=== PATIENT | female | born 1940 | race Two or more races ===

== ENCOUNTER 2021-06-16 14:56 | Emergency (ER) | payer OTHER, SELFPAY ==
--- NOTE | ~2021-06-16 | XR_ITS ---
CORRECTED REPORT WRONG NAME 06/17/21 EXAMINATION: XR hip LT 2V w AP pelvis INDICATION: Pelvic pain after fall TECHNIQUE: AP view the pelvis and two views of the left hip are obtained. COMPARISON: None available FINDINGS: Bone alignment is normal. There is no fracture. There is moderate osteoarthritis of the hips. Severe lumbar spondylosis is noted. IMPRESSION: 1. No acute osseous abnormality. Reviewed, dictated and finalized at location F. MTDD
[2021-06-16 15:08] VITALS: BP 108/61; PULSE 85; RESP 16; TEMP 36.8; O2SAT 98
--- NOTE | 2021-06-16 15:56 | ED.LOWEXIN ---
HPI - Extremity Injury (Lower) General Chief Complaint: Extremity Injury, Lower Stated Complaint: thigh injury from fall Time Seen by Provider: 06/16/21 15:50 Source: patient, family, RN notes reviewed, old records reviewed and industrial pharmacist (daughter) Mode of arrival: ambulatory Limitations: language barrier (patient speaks Korean) and other (daughter here to translate) History of Present Illness HPI Narrative: 81 year old female accompanied by daughter who translates for patient who speaks Korean presents to express care with complaint of fall onto her left hip region about 1 week ago. Patient relays information that when was on vacation and she went to get out of bed and fell onto tile floor on the posterior aspect of her left hip. Patient reports pain to posterior left hip area and outer thigh region especially if she bends over. Patient denies any pain with palpation of area, no bruising noted of area. Fall was unwitnessed and patient reports that she did not hit her head or have any other areas of discomfort at this time. Patient has had bilateral knee replacement.s complaint: hip injury Onset (ago): week(s) (1) Type of Injury: blunt Place: other (on vacation) Severity: moderate Severity scale (1-10): 4 Exacerbating factors: other (bending over) Related Data Allergies Allergy/AdvReac Type Severity Reaction Status Date / Time No Known Allergies Allergy Verified 06/16/21 15:33 Review of Systems Review of Systems: CONSTITUTIONAL: Denies fever, chills, or sweats. EYES: Denies visual changes, redness, or discharge. ENT: Denies rhinorrhea, congestion, sore throat, or otalgia. CARDIOVASCULAR: Denies chest pain, palpitations, or edema. RESPIRATORY: Denies cough or dyspnea. GASTROINTESTINAL: Denies abdominal pain, nausea, vomiting, or diarrhea. GENITOURINARY: Denies dysuria or hematuria. SKIN: Denies rash or itching. MUSCULOSKELETAL: Denies back pain,positive for posterior left hip and outer thigh pain joint pain, or myalgia. NEUROLOGIC: Denies headache, numbness, or weakness. PSYCHIATRIC: Denies anxiety or depression. All systems reviewed & are unremarkable except as noted in HPI and below PMFSH Past Medical History Medical History (Updated 06/17/21 @ 14:26 by Nya Ballard NP) Elevated cholesterol Hypertension Surgical History Surgical History (Updated 06/17/21 @ 14:26 by Nya Ballard NP) History of bilateral knee replacement Social History Social History (Updated 06/17/21 @ 14:27 by Nya Ballard NP) Smoking status: Never smoker Alcohol intake: current Alcohol use details: social Substance use: never Living arrangements: with family Gender identity (if verbalized by the patient): Female Comments At time of signature, agree with nursing past medical, surgical, social and family history. There is no relevant family history pertinent to the presenting complaint Exam Narrative: GENERAL: Well-appearing, well-nourished, and in no acute distress. HEAD: Normocephalic, atraumatic. EYES: PERRLA and EOMI. ENT: Nares clear, no rhinorrhea or epistaxis. Mucous membranes moist.TM's normal with good light reflex, throat pink with no lesions or tonsil swelling NECK: Supple.no lymphadenopathy CHEST: Clear to auscultation. No respiratory distress.SO2 98% on room air HEART: Regular rate and rhythm. No murmur heard. Normal peripheral pulses. ABDOMEN: Soft, nontender, nondistended, normal active bowel sounds. EXTREMITIES: Normal range of motion. No edema.No pain on palpation of left posterior hip or outer left thigh, pain increases when bending over patient reports, no pain stated in lumbar area, no radiation of pain down leg, Patient is able to put full weight bearing on left leg, circulation and sensation intact to left leg. SKIN: Warm, dry, no rash. NEURO: No focal deficits. Alert and oriented x3. Course Course Level of Care: Express Care Visit Vital Signs Vital signs: Vital Signs Temperature
--- NOTE | 2021-06-16 16:00 | ED.LOWEXIN ---
HPI - Extremity Injury (Lower) General Chief Complaint: Extremity Injury, Lower Stated Complaint: thigh injury from fall Time Seen by Provider: 06/16/21 15:50 Source: patient, family, RN notes reviewed and old records reviewed Mode of arrival: ambulatory Limitations: no limitations Related Data Home Medications Medication Instructions Recorded Confirmed Unable to Obtain Home Medications 06/16/21 06/16/21 Allergies Allergy/AdvReac Type Severity Reaction Status Date / Time No Known Allergies Allergy Verified 06/16/21 15:33 Review of Systems Review of Systems: CONSTITUTIONAL: Denies fever, chills, or sweats. EYES: Denies visual changes, redness, or discharge. ENT: Denies rhinorrhea, congestion, sore throat, or otalgia. CARDIOVASCULAR: Denies chest pain, palpitations, or edema. RESPIRATORY: Denies cough or dyspnea. GASTROINTESTINAL: Denies abdominal pain, nausea, vomiting, or diarrhea. GENITOURINARY: Denies dysuria or hematuria. SKIN: Denies rash or itching. MUSCULOSKELETAL: Denies back pain, joint pain, or myalgia. NEUROLOGIC: Denies headache, numbness, or weakness. PSYCHIATRIC: Denies anxiety or depression. All systems reviewed & are unremarkable except as noted in HPI and below PMFSH Comments At time of signature, agree with nursing past medical, surgical, social and family history. There is no relevant family history pertinent to the presenting complaint Exam Narrative: GENERAL: Well-appearing, well-nourished, and in no acute distress. HEAD: Normocephalic, atraumatic. EYES: PERRLA and EOMI. ENT: Nares clear, no rhinorrhea or epistaxis. Mucous membranes moist. NECK: Supple. CHEST: Clear to auscultation. No respiratory distress. HEART: Regular rate and rhythm. No murmur heard. Normal peripheral pulses. ABDOMEN: Soft, nontender, nondistended, normal active bowel sounds. EXTREMITIES: Normal range of motion. No edema. SKIN: Warm, dry, no rash. NEURO: No focal deficits. Alert and oriented x3. Course Course Level of Care: Express Care Visit Vital Signs Vital signs: Vital Signs Temperature 36.8 C 06/16/21 15:08 Pulse Rate 85 06/16/21 15:08 Respiratory Rate 16 06/16/21 15:08 Blood Pressure 108/61 06/16/21 15:08 Pulse Oximetry 98 06/16/21 15:08 Temperature 36.8 C 06/16/21 15:08 Pulse Rate 85 06/16/21 15:08 Respiratory Rate 16 06/16/21 15:08 Blood Pressure 108/61 06/16/21 15:08 Pulse Oximetry 98 06/16/21 15:08 MDM - Extremity Injury (Lower) Differential Diagnosis Differential diagnosis: Likely fracture of hip and other (Posterior hip pain, lateral thigh fall) Medical Records Attestation: I reviewed the patient's medical records. Imaging Data Attestation: I personally reviewed and interpreted this imaging study as follows: Radiologist's impression: [address] [phone] XRay ReportSigned Patient: Lakisha Nice: 1940MR#: [id number]/Sex: 81 / FAcct:[id number]: EXPBETH ADM Date: 06/16/21Attending Dr: Ordering Physician: Nya Ballard APN Date of Service: 06/16/21 Procedure(s): XR hip LT 2V w AP pelvis Accession Number(s): [id number] cc: Nya Ballard APN; UNKNOWN,DOCTOR~ EXAMINATION: XR hip LT 2V w AP pelvis INDICATION: Pelvic pain after fall TECHNIQUE: AP view the pelvis and two views of the left hip are obtained. COMPARISON: None available FINDINGS: Bone alignment is normal. There is no fracture. There is moderate osteoarthritis of the hips. Severe lumbar spondylosis is noted. IMPRESSION: 1. No acute osseous abnormality. Reviewed, dictated and finalized at location F. Dictated By: Waylon Terrazas MD 06/16/21 1548 Signed By: <Electronically signed by Waylon Terrazas MD in OV> Critical Care Time Critical Care Time Critical Care Time: No
== END 2021-06-16 16:19 | disposition home or self-care (01) ==
PROVIDERS: Emergency Provider Registered Nurse
DX: M79.652 Pain in left thigh (principal); E78.00 Pure hypercholesterolemia, unspecified; I10 Essential (primary) hypertension
CPT/HCPCS: 73502; 99213; G0463

== ENCOUNTER 2024-11-04 11:10 | Outpatient (NON) | payer OTHER, SELFPAY ==
[2024-11-04 11:54] LABS: Add Urine Microscopic? YES; Appearance Urine Cloudy (Clear); Glucose Urine UA Negative (Negative); Leukocyte Esterase Ur 1+ LEU/UL (Negative); Nitrate Urine Negative (Negative); Non Pathogenic Casts 0-2; Specific Grav Ur 1.015 (1.001-1.035)
--- OUTSIDE RECORDS SUMMARY | 2024-11-04 13:03 | XMS_ITS | Encounter Summary ---
Author Organization [facility] Address [address] [place] [address] Phone Care Team Providers Care Traditional Maori Health Practitioner Name Role Phone Sergei Kapoor DO Primary Care Provider Jaguar Julio NP Unavailable [phone] Milan Cid MD Primary Care Provider [phone] Allyssa Escobar MA Unavailable Isaías Peoples MD Primary Care Provi kori Thad Fuentes MD Unavailable [phone] Scarlett Gibbons RN Unavailable [phone] Encounter Details Date Type Department Care Team (Late st Contact Info) Description 05/23/2017 Orders Only [facility] ProviderElba MD [facility] [place] [address] Social History Tobacco Use Types Packs/Day Years Used Date Smoking Tobacco: Never Smokeless Tobacco: Never Alcohol Use Standard Drinks/Week Comments No 0 (1 standard drink = 0.6 oz pur e alcohol) Comments Unknown Sex and Gender Information Value Date Recorded Sex Assigned at Not on file Legal Sex Female 7:47 PM MEDICAL ECONOMICS CONSULTANT Gender Identity Not on file Sexual Orientation Not on file documented as of this encounter Plan of Treatment Not on file documented as of this encounter Procedures Procedure Name Priority Date/Time Associated Diagnosis Comments DISCHARGE LABORATORY CUMULATIVE REPORT 05/23/2017 12:00 AM CDT documented in this encounter Results * DISCHARGE LABORATORY CUMULATIVE REPORT (05/23/2017 12:00 AM CDT) Narrative 05/23/2017 12:00 AM CDT Ordered by an unspecified provider. us Historical Provider LAB BLOOD ORDERABLES Dione l Result documented in this encounter Visit Diagnoses Not on filedocumented in this encounter Additional Health Concerns Infection Onset Date Last Indicated Resolved Time COVID: Suspected 03/31/2023 03/31/2023 03/31/2023 2:08 PM MEDICAL ECONOMICS CONSULTANT MDR gram neg/ESBL Comment:Contact Precautions (gown and gloves) Must be off effective antibiotics for at least 48 hours, 1 negative culture from original site (if accessible) AND 1 negative culture from any open wounds AND 1 culture from any body site with an indwelling device prior to flag removal. - Konstantin MORRISSEY, RN 06/19/24 09/18/2023 09/18/2023 06/20/2024 2:23 PM C DT documented as of this encounter Care Teams Traditional Maori Health Practitioner Relationship Specialty Start Date End Date Sergei Kapoor DO [address] [facility] [address] [place] [address] PCP - General Internal Medicine 10/02/16 08/28/23 Milan Cid MD [address] [place] [address] PCP - General Family Medicine 08/29/23 04/13/24 Isaías Peoples MD [address] [facility] [address] [place] [address] PCP - General Family Practice 04/14/24 Jaguar uJlio, SENIOR NET C DEVELOPER [address] [facility] [address] [place] [address] Nurse Practitioner Geriatric Medicine 08/23/22 10/02/23 Allyssa Escobar MA [address] [facility] [address] [place] [address] ACO Care Market Developer 09/19/23 09/20/23 Thad Fuentes MD [address] [place] [address] [address] [place] [address] Surgeon Orthopedic Surgery 09/30/24 Scarlett Gibbons RN [address] [place] [address] [address] [place] [address] Rail Walker 10/28/24 documented as of this encounter
--- OUTSIDE RECORDS SUMMARY | 2024-11-04 13:04 | XMS_ITS | Encounter Summary ---
Author Organization [facility] Address [address] [place] [address] Phone Care Team Providers Care Clinical Professor Name Role Phone Isaías Peoples MD Primary Care Provi kori Encounter Details Date Type Department Care Team (Latest Contact Info) Description 09/11/2024 Transcribe Orders [facility] Preop/Pacu II [address] [place] [address] Justin Boykin MD [address] [place] [address] Pre-op testing (Primary Dx) Social History Tobacco Use Types Packs/Day Years Used Date Smoking Tobacco: Never Smokeless Tobacco: Never Alcohol Use Standard Drinks/Week Comments Yes 0 (1 standard drink = 0.6 oz pur e alcohol) rarely Social Connection and Isolation Panel Answer Date Recorded In a typical week, how many times do you talk on the phone with family, friends, or neighbors? Patient declined 08/17/2024 How often do you get togethe r with friends or relatives? Patient declined 08/17/2024 How often do you attend adventist or mandaeism serv ices? Patient declined 08/17/2024 Do you belong to any clubs o r organizations such as adventist groups, unions, fraternal or athletic groups, or school groups? Patient declined 08/17/2024 How often do you attend meet ings of the clubs or organizations you belong to? Patient declined 08/17/2024 Are you , , di vorced, , never , or living with a partner? Patient declined 08/17/2024 AUDIT-C Answer Date Recorded Q1: How often do you have a drink containing alc ohol? Patient declined 08/17/2024 Q2: How many drinks containi ng alcohol do you have on a typical day when you are drinking? Patient declined 08/17/2024 Q3: How often do you have si x or more drinks on one occasion? Patient declined 08/17/2024 Overall Financial Resource Strain (CARDIA) Answe r Date Recorded How hard is it for you to pa y for the very basics like food, housing, medical care, and heating? Patient declined 08/17/2024 [facility] - Occupational Stress Questionnaire Answer Date Recorded Do you feel stress - tense, restless, nervous, or anxious, or unable to sleep at night because your mind is troubled all the time - these days? Patient declined 08/17/2024 Exercise Vital Sign Answer Date Recorde d On average, how many days pe r week do you engage in moderate to strenuous exercise (like a brisk walk)? Patient declined On average, how many minutes do you engage in exercise at this level? Patient declined 08/17/2024 Hunger Vital Sign Answer Date Recorded Within the past 12 months, y ou worried that your food would run out before you got the money to buy more. Patient declined Within the past 12 months, t he food you bought just didn't last and you didn't have money to get more. Patient declined PRAPARE - Transportation Answer Date Re corded In the past 12 months, has l ack of transportation kept you from medical appointments or from getting medications? Patient declined 08/17/2024 In the past 12 months, has l ack of transportation kept you from meetings, work, or from getting things needed for daily living? Patient declined 08/17/2024 Housing Stability Vital Sign Answer Edi e Recorded In the last 12 months, was t here a time when you were not able to pay the mortgage or rent on time? Patient declined 08/18/19 25 In the past 12 months, how m any times have you moved where you were living? 1 08/17/2024 At any time in the past 12 m [facility], were you homeless or living in a jail (including now)? Patient declined 08/17/2024 [facility] Utilities Answer Date Recorded In the past 12 months has e electric, gas, oil, or water company threatened to shut off services in your home? Patient declined 08/17/2024 Comments No Sex and Gender Information Value Date Recorded Sex Assigned at Not on file Legal Sex Female 12:15 AM CDT Gender Identity Not on file Sexual Orientation Not on file documented as of this encounter Plan of Treatment Scheduled Orders Name Type Priority Associated Diagnoses Orde r Schedule TYPE & SCREEN (CROSSMATCH CONVERTIBLE) Blood Bank Routine Pre-op testing Expected: 09/23/2024, Expires: 12/12/2024 documented as of this encounter Visit Diagnoses Diagnosis Pre-op testing- Primary Preoperative examination, unspecified documented in this encounter Additional Health Concerns Infection Onset Date Last Indicated Resolved Time Other Comment:Possible Shingles 08/25/2024 08/25/2024 COVID - 19 09/12/2024 09/12/2024 09/22/2024 10:5 8 PM CDT documented as of this encounter Care Teams Clinical Professor Relationship Specialty Start Date End Date Isaías Peoples MD [address] [place] [address] PCP - General Family Medicine 08/17/24 documented as of this encounter
--- OUTSIDE RECORDS SUMMARY | 2024-11-04 13:04 | XMS_ITS | Encounter Summary ---
Author Organization [facility] Address [address] [place] [address] Care Team Providers Care Financial Business Analyst Name Role Phone Isaías Peoples MD Primary Care Provi kori Thad Fuentes MD Unavailable [phone] Scarlett Gibbons RN Unavailable [phone] Reason for Visit * Reason Onset Date Comments several concerns/quesitons 10/28/2024 Encounter Details Date Type Department Care Team (Late st Contact Info) Description 10/28/2024 Telephone [facility] Primary Care at [address] [place] [address] Isaías Peoples MD [address] [place] [address] [address] [place] [address] several concerns/quesitons Social History Tobacco Use Types Packs/Day Years Used Date Smoking Tobacco: Never Smokeless Tobacco: Never Alcohol Use Standard Drinks/Week Comments Not Currently 0 (1 standard drink = 0.6 oz pur e alcohol) OASIS D0700: Social Isolation Answer Da te Recorded Frequency of experiencing loneliness or isolatio n Rarely 07/16/2024 OASIS A1250: Transportation Answer Date Recorded Lack of Transportation (Medical) No 07/16/2024 Lack of Transportation (Non-Medical) No 07/16/2024 Patient Unable or Declines to Respond No 07/16/2024 OASIS B1300: Health Literacy Answer Edi e Recorded Frequency of needing help to read materials from doctor or pharmacy Often 07/16/2024 Social Connection and Isolation Panel Answer Date Recorded In a typical week, how many times do you talk on the phone with family, friends, or neighbors? More than three times a week 09/30/2024 How often do you get togethe r with friends or relatives? More than three times a week 09/30/2024 How often do you attend chur ch or mandaeism services? Never 09/30/2024 Do you belong to any clubs o r organizations such as yazidi groups, unions, fraternal or athletic groups, or school groups? No 09/30/2024 How often do you attend meet ings of the clubs or organizations you belong to? Never 09/30/2024 Are you , , di vorced, , never , or living with a partner? 09/30/2024 AUDIT-C Answer Date Recorded Q1: How often do you have a drink containing alcohol? Never 09/29/2024 Q2: How many drinks containi ng alcohol do you have on a typical day when you are drinking? Patient does not drink Q3: How often do you have si x or more drinks on one occasion? Never 09/29/2024 Overall Financial Resource Strain (CARDIA) Answe r Date Recorded How hard is it for you to pa y for the very basics like food, housing, medical care, and heating? Not very hard 09/30/2024 PHQ-2 Answer Date Recorded PHQ-2 Total Score (If total score is 3 or more points, staff should administer the PHQ-9) 0 04/17/2024 Exercise Vital Sign Answer Date Recorde d On average, how many days pe r week do you engage in moderate to strenuous exercise (like a brisk walk)? 0 days Minutes of Exercise per Session Not on file 01/04/2023 PRAPARE - Transportation Answer Date Re corded In the past 12 months, has l ack of transportation kept you from medical appointments or from getting medications? No 06/2024 In the past 12 months, has l ack of transportation kept you from meetings, work, or from getting things needed for daily living? No 09/30/2024 PHQ-9 Answer Date Recorded PHQ-9 Total Score 0 04/17/2024 Housing Stability Vital Sign Answer Edi e Recorded In the last 12 months, was t here a time when you were not able to pay the mortgage or rent on time? No 09/30/2024 In the past 12 months, how m any times have you moved where you were living? 0 09/30/2024 At any time in the past 12 m [facility], were you homeless or living in a longterm (including now)? No 09/30/2024 Social Connection and Isolation Panel Answer Date Recorded In a typical week, how many times do you talk on the phone with family, friends, or neighbors? More than three times a week 10/28/2024 How often do you get togethe r with friends or relatives? More than three times a week 10/28/2024 How often do you attend chur ch or mandaeism services? Never 10/28/2024 Do you belong to any clubs o r organizations such as yazidi groups, unions, fraternal or athletic groups, or school groups? No 10/28/2024 How often do you attend meet ings of the clubs or organizations you belong to? Never 10/28/2024 Are you , , di vorced, , never , or living with a partner? 10/28/2024 Overall Financial Resource Strain (CARDIA) Answe r Date Recorded How hard is it for you to pa y for the very basics like food, housing, medical care, and heating? Not very hard 10/28/2024 Hunger Vital Sign Answer Date Recorded Within the past 12 months, y ou worried that your food would run out before you got the money to buy more. Never true 10/29/19 25 Within the past 12 months, t he food you bought just didn't last and you didn't have money to get more. Never true 10/28/2024 PRAPARE - Transportation Answer Date Re corded In the past 12 months, has l ack of transportation kept you from medical appointments or from getting medications? No 03/2024 In the past 12 months, has l ack of transportation kept you from meetings, work, or from getting things needed for daily living? No 10/28/2024 Housing Stability Vital Sign Answer Edi e Recorded In the last 12 months, was t here a time when you were not able to pay the mortgage or rent on time? No 10/28/2024 In the past 12 months, how m any times have you moved where you were living? 0 10/28/2024 At any time in the past 12 m [facility], were you homeless or living in a longterm (including now)? No 10/28/2024 [facility] Utilities Answer Date Recorded In the past 12 months has th e electric, gas, oil, or water company threatened to shut off services in your home? No 10/28/2024 Personal Safety Answer Date Recorded Have you ever been in or are you currently in a harmful physical or emotional relationship or is someone making you feel afraid or unsafe? 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 condition/symptom, date of COVID exposure if applicable): symptoms of a UTI Details Regarding Additional Services (e.g. type of home health, type of equipment, type of test, etc.): Urinalysis/Culture Where will services be performed? (if outside of the practice, facility name, address, phone/fax offacility): [facility] Additional Comments: Dedra with [facility] called in to relay the patient has had symptoms of a UTI going on for 3 days and would like to see if the PCP will send an order and she can collect specimen. DRYING MACHINE OPERATOR reached out to the back line and was instructed to send a HP message. Does message need to be routed? Yes-Action Needed * Telephone Encounter - Lovely Murphy MA - 10/31/2024 4:02 PM CDT Called No Answer, LVM to call the office * Telephone Encounter - Scarlett Gibbons RN - 10/30/2024 2:33 PM CDT Please address below submitted on 10/28. * Telephone Encounter - Scarlett Gibbons RN - 10/28/2024 1:27 PM CDT Pt DC from [facility] 10/26 s/p An[employer]ER. She was DC'd w/o orders for HHC, can you please place an order for HHC via [facility] w/ RN, PT/OT for SOC11/03. Additionally wanting clarification of Lisinopril dosing. Initially was hypotensive and they had cuther dose to 2.5mg, prior to surgery dose was 5mg. Dtr is currently giving 5mg, BP yesterday prior to dose was 151/81, and after was 140/60. She just wants to know which dose you want her to take. She is scheduled for LINDA in office on 11/06/24, they declined being seen sooner. Pt is currently staying w/ dtr through the weekend, and then the other dtr will stay w/ her when she goes to her own home. Thank you, Scarlett MARIEN, RN, [facility] Assistant Boiler Operator [phone] documented in this encounter Plan of Treatment Scheduled Orders Name Type Priority Associated Diagnoses Orde r Schedule Urinalysis reflex to microscopic and culture Urine Microbiology Routine Dysuria Expected: 11/03/2024, Expires: 11/03/2025 documented as of this encounter Goals Goal Patient Goal Type Associated Problems Recent Progress Patient-Stated? Author Autogenera yvrose Goal Care Plan Autogenerated Problem Rosalinda Jeter MA documented as of this encounter Visit Diagnoses Diagnosis Dysuria- Primary documented in this encounter Additional Health Concerns Active Problems Noted Date Diagnosed Date Autogenerated Problem 09/30/2024 documented as of this encounter Care Teams Financial Business Analyst Relationship Specialty Start Date End Date Isaías Peoples MD [address] [facility] [address] [place] [address] PCP - General Family Practice 04/14/24 Thad Fuentes MD [address] [facility] [address] [place] [address] Surgeon Orthopedic Surgery 09/30/24 Scarlett Gibbons, RN [address] [place] [address] [address] [place] [address] Assistant Boiler Operator 10/28/24 documented as of this encounter
--- OUTSIDE RECORDS SUMMARY | 2024-11-04 13:04 | XMS_ITS | Clinical Summary ---
Author Organization [facility] Address [address] [place] [address] Phone Care Team Providers Care Blood Bank Calendar Control Clerk Name Role Phone Isaías Peoples MD Primary Care Provi kori Allergies Active Allergy Reactions Criticality Noted Date Comments Cefazolin Rash 08/21/2024 Fentanyl And Related Rash 08/21/2024 Morphine Rash,Itching 08/17/2024 Penicillins Hives Medium 08/17/2024 Sulfa Antibiotics Rash 01/15/2023 Medications diclofenac (VOLTAREN) 75 MG Tablet Delayed Response Take 75 mg by mouth daily. 5 Active DULoxetine (CYMBALTA) [address] Particles Take 30 mg by mouth every morning. 5 04/17/19 Active rosuvastatin (CRESTOR) 40 MG Tablet Take 40 mg by mouth daily. 5 Active pantoprazole (PROTONIX) 40 MG Tablet Delayed Response Take 40 mg by mouth daily. Active ezetimibe (ZETIA) 10 MG Tablet Take 10 mg by mouth daily. 5 07/15/19 26 Active diphenhydrAMINE (BENADRYL) 25 MG Capsule Take 1 Capsule by mouth 4 times daily. 100 Capsule 5 Active Additional Information Patient not taking.Reported on 09/11/2024 gabapentin (NEURONTIN) 100 MG Capsule Take 1 Capsule by mouth 3 times daily. 90 Capsule 5 Active Additional Information Patient taking differently:100 mg Oral 3 TIMES DAILY,Indications: Neuropathic Pain, Reported on 09/11/2024 hydrocortisone 1 % Cream Apply 2 times daily. Application Site: skin rash (Description and Location) Active Additional Information Patient taking differently:TopicalPRN, Application Site: skin rash (Description and Location), Reported on 09/11/2024 lisinopril (PRINIVIL, ZESTRIL) 5 MG Tablet Take 1 Tablet by mouth every evening. 90 Tablet 5 Active polyethylene glycol (GLYCOLAX, MIRALAX) 17 g Pack Take 1 Packet by mouth daily. Dissolve in 4-8 oz of liquid. 90 Packet 5 Active traMADol (ULTRAM) 50 MG TabletIndicatio ns:Right hip pain,Avascular necrosis of bone of hip, right (HCC) Take 1 Tablet by mouth every 6 hours as needed for Moderate or more severe pain. 50 Tablet 5 Active Active Problems Problem Noted Date Diagnosed Date Hypertension 08/25/2024 Drug rash 08/22/2024 Primary osteoarthritis of right hip 08/21/2024 Avascular necrosis of bone of hip, right 025 Weakness 08/17/2024 Encounters Date Type Department Care Team Description 09/12/2024 Transcribe Orders [facility] Central Scheduling [address] [place] [address] Justin Boykin MD Osteoarthritis of right hip, unspecified osteoarthritis type (Primary Dx) 09/11/2024 Transcribe Orders [facility] Preop/Pacu II [address] [place] [address] Justin oBykin MD Pre-op testing (Primary Dx) 09/11/2024 Travel 08/21/2024 8:11 AM CDT Anesthesia Event [facility] Periop [address] [place] [address] Barney Hansen APRN, PITO 08/21/2024 7:10 AM CDT - 08/21/2024 10:10 AM CDT [facility] Periop [address] [place] [address] Justin Boykin MD Not Performed RIGHT TOTAL HIP REPLACEMENT 08/17/2024 6:44 AM CDT - 08/25/2024 6:08 PM CDT Hospital Encounter [facility] Med Surg [address] [place] [phone] Vandana Bernal MD Patel, Satyen V, MD Dianati, Behfar, MD Avascular necrosis of bone of hip, right (HCC) Discharge Disposition: Discharged/Transferred to [facility] 08/17/2024 Travel from Last 3 Months Family History Medical History Relation Name Comments Chronic Obstructive Pulmonary Disease Father Hypertension Mother Stroke Mother Relation Name Status Comments Father Mother Social History Tobacco Use Types Packs/Day Years Used Date Smoking Tobacco: Never Smokeless Tobacco: Never Tobacco Cessation:Counseling Given: Not Answered Alcohol Use Standard Drinks/Week Comments Yes 0 [...] declined 08/17/2024 How often do you attend protestant or sikh serv ices? Patient declined 08/17/2024 Do you belong to any clubs o r organizations such as protestant groups, unions, fraternal or athletic groups, or [...] medical care, and heating? Patient declined 08/17/2024 [facility] Olla of Occupat ional [facility] - Occupational Stress Questionnaire Answer Date Recorded [...] any time in the past 12 m [facility], were you homeless or living in a fci (including now)? Patient declined 08/17/2024 [facility] Utilities Answer Date Recorded In the past 12 months has th e electric, gas, oil, or water company threatened to shut off services in your home? Patient declined 08/17/2024 Comments No Sex and Gender Information Value Date Recorded Sex Assigned at Not on file Legal Sex Female 12:15 AM CDT Gender Identity Not on file Sexual Orientation Not on file Last Filed Vital Signs Vital Sign Reading Time Taken Comments Blood Pressure 114/39 08/25/2024 1:49 PM CDT rn notified Pulse 84 08/25/2024 1:49 PM CDT Temperature 37.2 C (98.9 F) 08/25/2024 1:49 PM CDT Respiratory Rate 18 08/25/2024 1:49 PM CDT Oxygen Saturation 96% 08/25/2024 1:4 9 PM CDT Inhaled Oxygen Concentration - - Weight 72.9 kg (160 lb 12.8 oz) 09/11/2024 1:28 PM CDT Height 160 cm (5' 3) 09/11/2024 1:28 PM CDT Body Mass Index 28.48 09/11/2024 1:28 PM CDT Plan of Treatment Health Maintenance Due Date Last Done Comments Hepatitis C Virus (HCV) Screening 1940 TdaP Immunization 1940 Respiratory Syncytial Virus (RSV) Immunization (Adult) (1 - 1-dose 75+ series) 2013 DEXA Bone Density 01/06/2023 01/06/2021 Influenza Immunization (#1) 2024 11/0 10/2022, 12/09/2021, 12/08/2021, Additional history exists SARS-COV-2 Immunization ( season) 2024 05/04/2020 Pneumococcal Immunization (50+ years) Completed 04/19/2015, 02/22/2014 Zoster Immunization Completed 03/31/2020, 03/06/2019, 01/04/2019 Hepatitis B Immunization Aged Out No longer eligible based on patient's age to complete this topic Human Papillomavirus (HPV) Immunization Aged Out No longer eligible based on patient's age to complete this topic Meningococcal Immunization (ACWY) Aged Out No longer eligible based on patient's age to complete this topic Rotavirus Immunization Aged Out No lo nger eligible based on patient's age to complete this topic Procedures Procedure Name Priority Date/Time Associated Diagnosis Comments CBC WITH AUTO DIFFERENTIAL Routine 08/25/2024 4:59 AM CDT BASIC METABOLIC PANEL W/ CALCIUM TOTAL Routine 08/25/2024 4:59 AM CDT COMPLETE BLOOD COUNT (CBC) WITH DIFF Routine 08/25/2024 4:59 AM CDT CBC WITH AUTO DIFFERENTIAL Routine 08/24/2024 4:41 AM CDT BASIC METABOLIC PANEL W/ CALCIUM TOTAL Routine 08/24/2024 4:41 AM CDT COMPLETE BLOOD COUNT (CBC) WITH DIFF Routine 08/24/2024 4:41 AM CDT CBC WITH AUTO DIFFERENTIAL Routine 08/23/2024 4:14 AM CDT BASIC METABOLIC PANEL W/ CALCIUM TOTAL Routine 08/23/2024 4:14 AM CDT COMPLETE BLOOD COUNT (CBC) WITH DIFF Routine 08/23/2024 4:14 AM CDT CBC WITH AUTO DIFFERENTIAL Routine 08/22/2024 6:42 AM CDT COMPLETE BLOOD COUNT (CBC) WITH DIFF Routine 08/22/2024 6:42 AM CDT BASIC METABOLIC PANEL W/ CALCIUM TOTAL Routine 08/22/2024 6:42 AM CDT INTUBATION IN OR Routine 08/21/2024 8:41 AM CDT CBC WITH AUTO DIFFERENTIAL Routine 08/21/2024 6:11 AM CDT COMPLETE BLOOD COUNT (CBC) WITH DIFF Routine 08/21/2024 6:11 AM CDT BASIC METABOLIC PANEL W/ CALCIUM TOTAL Routine 08/21/2024 6:11 AM CDT CBC WITH AUTO DIFFERENTIAL Routine 08/20/2024 6:19 AM CDT TYPE & SCREEN (CROSSMATCH CONVERTIBLE) Routine 08/20/2024 6:19 AM CDT COMPLETE BLOOD COUNT (CBC) WITH DIFF Routine 08/20/2024 6:19 AM CDT BASIC METABOLIC PANEL W/ CALCIUM TOTAL Routine 08/20/2024 6:19 AM CDT ABO/RH (D) RECHECK Routine 08/20/2024 4: 24 AM CDT XR HIP 2-3 VIEWS W/PELVIS UNILATERAL RIGHT Routine 08/19/2024 7:47 PM CDT XR CHEST SINGLE VIEW PORTABLE Routine 08/19/2024 7:44 PM CDT CBC WITH AUTO DIFFERENTIAL Routine 08/19/2024 4:24 AM CDT BASIC METABOLIC PANEL W/ CALCIUM TOTAL Routine 08/19/2024 4:24 AM CDT COMPLETE BLOOD COUNT (CBC) WITH DIFF Routine 08/19/2024 4:24 AM CDT ADULT TRANS THORACIC ECHO 2D COMPLT W CONT Routine 08/18/2024 11:20 AM CDT US PELVIS LIMITED-NON OB Routine 08/18/2024 8:10 AM CDT CBC WITH AUTO DIFFERENTIAL Routine 08/18/2024 3:59 AM CDT LACTIC ACID (LACTATE) Routine 08/18/2024 3:59 AM CDT BASIC METABOLIC PANEL W/ CALCIUM TOTAL Routine 08/18/2024 3:59 AM CDT COMPLETE BLOOD COUNT (CBC) WITH DIFF Routine 08/18/2024 3:59 AM CDT LACTIC ACID (LACTATE) STAT 08/17/2024 3:02 PM CDT CULTURE, BLOOD STAT 08/17/2024 3:02 PM CDT CULTURE, BLOOD STAT 08/17/2024 3:[address] RIGHT HIP WO CONTRAST Stat with Interpretation 08/17/2024 12:51 PM CDT URINALYSIS REFLEX IF INDICATED BY ABNORMAL RESULTS STAT 08/17/2024 10:43 AM CDT CREATINE KINASE (CK) TOTAL STAT 08/17/2024 8:31 AM CDT C-REACTIVE PROTEIN (CRP) QUANT STAT 08/17/2024 8:31 AM CDT TROPONIN I, HIGH SENSITIVITY (HSTRP) STAT 08/17/2024 8:31 AM CDT XR FEMUR MIN 2V RIGHT STAT 08/17/2024 8:01 AM CDT XR KNEE 1 OR 2 VIEWS RIGHT STAT 08/17/2024 8:01 AM CDT CBC WITH AUTO DIFFERENTIAL STAT 08/17/2024 7:17 AM CDT HEMOGLOBIN A1C W/ ESTIMATED GLUCOSE STAT 08/17/2024 7:17 AM CDT ERYTHROCYTE SEDIMENTATION RATE (ESR) STAT 08/17/2024 7:17 AM CDT TROPONIN I, HIGH SENSITIVITY (HSTRP) STAT 08/17/2024 7:17 AM CDT CMP (COMPREHENSIVE METABOLIC PANEL) STAT 08/17/2024 7:17 AM CDT COMPLETE BLOOD COUNT (CBC) WITH DIFF STAT 08/17/2024 7:17 AM CDT EKG 12 LEAD STAT 08/17/2024 6:53 AM CDT CRITICAL CARE Routine 08/17/2024 6:48 AM CDT EKG SCAN 08/17/2024 12:00 AM CDT from Last 3 Months Results * (ABNORMAL) CBC with Auto Differential (08/25/2024 4:59 AM CDT) Only the most recent of9 resultswithin the time period is included. WBC 13.57(H) 4.00 - 12.00 10(3)/mcL 08/25/2024 5:16 AM CDT [facility] RBC 3.61(L) 3.80 - 5.30 10(6)/mcL 08/25/2024 5:16 AM CDT [facility] HEMOGLOBIN (HGB) 10.9(L) 12.0 - 15.8 g/dL 08/25/2024 5:16 AM CDT [facility] HEMATOCRIT (HCT) 33.7(L) 36.0 - 47.0 % 08/25/2024 5:16 AM CDT [facility] MCV 93.4 82.0 - 96.0 fL 08/25/2024 5:16 AM CDT [facility] MCH 30.2 26.0 - 34.0 pg 08/25/2024 5:16 AM CDT [facility] MCHC 32.3 31.0 - 36.0 g/dL 08/25/2024 5:16 AM CDT [facility] PLATELET COUNT 284 140 - 440 10(3)/mcL 08/25/2024 5:16 AM CDT [facility] RDW 13.4 11.8 - 15.5 % 08/25/2024 5:16 AM CDT [facility] MPV 9.8 9.7 - 12.4 fL 08/25/2024 5:16 AM CDT [facility] NEUTROPHILS 84.3(H) 47.0 - 73.0 % 08/25/2024 5:16 AM CDT [facility] LYMPHOCYTES 10.9(L) 18.0 - 42.0 % 08/25/2024 5:16 AM CDT [facility] MONOCYTES 2.8(L) 4.0 - 12.0 % 08/25/2024 5:16 AM CDT [facility] EOSINOPHILS 1.0 0.0 - 5.0 % 08/25/2024 5:16 AM CDT [facility] BASOPHILS 0.3 0.0 - 1.0 % 08/25/2024 5:16 AM CDT [facility] IMMATURE GRANULOCYTE 0.7(H) 0.0 - 0.4 % 08/25/2024 5:16 AM CDT [facility] Comment:Immature Granulocyte s includes Metamyelocytes, Myelocytes, and Promyelocytes. ABSOLUTE NEUTROPHILS 11.43(H) 1.60 - 7.70 10(3)/mcL 08/25/2024 5:16 AM CDT [facility] ABSOLUTE LYMPHOCYTES 1.48 1.30 - 3.20 10(3)/mcL 08/25/2024 5:16 AM CDT [facility] ABSOLUTE MONOCYTES 0.38 0.20 - 1.00 10(3)/[facility] 08/25/2024 5:16 AM CDT [facility] ABSOLUTE EOSINOPHIL 0.14 0.00 - 0.40 10(3)/[facility] 08/25/2024 5:16 AM CDT [facility] ABSOLUTE BASOPHILS 0.04 0.00 - 0.10 10(3)/[facility] 08/25/2024 5:16 AM CDT [facility] ABSOLUTE IMMATURE GRANULOCYTE 0.10(H) 0.00 - 0.03 10 (3) mcL. 08/25/2024 5:16 AM CDT [facility] NRBC PER 100 WBC 0 08/26/19 5:16 AM CDT [facility] Blood Venipuncture / Unknown 08/25/2024 4:59 AM CDT 08/25/2024 5:08 AM CDT us Cuca Conde CONCRETE BATCHER, CARRIER DRIVER HEMATOLOGY ORDERABLES Final Result [facility] [address] [place] [address] * (ABNORMAL) Basic Metabolic Panel w/ Calcium Total (08/25/2024 4:59 AM CDT) Only the most recent of8 resultswithin the time period is included. SODIUM 136 136 - 145 mmol/L 08/25/2024 5:38 AM CDT [facility] POTASSIUM 5.2(H) 3.5 - 5.1 mmol/L 08/25/2024 5:38 AM CDT [facility] CHLORIDE 105 98 - 107 mmol/L 08/25/2024 5:38 AM CDT [facility] CO2, VENOUS 22 22 - 30 mmol/L 08/25/2024 5:38 AM CDT [facility] ANION GAP 14.2 <18.0 mmol/L 08/25/2024 5:38 AM CDT [facility] GLUCOSE 142(H) 70 - 99 mg/dL 08/25/2024 5:38 AM CDT [facility] BUN 29(H) 10 - 20 mg/dL 08/25/2024 5:38 AM CDT [facility] CREATININE, BLOOD 0.73 0.60 - 1.00 mg/dL 08/25/2024 5:38 AM CDT [facility] BUN/CREATININE RATIO 40(H) 12 - 20 ratio 08/25/2024 5:38 AM CDT [facility] CALCIUM 9.0 8.7 - 10.5 mg/dL 08/25/2024 5:38 AM CDT [facility] GFR, ESTIMATED >60 >=60 08/25/2024 5:38 AM CDT [facility] Comment: Creatinine Clearance is the preferred criteria for selecting drug dose adjustments in renally impaired patients. The GFR is provided as additional pertinent clinical information. GFR is reported in mL/min/1.73 sq m. Calculation based on the Chronic Kidney Disease Epidemiology Collaboration (CKD- EPI) equation refit without adjustment for race. GFR, EST. >60 >=60 08/25/ 025 5:38 AM CDT [facility] GFR, EST. NONAFRICAN >60 >=60 08/25/2024 5:38 AM CDT [facility] Blood Venipuncture / Unknown 08/25/2024 4:59 AM CDT 08/25/2024 5:08 AM CDT Cuca Conde APRN, CNP CHEMISTRY ORDERABLES Final Result [facility] [address] [place] [address] * Intubation in OR (08/21/2024 8:41 AM CDT) Narrative Barney Hansen APRN, CRNA - 08/21/2024 8:41 AM CDT Barney Hansen APRN, CRNA 08/21/2024 8:42 AM Intubation in OR Staffing Performed: resident/PITO Resident/FINANCIAL INTERN: Barney Hansen APRN, CRNA Performed by: Barney Hansen APRN, CRNA Authorized by: Barney Hansen APRN, CRNA Overall Difficulty: Easy Procedure Details Ease of mask ventilation: not attempted Intubation Site: oral Tube Type: Standard Cuffed: yes Intubation Method: Direct laryngoscopy Cricoid Pressure: Yes Rapid Sequence: No Blade Used: MAC Blade size: #4 Stylet Used: Yes Laryngeal View: Grade I Tube Size: 7 mmConfirmation: breath sounds and +EtCO2 Depth: 19 cm Atraumatic: Atraumatic intubation Barney Hansen APRN, CRNA ANESTHESIA ORDERAB LES Final Result * TYPE & SCREEN (CROSSMATCH CONVERTIBLE) (08/20/2024 6:19 AM CDT) ABO TYPING A 08/20/2024 7:57 AM CDT [facility] RH Positive 08/20/2024 7:57 AM CDT [facility] ABSC Negative 08/20/2024 7:57 AM CDT [facility] Blood Venipuncture / Unknown 08/20/2024 6:19 AM CDT 08/20/2024 6:35 AM CDT us Justin Boykin MD BLOOD BANK ORDERABLES Edited Res ult - Final Performing Organization Address [facility]/ZIP Co de Phone Number [facility] [address] [place] [address] * ABO/RH (D) RECHECK (08/20/2024 4:24 AM CDT) ABO TYPING A 08/20/2024 10:52 AM CDT [facility] RH Positive 08/20/2024 10:52 AM CDT [facility] Blood Venipuncture / Unknown 08/20/2024 4:24 AM CDT 08/20/2024 9:38 AM CDT us Yolis Garcia MD PhD BLOOD BANK ORDERABLES Final Result Performing Organization Address [facility] Co de Phone Number [facility] [address] [place] [address] * XR HIP 2-3 VIEWS W/PELVIS UNILATERAL RIGHT (08/19/2024 7:47 PM CDT) Anatomical Region Laterality Modality LOWER EXTREMITY, hip, Pelvis Right Dig ital Radiography 08/19/2024 8:06 PM CDT Impressions 08/19/2024 8:08 PM CDT IMPRESSION: Degenerative change involving both hips, right greater than left. No evidence of fracture. Narrative 08/19/2024 8:08 PM CDT EXAM DESCRIPTION: XR HIP 2-3 VIEWS W/PELVIS UNILATERAL RIGHT REASON FOR STUDY: pt is having severe RT hip pain and is bone on bone. hx of DJD. pt schedule for surgery. TECHNIQUE: Three radiographic views of the pelvis and right hip . COMPARISON: None. FINDINGS: Three views of the pelvis and right hip demonstrate no fracture. There is degenerative axial and superior narrowing of the right hip joint and degenerative axial narrowing of the left hip joint. There is some flattening of the right femoral head with osteophytic spurring about the right acetabulum and right femoral head. Degenerative change involving the visualized lower lumbar spine. THIS IS AN ELECTRONICALLY VERIFIED FINAL REPORT 08/19/2024 8:06 PM - Electronically signed by Barney Torres M.D. KT: JILLIAN Report ID: [id number] Reading Location: [id number] Procedure Note Barney Torres MD - 08/19/2024 EXAM DESCRIPTION: XR HIP 2-3 VIEWS W/PELVIS UNILATERAL RIGHT REASON FOR STUDY: pt is having severe RT hip pain and is bone on bone. hx of DJD. pt schedule for surgery. TECHNIQUE: Three radiographic views of the pelvis and right hip . COMPARISON: None. FINDINGS: Three views of the pelvis and right hip demonstrate no fracture. There is degenerative axial and superior narrowing of the right hip joint and degenerative axial narrowing of the left hip joint. There is some flattening of the right femoral head with osteophytic spurring about the right acetabulum and right femoral head. Degenerative change involving the visualized lower lumbar spine. THIS IS AN ELECTRONICALLY VERIFIED FINAL REPORT 08/19/2024 8:06 PM - Electronically signed by Barney Torres M.D. KT: JILLIAN Report ID: [id number] Reading Location: [id number] IMPRESSION: Degenerative change involving both hips, right greater than left. No evidence of fracture. Justin Boykin MD IMG DIAGNOSTIC ORDERABLES Final Result * XR CHEST SINGLE VIEW PORTABLE (08/19/2024 7:44 PM CDT) Anatomical Region Laterality Modality Chest N/A Computed Radiogr aphy 08/19/2024 8:07 PM CDT Impressions 08/19/2024 8:10 PM CDT IMPRESSION: 1. Poor inspiratory result with bibasilar atelectasis. 2. Diffuse bilateral coarse interstitial infiltrates suggesting fibrosis. Narrative 08/19/2024 8:10 PM CDT EXAM DESCRIPTION: XR CHEST SINGLE VIEW PORTABLE REASON FOR STUDY: Preop exam for RT hip surgery. hx of HTN TECHNIQUE: 1 radiographic view(s) of the chest. COMPARISON: 02/12/2013 FINDINGS: LUNGS: Poor inspiratory result and elevation the right hemidiaphragm with atelectatic changes at the lung bases. Diffuse bilateral coarse interstitial infiltrates suggesting fibrosis. No pleural effusion. No pneumothorax. HEART/MEDIASTINUM: Cardiac silhouette normal in size. Mediastinal and hilar contours appear normal. LINES/TUBES: None. BONES: No acute osseous abnormality. THIS IS AN ELECTRONICALLY VERIFIED FINAL REPORT 08/19/2024 8:07 PM - Electronically signed by Barney Torres M.D. KT: JILLIAN Report ID: [id number] Reading Location: [id number] Procedure Note Barney Torres MD - 08/19/2024 EXAM DESCRIPTION: XR CHEST SINGLE VIEW PORTABLE REASON FOR STUDY: Preop exam for RT hip surgery. hx of HTN TECHNIQUE: 1 radiographic view(s) of the chest. COMPARISON: 02/12/2013 FINDINGS: LUNGS: Poor inspiratory result and elevation the right hemidiaphragm with atelectatic changes at the lung bases. Diffuse bilateral coarse interstitial infiltrates suggesting fibrosis. No pleural effusion. No pneumothorax. HEART/MEDIASTINUM: Cardiac silhouette normal in size. Mediastinal and hilar contours appear normal. LINES/TUBES: None. BONES: No acute osseous abnormality. THIS IS AN ELECTRONICALLY VERIFIED FINAL REPORT 08/19/2024 8:07 PM - Electronically signed by Barney Torres M.D. KT: JILLIAN Report ID: [id number] Reading Location: [id number] IMPRESSION: 1. Poor inspiratory result with bibasilar atelectasis. 2. Diffuse bilateral coarse interstitial infiltrates suggesting fibrosis. Justin Boykin MD IMG DIAGNOSTIC ORDERABLES Final Result * ADULT TRANS THORACIC ECHO 2D COMPLT W CONT (08/18/2024 11:20 AM CDT) AV Peak Grad mmHg 15.21 mmHg RESULTING AGENCY Mean Aortic Valve Gradient (MAVG) 8 mmHg RESULTING AGENCY Est PA Sys Press mmHg 24.16 mmHg RESULTING AGENCY LV end pipo diam cm 4.1 cm RESULTING AGENCY LV end sys diam cm 2.8 cm RESULTING AGENCY Aortic Root Diam cm 2.7 cm RESULTING AGENCY LA vol index ml/m2 35 ml/m2 RESULTING AGENCY LVOT Peak Kevin m/sec 0.897 m/sec RESULTING AGENCY AV Peak Kevin m/sec 1.95 m/sec RESULTING AGENCY MV Mean Grad mmHg 3 mmHg RESULTING AGENCY MVA by PHT cm2 4.49 cm2 RESUL TING AGENCY E/A Ratio 0.61 RESULTING AGENCY TR Kevin m/sec 2.3 m/sec RESULTI NG AGENCY E/E' 14.6 RESULTING AGENCY AV Area (VTI) cm2 1.78 cm2 RESULTING AGENCY RV Sys Pressure mmHg 24.16 mmHg RESULTING AGENCY SEPTUM DIASTOLIC CM 1.5 cm RESULTING AGENCY PW DIASTOLIC CM 1.5 cm RESU LTING AGENCY LA VOLUME 64.9 ml RESULTING AGENCY LV EF(estimated)% 63 RESULTING AGENCY Anatomical Region Laterality Modality CARDIO N/A Ultrasound Narrative 08/18/2024 1:41 PM CDT Transthoracic Echocardiography Report (TTE) Patient name DAVID GUILLORY 1940 Patient ID (UP) [id number] Indications: Hypertensive heart disease and Hypertension. Study Date08/18/2024 Technical quality: Adequate Limitation Reason: Lung artifact Type of Study: TTE procedure: Adult Trans Thoracic Echo 2D Complete, Adult Trans Thoracic Echo 2D Complt W Cont. Priority:RoutineBP: 177/73 mmHg Conclusions Summary The left ventricle is normal in size with severe concentric hypertrophy. The systolic function is normal (estimated EF 60-65%). No regional wall motion abnormalities. Grade I diastolic dysfunction. Normal right ventricular cavity size and normal systolic function. Left atrium is borderline enlarged. Calculated left atrial volume index 35 mL/m2. No hemodynamically significant valvular abnormalities. There is no evidence of pulmonary hypertension with estimated PASP 24 mmHg. Findings Mitral Valve The mitral valve is normal. There is no evidence of mitral stenosis. There is no significant mitral regurgitation. Aortic Valve The aortic valve is trileaflet with normal leaflet excursion. There is no evidence of aortic valve stenosis. There is no significant aortic valve insufficiency. Tricuspid Valve The tricuspid valve is normal. There is no evidence of tricuspid stenosis. There is mild tricuspid regurgitation. There is no evidence of pulmonary hypertension with estimated PASP 24 mmHg. Pulmonic Valve The pulmonic valve is not well visualized. There is no evidence of pulmonic stenosis. There is no significant pulmonic valve regurgitation. Left Atrium Left atrium is borderline enlarged. Calculated left atrial volume index 35 mL/m2. Left Ventricle The left ventricle is normal in size with severe concentric hypertrophy. The systolic function is normal (estimated EF 60-65%). No regional wall motion abnormalities. Grade I diastolic dysfunction. Right Atrium The right atrium size is normal. Right Ventricle Normal right ventricular cavity size and normal systolic function. Pericardial Effusion The pericardium is normal. There is no pericardial effusion visualized. Miscellaneous Aortic root is normal in size. The proximal ascending aorta is mildly dilated at 3.2 cm but normal when indexed for BSA at 1.74 cm/m2. Atrial septum appears intact. IVC is normal in size and respiratory response. Aortic arch appears normal. Valves Mitral Valve Area (PHT): 4.49 cm^2 Area (continuity): 2.43 cm^2 Peak E-Wave: 0.77 m/s Mean Velocity: 0.75 m/s Peak A-Wave: 1.26 m/s Mean Gradient: 3 mmHg Peak Gradient: 2.38 mmHg Deceleration Time: 167 msec P1/2t: 49 msec Tissue Doppler E' Velocity: 0.04 m/s E/E':14.6 E/A Ratio: 0.61 E/Lat E': 14.6 E/Med E':19.1 Aortic Valve Area (continuity): 1.78 cm^2 Mean Velocity: 1.31 m/s Area (VTI):1.81 cm^2 Mean Gradient: 8 mmHg Peak Velocity: 1.95 m/s AV VTI: 32.7 cm Peak Gradient: 15.21 mmHg Tricuspid Valve Peak E-Wave: 0.57 m/s Peak Gradient: 1.31 mmHg Estimated RAP: 3 mmHg TR Velocity: 2.30 m/s TR Gradient: 21.16 mmHg Pulmonic Valve Peak Velocity: 1.01 m/s Mean Velocity: 0.77 m/s Peak Gradient: 4.08 mmHg Mean Gradient: 3 mmHg Estimated PASP: 24.16 mmHg LVOT Peak Velocity: 0.89 m/s Mean Velocity: 0.56 m/s Peak Gradient: 3 mmHg Mean Gradient: 2 mmHg LVOT Diameter: 2 cm LVOT VTI: 18.8 cm Stroke Volume: 59 ml Stroke Volume Index: 32.07 ml/m^2 Structures Left Ventricle Diastolic Dimension: 4.1 cm Systolic Dimension: 2.8 cm Septum Diastolic: 1.5 cm Septum Systolic: 1.7 cm PW Diastolic: 1.5 cm PW Systolic: 1.7 cm Diastolic Length: 25.7 cm Systolic Length: 14.9 cm RWT: 0.73 FS: 31.71 % LV EDV: 75.3 ml LV Length: 7 cm LV EDV Index: 41 m^2 LVOT Diameter: 2 cm Right Ventricle RVOT (PLAX) diameter:2.8 cm Tissue Doppler RV S': 15.2 TAPSE: 1.88 cm Left Atrium LA Systolic Pressure: 20.25 mmHg LA Area: 21.7 cm^2 LA Volume: 64.9 ml LA Index: 35ml/m^2 Right Atrium RA Area: 12 cm^2 Great Vessels Aorta Ascending Aorta: 3.2 cm Aorta Root:2.7 cm Ascending Aorta Index:1.74 cm/m^2 Demographics Age 84 Gender Female Race Height 62.99 in. Weight 176.9 lbs. BMI (BSA) 31.34 kg/m^2 (1.84 m^2) Mushroom Farmer Joby Mcbride Room 245 Interpreting Abraham Mathis Referring Physician Jeannette Alamo Procedure Note Nimco Plunkett DO - 08/18/2024 Transthoracic Echocardiography Report (TTE) Patient name DAVID ReyesO[birth year]B. 1940 Patient ID ([facility]) [id number] Indications: Hypertensive heart disease and Hypertension. Study Date08/18/2024 Technical quality: Adequate Limitation Reason: Lung artifact Type of Study: TTE procedure: Adult Trans Thoracic Echo 2D Complete, Adult Trans Thoracic Echo 2D Complt W Cont. Priority:RoutineBP: 177/73 mmHg Conclusions Summary The left ventricle is normal in size with severe concentric hypertrophy. The systolic function is normal (estimated EF 60-65%). No regional wall motion abnormalities. Grade I diastolic dysfunction. Normal right ventricular cavity size and normal systolic function. Left atrium is borderline enlarged. Calculated left atrial volume index 35 mL/m2. No hemodynamically significant valvular abnormalities. There is no evidence of pulmonary hypertension with estimated PASP 24 mmHg. Findings Mitral Valve The mitral valve is normal. There is no evidence of mitral stenosis. There is no significant mitral regurgitation. Aortic Valve The aortic valve is trileaflet with normal leaflet excursion. There is no evidence of aortic valve stenosis. There is no significant aortic valve insufficiency. Tricuspid Valve The tricuspid valve is normal. There is no evidence of tricuspid stenosis. There is mild tricuspid regurgitation. There is no evidence of pulmonary hypertension with estimated PASP 24 mmHg. Pulmonic Valve The pulmonic valve is not well visualized. There is no evidence of pulmonic stenosis. There is no significant pulmonic valve regurgitation. Left Atrium Left atrium is borderline enlarged. Calculated left atrial volume index 35 mL/m2. Left Ventricle The left ventricle is normal in size with severe concentric hypertrophy. The systolic function is normal (estimated EF 60-65%). No regional wall motion abnormalities. Grade I diastolic dysfunction. Right Atrium The right atrium size is normal. Right Ventricle Normal right ventricular cavity size and normal systolic function. Pericardial Effusion The pericardium is normal. There is no pericardial effusion visualized. Miscellaneous Aortic root is normal in size. The proximal ascending aorta is mildly dilated at 3.2 cm but normal when indexed for BSA at 1.74 cm/m2. Atrial septum appears intact. IVC is normal in size and respiratory response. Aortic arch appears normal. Valves Mitral Valve Area (PHT): 4.49 cm^2 Area (continuity): 2.43 cm^2 Peak E-Wave: 0.77 m/s Mean Velocity: 0.75 m/s Peak A-Wave: 1.26 m/s Mean Gradient: 3 mmHg Peak Gradient: 2.38 mmHg Deceleration Time: 167 msec P1/2t: 49 msec Tissue Doppler E' Velocity: 0.04 m/s E/E':14.6 E/A Ratio: 0.61 E/Lat E': 14.6 E/Med E':19.1 Aortic Valve Area (continuity): 1.78 cm^2 Mean Velocity: 1.31 m/s Area (VTI):1.81 cm^2 Mean Gradient: 8 mmHg Peak Velocity: 1.95 m/s AV VTI: 32.7 cm Peak Gradient: 15.21 mmHg Tricuspid Valve Peak E-Wave: 0.57 m/s Peak Gradient: 1.31 mmHg Estimated RAP: 3 mmHg TR Velocity: 2.30 m/s TR Gradient: 21.16 mmHg Pulmonic Valve Peak Velocity: 1.01 m/s Mean Velocity: 0.77 m/s Peak Gradient: 4.08 mmHg Mean Gradient: 3 mmHg Estimated PASP: 24.16 mmHg LVOT Peak Velocity: 0.89 m/s Mean Velocity: 0.56 m/s Peak Gradient: 3 mmHg Mean Gradient: 2 mmHg LVOT Diameter: 2 cm LVOT VTI: 18.8 cm Stroke Volume: 59 ml Stroke Volume Index: 32.07 ml/m^2 Structures Left Ventricle Diastolic Dimension: 4.1 cm Systolic Dimension: 2.8 cm Septum Diastolic: 1.5 cm Septum Systolic: 1.7 cm PW Diastolic: 1.5 cm PW Systolic: 1.7 cm Diastolic Length: 25.7 cm Systolic Length: 14.9 cm RWT: 0.73 FS: 31.71 % LV EDV: 75.3 ml LV Length: 7 cm LV EDV Index: 41 m^2 LVOT Diameter: 2 cm Right Ventricle RVOT (PLAX) diameter:2.8 cm Tissue Doppler RV S': 15.2 TAPSE: 1.88 cm Left Atrium LA Systolic Pressure: 20.25 mmHg LA Area: 21.7 cm^2 LA Volume: 64.9 ml LA Index: 35ml/m^2 Right Atrium RA Area: 12 cm^2 Great Vessels Aorta Ascending Aorta: 3.2 cm Aorta Root:2.7 cm Ascending Aorta Index:1.74 cm/m^2 Demographics Age 84 Gender Female Race Height 62.99 in. Weight 176.9 lbs. 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 Narrative 08/18/2024 10:03 AM CDT EXAM DESCRIPTION: US PELVIS LIMITED-NON OB REASON FOR STUDY: Assessment of fluid in right hip for possible arthrocentesis versus surgical intervention TECHNIQUE: A Dynamic assessment was performed of the right hip by the development educator, with selected grayscale and color Doppler images acquired and recorded in PACS. COMPARISON: CT right hip 08/17/2024. FINDINGS: SKIN AND SUBCUTANEOUS TISSUES: No masses. No fluid collections. No edema. No foreign bodies. DEEP SOFT TISSUES/MUSCLES: No masses. No fluid collections. No edema. OTHER: fibre technologist did note limited acoustic window due to patient body habitus. THIS IS AN ELECTRONICALLY VERIFIED FINAL REPORT 08/18/2024 10:01 AM - Electronically signed by Lucyann Brittneyanastasiya SAENZ: LETTY Report ID: [id number] Reading Location: [id number] Procedure Note Dayna Lugo MD - 08/18/2024 EXAM DESCRIPTION: US PELVIS LIMITED-NON OB REASON FOR STUDY: Assessment of fluid in right hip for possible arthrocentesis versus surgical intervention TECHNIQUE: A Dynamic assessment was performed of the right hip by the development educator, with selected grayscale and color Doppler images acquired and recorded in PACS. COMPARISON: CT right hip 08/17/2024. FINDINGS: SKIN AND SUBCUTANEOUS TISSUES: No masses. No fluid collections. No edema. No foreign bodies. DEEP SOFT TISSUES/MUSCLES: No masses. No fluid collections. No edema. OTHER: fibre technologist did note limited acoustic window due to patient body habitus. THIS IS AN ELECTRONICALLY VERIFIED FINAL REPORT 08/18/2024 10:01 AM - Electronically signed by Yash Lugo M.D. LC: LETTY Report ID: [id number] Reading Location: [id number] IMPRESSION: No soft tissue mass, fluid collection, or foreign body evident on limited ultrasound. us Charlette Gomez MD [facility] [place] US ORDERABLES Final Resul t * Lactic Acid (Lactate) (08/18/2024 3:59 AM CDT) Only the most recent of2 resultswithin the time period is included. LACTIC ACID 0.7 0.7 - 2.0 mmol/L 08/18/2024 5:20 AM CDT [facility] Comment: Specimen is hemolyzed. In vitro hemolysis could affect results. Clinical correlation advised. Blood Venipuncture / Unknown 08/18/2024 3:59 AM CDT 08/18/2024 5:01 AM CDT us Charlette Gomez MD CHEMISTRY ORDERABLES Final Re sult Performing Organization Address City/[facility]/ZIP Co de Phone Number [facility] [address] [place] [address] * Culture, Blood (08/17/2024 3:02 PM CDT) Only the most recent of2 resultswithin the time period is included. CULTURE RESULTS NO GROWTH WITHIN 5 DAYS, FINAL RESULT 08/22/2024 4:00 PM CDT [facility] Culture (Peripheral Vein) Venipuncture / Unknown 08/17/2024 3:02 PM CDT 08/17/2024 3:09 PM CDT us Charlette Gomez MD MICROBIOLOGY - GENERAL ORDERA BLES Final Result Performing Organization Address [facility] Co de Phone Number [facility] [address] [place] [address], [place] * CT RIGHT HIP WO CONTRAST (08/17/2024 12:51 PM CDT) Anatomical Region Laterality Modality LOWER EXTREMITY Right Computed Tomogra phy 08/17/2024 1:56 PM CDT Impressions 08/17/2024 1:58 PM CDT IMPRESSION: 1. No acute fracture or dislocation. 2. Severe degenerative changes of the right hip joint with numerous intra-articular bodies and joint effusion. Findings may represent intra-articular bodies; however PVNS is a consideration. 3. Additional findings; as detailed. Narrative 08/17/2024 1:58 PM CDT EXAM DESCRIPTION: CT RIGHT HIP WO CONTRAST REASON FOR STUDY: Fall yesterday, c/o left hip pain. TECHNIQUE: CT scan of the right hip was performed without intravenous contrast. Reconstructed coronal and sagittal MPR images reviewed. Automated exposure control was used as a dose optimization technique for this examination. COMPARISON: Radiographs of the right femur dated 08/17/2024. FINDINGS: BONES/JOINTS: No acute fracture or dislocation. Severe osteoarthritic changes of the right hip joint with complete joint space loss superior and laterally with osseous remodeling of the acetabulum femoral head and osteophyte formation. Small ossific bodies are seen about the joint space. A right hip joint effusion is noted. Moderate to advanced multilevel spondylitic changes of the lower lumbar spine. Moderate osteoarthritic changes of the bilateral sacroiliac joints. The pubic symphysis joint spaces intact. SOFT TISSUES: No focal soft tissue abnormality visualized. OTHER: Aortoiliac atherosclerosis is noted. no other finding. THIS IS AN ELECTRONICALLY VERIFIED FINAL REPORT 08/17/2024 1:56 PM - Electronically signed by Bear OCASIO: NINFA Report ID: [id number] Reading Location: [id number] Procedure Note Bear Torrez, DO - 08/17/2024 EXAM DESCRIPTION: CT RIGHT HIP WO CONTRAST REASON FOR STUDY: Fall yesterday, c/o left hip pain. TECHNIQUE: CT scan of the right hip was performed without intravenous contrast. Reconstructed coronal and sagittal MPR images reviewed. Automated exposure control was used as a dose optimization technique for this examination. COMPARISON: Radiographs of the right femur dated 08/17/2024. FINDINGS: BONES/JOINTS: No acute fracture or dislocation. Severe osteoarthritic changes of the right hip joint with complete joint space loss superior and laterally with osseous remodeling of the acetabulum femoral head and osteophyte formation. Small ossific bodies are seen about the joint space. A right hip joint effusion is noted. Moderate to advanced multilevel spondylitic changes of the lower lumbar spine. Moderate osteoarthritic changes of the bilateral sacroiliac joints. The pubic symphysis joint spaces intact. SOFT TISSUES: No focal soft tissue abnormality visualized. OTHER: Aortoiliac atherosclerosis is noted. no other finding. THIS IS AN ELECTRONICALLY VERIFIED FINAL REPORT 08/17/2024 1:56 PM - Electronically signed by Bear OCASIO: NINFA Report ID: [id number] Reading Location: [id number] IMPRESSION: 1. No acute fracture or dislocation. 2. Severe degenerative changes of the right hip joint with numerous intra-articular bodies and joint effusion. Findings may represent intra-articular bodies; however PVNS is a consideration. 3. Additional findings; as detailed. Vandana Bernal MD IM CT ORDERABLES Final Resul t * (ABNORMAL) URINALYSIS REFLEX IF INDICATED BY ABNORMAL RESULTS (08/17/2024 10:43 AM CDT) SPECIFIC GRAVITY 1.010 1.003 - 1.030 08/17/2024 11:39 AM CDT [facility] URINE PH 6.5 5.0 - 9.0 08/17/2024 11:39 AM CDT [facility] WBC ESTERASE Negative Negative 08/17/2024 11:39 AM CDT [facility] NITRITE Negative Negative 08/17/2024 11:39 AM CDT [facility] PROTEIN, RANDOM URINE 500 mg/dL(A) Negative 08/17/2024 11:39 AM CDT [facility] URINE GLUCOSE, QUAL Negative Negative 08/17/2024 11:39 AM CDT [facility] URINE KETONES Negative Negative 08/17/2024 11:39 AM CDT [facility] UROBILINOGEN Normal Normal mg/dL 08/17/2024 11:39 AM CDT [facility] URINE BLOOD 50 /uL(A) Negative memo/ul 08/17/2024 11:39 AM CDT [facility] URINALYSIS COLOR Yellow 08/17/2024 11:39 AM CDT [facility] URINALYSIS CLARITY Clear 08/17/2024 11:39 AM CDT [facility] WBC (Urine) 6-10(A) Negative, 0-5 /hpf 08/17/2024 11:39 AM CDT [facility] URINE RBC'S 11-20(A) Negative, 0-2 /hpf 08/17/2024 11:39 AM CDT [facility] EPITHELIAL CELLS Occasional /lpf 08/17/2024 11:39 AM CDT [facility] BACTERIA, URINE Few(A) Negative /hpf 08/17/2024 11:39 AM CDT [facility] Urine URINE SPECIMEN OBTAINED BY CLEAN CATCH PROCEDURE / Unknown Non-Phlebotomy Collection / Unknown 08/17/2024 10:43 AM CDT 08/17/2024 10:57 AM CDT Vandana Bernal MD URINE ORDERABLES Final Result Performing Organization Address City/[facility] Co de Phone Number [facility] [address] [place] [address] * TROPONIN I, HIGH SENSITIVITY (HSTRP) (08/17/2024 8:31 AM CDT) Only the most recent of2 resultswithin the time period is included. TROPONIN I, HIGH SENSITIVITY- LUA 12 <=14 ng/L 08/17/2024 9:08 AM CDT [facility] Comment: High-sensitivity troponin I results are reported in ng/L making the result appear to be 1,000 times higher than the contemporary troponin I value which is reported in ng/ml. Results from Lua. Blood Venipuncture / Unknown 08/17/2024 8:31 AM CDT 08/17/2024 8:37 AM CDT Vandana Bernal MD CHEMISTRY ORDERABLES Final Re sult Performing Organization Address City/[facility]/ZIP Co de Phone Number [facility] [address] [place] [address] * Creatine Kinase (CK) Total (08/17/2024 8:31 AM CDT) CK (CPK) 65 29 - 168 U/L 08/17/2024 3:38 PM CDT [facility] Blood Venipuncture / Unknown 08/17/2024 8:31 AM CDT 08/17/2024 8:37 AM CDT Charlette Gomez MD CHEMISTRY ORDERABLES Final Re sult [facility] [address] [place] [address] * (ABNORMAL) C-Reactive Protein Qnt (Crp) (08/17/2024 8:31 AM CDT) C-REACTIVE PROTEIN 1.80(H) <0.50 mg/dL 08/17/2024 9:37 AM CDT [facility] Blood Venipuncture / Unknown 08/17/2024 8:31 AM CDT 08/17/2024 8:37 AM CDT us Vandana Bernal MD CHEMISTRY ORDERABLES Final Re sult Performing Organization Address City/[facility] Co de Phone Number [facility] [address] [place] [address] * XR FEMUR MIN 2V RIGHT (08/17/2024 8:01 AM CDT) Anatomical Region Laterality Modality LOWER EXTREMITY, Femur Right Digital R adiography 08/17/2024 8:34 AM CDT Impressions 08/17/2024 8:37 AM CDT IMPRESSION: 1. No acute fracture identified. 2. Right total knee arthroplasty projecting in expected alignment. Small right knee joint effusion. 3. Moderate to severe right hip osteoarthritis. Narrative 08/17/2024 8:37 AM CDT EXAM DESCRIPTION: XR FEMUR MIN 2V RIGHT; XR KNEE 1 OR 2 VIEWS RIGHT REASON FOR STUDY: Fall 1 day ago, knee pain and thigh pain. Hx right knee arthroplasty TECHNIQUE: AP and lateral views of the right knee and AP and lateral views of the right femur. COMPARISON: None available FINDINGS: There is moderate to severe right hip osteoarthritis. Degenerative changes are seen at the pubic symphysis. Athero sclerotic calcifications are present. No gross malalignment at the hip. There is a right total knee arthroplasty projecting in expected alignment. No acute fracture or aggressive bone lesion is seen.. Small right knee joint effusion is present. Superior patellar secondary mechanism enthesophyte is noted. THIS IS AN ELECTRONICALLY VERIFIED FINAL REPORT 08/17/2024 8:34 AM - Electronically signed by Geremias Schneider M.D. MZ: MZ Report ID: [id number] Reading Location: [id number] Procedure Note Geremias Schneider MD - 08/17/2024 EXAM DESCRIPTION: XR FEMUR MIN 2V RIGHT; XR KNEE 1 OR 2 VIEWS RIGHT REASON FOR STUDY: Fall 1 day ago, knee pain and thigh pain. Hx right knee arthroplasty TECHNIQUE: AP and lateral views of the right knee and AP and lateral views of the right femur. COMPARISON: None available FINDINGS: There is moderate to severe right hip osteoarthritis. Degenerative changes are seen at the pubic symphysis. Athero sclerotic calcifications are present. No gross malalignment at the hip. There is a right total knee arthroplasty projecting in expected alignment. No acute fracture or aggressive bone lesion is seen.. Small right knee joint effusion is present. Superior patellar secondary mechanism enthesophyte is noted. THIS IS AN ELECTRONICALLY VERIFIED FINAL REPORT 08/17/2024 8:34 AM - Electronically signed by Geremias Schneider M.D. MZ: MZ Report ID: [id number] Reading Location: [id number] IMPRESSION: 1. No acute fracture identified. 2. Right total knee arthroplasty projecting in expected alignment. Small right knee joint effusion. 3. Moderate to severe right hip osteoarthritis. Vandana Bernal MD IMG DIAGNOSTIC ORDERABLES Fin al Result * XR KNEE 1 OR 2 VIEWS RIGHT (08/17/2024 8:01 AM CDT) Anatomical Region Laterality Modality LOWER EXTREMITY, knee Right Digital Ra diography 08/17/2024 8:34 AM CDT Impressions 08/17/2024 8:37 AM CDT IMPRESSION: 1. No acute fracture identified. 2. Right total knee arthroplasty projecting in expected alignment. Small right knee joint effusion. 3. Moderate to severe right hip osteoarthritis. Narrative 08/17/2024 8:37 AM CDT EXAM DESCRIPTION: XR FEMUR MIN 2V RIGHT; XR KNEE 1 OR 2 VIEWS RIGHT REASON FOR STUDY: Fall 1 day ago, knee pain and thigh pain. Hx right knee arthroplasty TECHNIQUE: AP and lateral views of the right knee and AP and lateral views of the right femur. COMPARISON: None available FINDINGS: There is moderate to severe right hip osteoarthritis. Degenerative changes are seen at the pubic symphysis. Athero sclerotic calcifications are present. No gross malalignment at the hip. There is a right total knee arthroplasty projecting in expected alignment. No acute fracture or aggressive bone lesion is seen.. Small right knee joint effusion is present. Superior patellar secondary mechanism enthesophyte is noted. THIS IS AN ELECTRONICALLY VERIFIED FINAL REPORT 08/17/2024 8:34 AM - Electronically signed by Geremias Schneider M.D. MZ: YO Report ID: [id number] Reading Location: [place] [id number] Procedure Note Geremias Schneider MD - 08/17/2024 EXAM DESCRIPTION: XR FEMUR MIN 2V RIGHT; XR KNEE 1 OR 2 VIEWS RIGHT REASON FOR STUDY: Fall 1 day ago, knee pain and thigh pain. Hx right knee arthroplasty TECHNIQUE: AP and lateral views of the right knee and AP and lateral views of the right femur. COMPARISON: None available FINDINGS: There is moderate to severe right hip osteoarthritis. Degenerative changes are seen at the pubic symphysis. Athero sclerotic calcifications are present. No gross malalignment at the hip. There is a right total knee arthroplasty projecting in expected alignment. No acute fracture or aggressive bone lesion is seen.. Small right knee joint effusion is present. Superior patellar secondary mechanism enthesophyte is noted. THIS IS AN ELECTRONICALLY VERIFIED FINAL REPORT 08/17/2024 8:34 AM - Electronically signed by Geremias Schneider M.D. MZ: YO Report ID: [id number] Reading Location: [id number] IMPRESSION: 1. No acute fracture identified. 2. Right total knee arthroplasty projecting in expected alignment. Small right knee joint effusion. 3. Moderate to severe right hip osteoarthritis. Vandana Bernal MD IMG DIAGNOSTIC ORDERABLES Fin al Result * Hemoglobin A1C w/ Estimated Glucose (08/17/2024 7:17 AM CDT) HGB-A1C 6.0 4.0 - 6.0 % 08/17/2024 3:37 PM CDT [facility] Est Average Glucose 125.5 mg/dL 08/17/2024 3:37 PM CDT [facility] Blood Venipuncture / Unknown 08/17/2024 7:17 AM CDT 08/17/2024 7:30 AM CDT Narrative [facility] - 08/17/2024 3:37 PM CDT HEMOGLOBIN A1C: DIABETIC PATIENTS: WELL-CONTROLLED: 6.2 - 7.0 INTERMEDIATE WELL-CONTROLLED: 7.0 - 9.0 POORLY-CONTROLLED: >9.0 Specimens containing greater than 5% of Hemoglobin F may result in lower than expected % HbA1C results. Charlette Gomez MD CHEMISTRY ORDERABLES Final Re sult [facility] [place] [address] * (ABNORMAL) Sed Rate (Esr) [id number] (08/17/2024 7:17 AM CDT) ESR (SED RATE, ERYTHROCYTE SEDIMENTATION RATE) 44(H) <30 mm/h 08/17/2024 8:53 AM CDT [facility] Comment: Patients presenting with increased level of fibrinogen, gamma globulins, or abnormally shaped RBCs could affect the results for the erythrocyte sedimentation rate (ESR). Results should be clinically correlated. Blood Venipuncture / Unknown 08/17/2024 7:17 AM CDT 08/17/2024 7:30 AM CDT us Vandana Bernal MD HEMATOLOGY ORDERABLES Final R esult [facility] [address] [place] [address] * (ABNORMAL) Comprehensive Metabolic Panel (Cmp) [id number] (08/17/2024 7:17 AM CDT) SODIUM 140 136 - 145 mmol/L 08/17/2024 7:53 AM CDT [facility] POTASSIUM 4.4 3.5 - 5.1 mmol/L 08/17/2024 7:53 AM CDT [facility] CHLORIDE 107 98 - 107 mmol/L 08/17/2024 7:53 AM CDT [facility] CO2, VENOUS 24 22 - 30 mmol/L 08/17/2024 7:53 AM CDT [facility] ANION GAP 13.4 <18.0 mmol/L 08/17/2024 7:53 AM CDT [facility] GLUCOSE 120(H) 70 - 99 mg/dL 08/17/2024 7:53 AM CDT [facility] BUN 31(H) 10 - 20 mg/dL 08/17/2024 7:53 AM CDT [facility] CREATININE, BLOOD 0.72 0.60 - 1.00 mg/dL 08/17/2024 7:53 AM CDT [facility] BUN/CREATININE RATIO 43(H) 12 - 20 ratio 08/17/2024 7:53 AM CDT [facility] TOTAL PROTEIN 7.2 6.0 - 8.0 g/dL 08/17/2024 7:53 AM CDT [facility] ALBUMIN 4.0 3.5 - 5.0 g/dL 08/17/2024 7:53 AM CDT [facility] A/G RATIO 1.3 1.0 - 2.2 08/17/2024 7:53 AM CDT [facility] CALCIUM 8.5(L) 8.7 - 10.5 mg/dL 08/17/2024 7:53 AM CDT [facility] T BILI 0.4 0.2 - 1.2 mg/dL 08/17/2024 7:53 AM CDT [facility] SGOT (AST) 20 <43 U/L 08/17/2024 7:53 AM CDT [facility] SGPT (ALT) 13 <56 U/L 08/17/2024 7:53 AM CDT [facility] ALKALINE PHOSPHATASE 60 40 - 150 U/L 08/17/2024 7:53 AM CDT [facility] GFR, ESTIMATED >60 >=60 08/17/2024 7:53 AM CDT [facility] Comment: Creatinine Clearance is the preferred criteria for selecting drug dose adjustments in renally impaired patients. The GFR is provided as additional pertinent clinical information. GFR is reported in mL/min/1.73 sq m. Calculation based on the Chronic Kidney Disease Epidemiology Collaboration (CKD- EPI) equation refit without adjustment for race. GFR, EST. >60 >=60 025 7:53 AM CDT [facility] GFR, EST. NONAFRICAN >60 >=60 08/17/2024 7:53 AM CDT [facility] Blood Venipuncture / Unknown 08/17/2024 7:17 AM CDT 08/17/2024 7:30 AM CDT us Vandana Bernal MD CHEMISTRY ORDERABLES Final Re sult [facility] [place] [address] * EKG 12 LEAD (08/17/2024 6:53 AM CDT) Ventricular Rate 88 BPM EXTERNAL EKG Atrial Rate 88 BPM EXTERNAL EKG P-R Interval 146 ms EXTERNAL EKG QRS Duration 84 ms EXTERNAL EKG Q-T Duration 356 ms EXTERNAL EKG QTC CALCULATION 430 ms EXTERNAL EKG P [place] 40 degrees EXTERNAL EKG R [place] -21 degrees EXTERNAL EKG T [place] 34 degrees EXTERNAL EKG 08/17/2024 6:53 AM CDT Impressions EXTERNAL EKG - 08/18/2024 10:31 PM CDT Sinus rhythm with fusion complexes Otherwise normal ECG No previous ECGs available Confirmed by Nimco Plunkett ([id number]) on 08/18/2024 10:30:58 PM Narrative Procedure Note Nimco Plunkett DO - 08/18/2024 IMPRESSION: Sinus rhythm with fusion complexes Otherwise normal ECG No previous ECGs available Confirmed by Nimco Plunkett ([id number]) on 08/18/2024 10:30:58 PM us Vandana Bernal MD IMG ECG ORDERABLES Final Resu lt EXTERNAL EKG * Critical Care (08/17/2024 6:48 AM CDT) Narrative Vandana Bernal MD - 08/17/2024 6:48 AM CDT Vandana Bernal MD 08/17/2024 5:28 PM Critical Care Performed by: Vandana Bernal MD Authorized by: Vandana Bernal MD Critical care provider statement: Critical care time (minutes): 35 Critical care time was exclusive of: Separately billable procedures and treating other patients Critical care was necessary to treat or prevent imminent or life-threatening deterioration of the following conditions: severe hypertension. Critical care was time spent personally by me on the following activities: Development of treatment plan with patient or surrogate, discussions with consultants, evaluation of patient's response to treatment, examination of patient, ordering and performing treatments and interventions, ordering and review of laboratory studies, ordering and review of radiographic studies, pulse oximetry and re-evaluation of patient's condition Care discussed with: admitting provider Comments: Multiple doses of oral and IV antihypertensive for severe hypertension us Vandana Bernal MD PROCEDURE/MINOR SURGICAL ORDE RABLES Final Result * EKG SCAN (08/17/2024 12:00 AM CDT) 08/17/2024 us Provider Scan IMG ECG ORDERABLES Final Result RESULTING AGENCY from Last 3 Months Additional Health Concerns Infection Onset Date Last Indicated Other Comment:Possible Shingles 08/25/2024 08/25/2024 Insurance MEDICARE C [employer] Advance Directives * Full Code (Latest Code Status on File) Date Activated Date Inactivated Comments 08/17/2024 3:33 PM CPR-Full Treat ment: FULL ARREST: Attempt Resuscitation/CPR wit intubation and mechanical ventilation. PRE-ARREST: Use entire range of life support measures to stabilize the patient. Care Teams Blood Bank Calendar Control Clerk Relationship Specialty Start Date End Date Isaías Peoples MD [address] , [address] [place] [address] PCP - General Family Medicine 08/17/24
--- OUTSIDE RECORDS SUMMARY | 2024-11-04 13:04 | XMS_ITS | Encounter Summary ---
Author Organization [facility] Healthcare Address [address] [place] [address] Care Team Providers Care Machine Programmer Name Role Phone Isaías Peoples MD Primary Care Provi kori Thad Fuentes MD Unavailable [phone] Scarlett Gibbons RN Unavailable [phone] Reason for Visit * Reason Onset Date Comments Med Refill 10/30/2024 Encounter Details Date Type Department Care Team (Late st Contact Info) Description 10/30/2024 Telephone [facility] Medical Group Primary Care at [address] [place] [address] Isaías Peoples MD [address] [place] [address] [address] [place] [address] Med Refill Social History Tobacco Use Types Packs/Day Years [...] often do you attend chur ch or mormon services? Never 09/30/2024 Do you belong to any clubs o r organizations such as yarsani groups, unions, fraternal or athletic groups, or [...] any time in the past 12 m [facility], were you homeless or living in a senior care (including now)? No 09/30/2024 Social Connection and Isolation Panel Answer Date Recorded In a typical week, how many times do you talk on the phone with family, friends, or neighbors? More than three times a week 10/28/2024 How often do you get togethe r with friends or relatives? More than three times a week 10/28/2024 How often do you attend chur ch or mormon services? Never 10/28/2024 Do you belong to any clubs o r organizations such as yarsani groups, unions, fraternal or athletic groups, or [...] any time in the past 12 m [facility], were you homeless or living in a senior care (including now)? No 10/28/2024 [facility] Utilities Answer Date Recorded In the past 12 months has th e [employer], gas, oil, or water [employer] threatened to shut off services in your home? No 10/28/2024 Personal Safety Answer Date Recorded Have you ever been in or are you currently in a harmful physical or emotional relationship or is someone making you feel afraid or unsafe? 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 Ashley (HIPAA) stated that the above medication is causing constipation requesting a another form of iron tablet with stool softener If needed, Pharmacy(s) medication(s) should be sent to: on file Additional Comments: Please call back as soon as possible Does message need to be routed? Yes-Action Needed documented in this encounter Plan of Treatment Not on file documented as of this encounter Goals Goal Patient Goal Type Associated Problems Recent Progress Patient-Stated? 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
--- OUTSIDE RECORDS SUMMARY | 2024-11-04 13:04 | XMS_ITS | Clinical Summary ---
Author Organization [facility] Address [address] [place] [address] Care Team Providers Care Tube Heater Name Role Phone Isaías Peoples MD Primary Care Provi kori Thad Fuentes MD Unavailable [phone] Shai, Scarlett White RN Unavailable [phone] Allergies Active Allergy Reactions Criticality Noted Date Comments Cefazolin Rash Medium 08/21/2024 Cephalexin Hives,Rash Medium 04/06/2008 Fentanyl Rash Medium 08/21/2024 Morphine Itching,Rash Medium 08/17/2024 Penicillins Hives Medium Sulfa (Sulfonamide Antibiotics) Hives Medium Tramadol Other (See comments) 09/29/2024 confusion Medications polyethylene glycol (MIRALAX) 17 gram/dose powderIndications: constipation take (17G) by oral route every day mixed with 8 oz. water, juice, soda, coffee or tea 0 0 12/10/19 14 Active acetaminophen (TYLENOL) 500 mg tabletIndications: Pain Take 2 tablets (1,000 mg total) by mouth every 6 (six) hours as needed for pain Active lisinopriL (PRINIVIL,ZESTRIL) 5 mg tabletIndications: hypertension Take 1 tablet (5 mg total) by mouth daily 90 tablet 4 09/21/[address] (CYMBALTA) 30 mg capsuleIndications :Anxiety with Depression Take 1 capsule (30 mg total) by mouth daily 30 capsule 11 04/17/19 25 026 Active ezetimibe (ZETIA) 10 mg tabletIndications: hyperlipidemia TAKE 1 TABLET (10 MG TOTAL) BY MOUTH DAILY FOR HIGH CHOLESTEROL 90 tablet 1 07/15/19 25 026 Active chlorhexidine (HIBICLENS) 4 % external liquidIndications: Skin Disinfection Apply topically daily as needed for wound care Wash body the night before surgery and the morning of surgery Active hydrocortisone 1 % cream Apply topically as needed for rash Active omeprazole (PriLOSEC) 40 mg capsule Take 1 capsule (40 mg total) by mouth daily Active nut.tx.gluc.intol, lac-free,soy liquid Take 1 each by mouth 2 (two) times a day Glucerna Active ascorbic acid (VITAMIN C) 500 mg tablet,chewableInd ications:Vitamin deficiency prevention Take 1 tablet/chew tab (500 mg total) by mouth daily 30 tablet/chew tab 10/01/19 25 Active aspirin 81 mg enteric coated tabletIndications: Deep Vein Thrombosis Prevention Take 1 tablet (81 mg total) by mouth 2 (two) times a day 84 tablet 10/01/19 25 026 Active celecoxib (CeleBREX) 200 mg capsuleIndications :Pain Take 1 capsule (200 mg total) by mouth 2 (two) times a day 84 capsule 10/01/19 25 Active Additional Information Patient not taking.Reported on 10/28/2024 ferrous sulfate 325 mg (65 mg of elemental iron) tabletIndications: Iron Deficiency Anemia,Anemia prevention Take 1 tablet (325 mg total) by mouth daily with breakfast 30 tablet 10/01/19 25 026 Active ondansetron ODT (ZOFRAN-ODT) 4 mg disintegrating tabletIndications: nausea and vomiting Take 1 tablet (4 mg total) by mouth every 6 (six) hours as needed for nausea or vomiting 20 tablet 2 10/01/19 25 Active senna-docusate (PERICOLACE) 8.6-50 mgIndications:cons tipation Take 2 tablets by mouth 2 (two) times a day 60 tablet 2 10/01/19 25 Active rosuvastatin (CRESTOR) 40 mg tablet Take 1 tablet (40 mg total) by mouth daily 30 tablet 10/02/19 25 026 Active cholecalciferol 25 mcg (1,000 unit) tablet Take 1 unit every day by oral route. Active Active Problems Problem Noted Date Diagnosed Date S/P total right hip arthroplasty 09/29/2024 Preop general physical exam 09/19/2024 Avascular necrosis of hip, right 09/18/2024 Drug rash 08/22/2024 Avascular necrosis of bone of hip, right 025 Primary osteoarthritis of right hip 08/21/2024 Weakness 08/17/2024 Loss of balance 06/16/2024 Assessment & Plan (06/16/2024 4:24 PM CDT): Orders: Ambulatory referral to Home Health; Future Trigger middle finger of right hand 06/16/2024 Assessment & Plan (06/16/2024 4:24 PM CDT): Orders: Ambulatory referral to Plastic Surgery; Future Right shoulder pain 04/17/2024 Hypotension due to medication 04/17/2024 Encounter for Medicare annual wellness exam 12/27 Assessment & Plan (01/09/2024 1:56 PM LEAD BURNER): Visit preventive in nature. We reviewed medications, chronic conditions, risk factors, lifestyle recommendations. Reviewed immunization recommendations. Follow-up in 6 months for chronic conditions and 1 year for annual wellness. Recurrent UTI 10/03/2023 Assessment & Plan (10/03/2023 1:05 PM CDT): Symptomatically improved. Will recheck urinalysis next week to ensure resolution. Make sure to push p.o. water intake. Iron deficiency 10/03/2023 Assessment & Plan (10/03/2023 1:06 PM CDT): Compliant with supplement. Will check iron panel and plan accordingly. Chronic constipation 04/05/2023 Assessment & Plan (07/19/2023 5:45 PM CDT): Patient is doing well with MiraLax 17 g daily. I think she can just continue on this and can increase the MiraLax if needed. Assessment & Plan (04/05/2023 10:10 PM LEAD BURNER): Encouraged patient to decrease MiraLax to one capful/17 g daily along with use of magnesium supplement and hydration with water along with physical activity Mild episode of recurrent major depressive disor kori 09/02/2022 Assessment & Plan (01/09/2024 1:58 PM LEAD BURNER): Stable on duloxetine. No changes. Will continue to monitor. Assessment & Plan (04/05/2023 10:09 PM LEAD BURNER): Emotionally appears better on duloxetine continue for now tolerating well Assessment & Plan (02/28/2023 3:13 PM LEAD BURNER): Daughters both agree with increasing duloxetine to 60 mg a day we discussed briefly counseling although would probably be very difficult due to her language challenges they agree they are also aware that there side effects with any medication especially anxiety depression medications they will try dosing her in the morning to help prevent a.m. confusion Assessment & Plan (01/23/2023 8:07 PM LEAD BURNER): Start duloxetine low-dose potential side effects discussed consider counseling follow up closely in 5 weeks or sooner if necessary recommend patient consider moving to assisted living center to decrease isolation and loneliness at home Assessment & Plan (10/01/2022 3:19 PM CDT): Improving. Continue mirtazapine Assessment & Plan (09/02/2022 10:49 PM CDT): Not controlled. Decrease buspirone to once a day for 3 days then discontinue. Start mirtazapine 7.5 mg at bedtime. Follow-up in 4 weeks or sooner if needed. Notify me if symptoms worsen or if any thoughts of wanting to hurt self or others go to ER. Gait disturbance 08/21/2022 Assessment & Plan (06/16/2024 4:24 PM CDT): Orders: Ambulatory referral to Home Health; Future Assessment & Plan (01/23/2023 8:08 PM LEAD BURNER): Home health physical therapy ordered for evaluation treatment due to high fall risk Assessment & Plan (09/02/2022 10:50 PM CDT): Home healthcare ordered for evaluation and treatment. Schedule head CT. Chronic cough 05/01/2021 Assessment & Plan (01/23/2023 8:08 PM LEAD BURNER): Chest x-ray today per my view shows decreased lung volumes and underpenetration? Will await official report from Radiology and recommend cough medicine as needed offered referral to software applications specialist for ongoing cough declined at this time per patient and daughter will plan to re-evaluate in 5 weeks Assessment & Plan (05/01/2021 9:06 AM LEAD BURNER): Patient has chronic cough for years. Recent chest x-ray was abnormal with the possible pneumonia or concerns for bronchiectasis. Will schedule CT of the chest and likely will refer the patient for pulmonary evaluation after the CT if needed. Screening for osteoporosis 12/07/2020 Assessment & Plan (01/04/2023 4:45 PM LEAD BURNER): Recheck bone mineral density test 2025 Encounter for screening mamm ogram for malignant neoplasm of breast 12/07/2020 Assessment & Plan (01/04/2023 4:38 PM LEAD BURNER): Plan mammogram after February 23, 2023 Vitamin D deficiency 12/07/2020 Assessment & Plan (06/16/2024 4:30 PM CDT): Check vitamin-D level with next blood draw. Orders: Vitamin D 25 hydroxy; Future Assessment & Plan (01/09/2024 1:56 PM LEAD BURNER): Compliant with daily vitamin-D supplement. Will check vitamin-D level and plan accordingly. Assessment & Plan (01/04/2023 4:45 PM LEAD BURNER): Continue vitamin-D replacement follow lab Assessment & Plan (01/08/2022 10:24 AM LEAD BURNER): Stable. Continue vitamin-D supplement Assessment & Plan (12/12/2020 5:11 PM CDT): Stable. Continue vitamin-D supplement. Annual physical exam 09/22/2019 Assessment & Plan (01/04/2023 4:30 PM LEAD BURNER): Flu vaccine given today patient declines COVID and RSV vaccines return to the office in 6 months Assessment & Plan (01/08/2022 10:19 AM LEAD BURNER): Recommend bivalent covid vaccine. Other immunizations current. Continue yearly mammogram and well-woman exam. BMD due 2022. Continue routine eye and dental exams. Diet, weight loss. Check fasting labs. Assessment & Plan (12/12/2020 5:08 PM CDT): Immunizations current. Schedule bone density test. Mammogram due after December 21. Continue routine dental exams. Schedule routine eye exam. Continue yearly well- woman exam. Check fasting labs. Encourage weight loss. Assessment & Plan (09/22/2019 7:49 PM CDT): Return to the office in 1 year recommend flu shot this fall and well-woman examination yearly with Dr. Guy Carotid stenosis, asymptomatic, bilateral 2018 Assessment & Plan (01/04/2023 4:32 PM LEAD BURNER): Carotid ultrasound results reviewed with patient and daughter showing significant narrowing continue present aspirin and statin medication increase cholesterol coverage and maintain blood pressure less than 130/80 patient and daughter encouraged to contact Dr. Laughlin for follow-up now Assessment & Plan (09/02/2022 10:46 PM CDT): Colby. Reviewed Dr. Smith's note 05/31/2022. She will follow-up with Dr. Laughlin and have an repeat ultrasound in 6 months. Continue aspirin daily. Assessment & Plan (01/08/2022 10:23 AM LEAD BURNER): Continue low-dose aspirin. Schedule ultrasound Assessment & Plan (12/12/2020 5:09 PM CDT): Continue low-dose aspirin daily. Schedule carotid ultrasound to follow Assessment & Plan (09/22/2019 7:49 PM CDT): Continue present medication recheck ultrasound next year 2020 Assessment & Plan (12/05/2018 3:27 PM CDT): Stable, mild-moderate carotid disease without symptoms. I made no change in her excellent medical regimen today. Her carotid Dopplers today will be reviewed, and further recommendations forthcoming then. Tentatively, I asked her follow up with me annually, or sooner if needed, pending the results of the carotid Dopplers today. I again advised her to diet and exercise regularly. Assessment & Plan (12/03/2018 4:11 PM CDT): Continue present medication follow with Cardiology up appointment for ultrasound follow-up in 2 days Primary insomnia 05/23/2017 Assessment & Plan (01/04/2023 4:43 PM LEAD BURNER): Encourage good night's sleep habit. Stop mirtazapine as likely not helpful with sleep or mood dtr and pt agree Assessment & Plan (10/01/2022 3:19 PM CDT): Improving. Continue mirtazapine. Good night's sleep hygiene. Assessment & Plan (09/02/2022 10:50 PM CDT): Not controlled. Stop trazodone. Will try mirtazapine 7.5 mg at bedtime. Good night's sleep hygiene. Follow-up in 4 weeks or sooner if needed. Assessment & Plan (01/08/2022 10:24 AM LEAD BURNER): Not controlled. Will try trazodone 50 mg at bedtime as needed for insomnia. Good night's sleep hygiene. Assessment & Plan (12/12/2020 5:10 PM CDT): Not well controlled. Increase melatonin to 10 mg at HS. Encourage good night's sleep hygiene. Assessment & Plan (09/22/2019 7:52 PM CDT): Encouraged good night's sleep habits decreased nocturia change sleeping hours to earlier to bed earlier to rise in the a.m. Assessment & Plan (12/03/2018 4:13 PM CDT): Recommend good night's sleep habits avoid [id number] sleeping aids handout provided on habits and reviewed with patient Assessment & Plan (12/18/2017 11:32 PM CDT): Encourage melatonin 5-10 mg at bedtime stop alcohol use treat anxiety with buspirone Assessment & Plan (05/23/2017 1:24 PM CDT): Recommend good night's sleep habits handout reviewed with patient and daughter also recommend adjusting sleep hours to 10 or 11 o'clock at night for bedtime and wake up at 6 or 7 in the morning avoid late a.m. sleeping melatonin 5-10 mg at bedtime encouraged for sleep aid patient appears to be sleeping better also when no fluids late in the evening to avoid frequent nocturia Primary osteoarthritis involving multiple joints 10/02/2016 Assessment & Plan (01/04/2023 4:44 PM LEAD BURNER): Tylenol topical heat stretching exercises weight control encouraged Assessment & Plan (09/22/2019 7:52 PM CDT): Tylenol topical heat stretching exercises weight control encouraged Assessment & Plan (12/03/2018 4:13 PM CDT): Continue Tylenol topical heat stretching exercises weight control Assessment & Plan (10/02/2016 11:57 AM CDT): Encourage Tylenol topical heat stretching exercises weight control Atopic rhinitis 10/01/2015 Overview (06/03/2016): Allergic rhinitis Assessment & Plan (10/01/2022 3:17 PM CDT): Stable. Patient not tolerating Zyrtec. Recommend Claritin or Xyzal. Recommend Flonase nasal spray 2 sprays in each nostril once a day. Assessment & Plan (09/02/2022 10:45 PM CDT): Stable. Continue current medications. Assessment & Plan (01/08/2022 10:22 AM LEAD BURNER): Stable. Cont current medications. Assessment & Plan (12/12/2020 5:12 PM CDT): Stable. Continue Flonase and Alondra. Assessment & Plan (09/22/2019 7:52 PM CDT): Avoid irritants/allergens continue present medication Anemia 05/18/2015 Overview (06/03/2016): Anemia Assessment & Plan (05/30/2021 9:04 PM CDT): Suspect recent H&H drop may be related to acute illness in February and patient's advanced age. Report obvious blood loss or loss of appetite/weight loss check CBC today Assessment & Plan (05/01/2021 9:08 AM LEAD BURNER): This anemia was a new and mild. MCV was elevated. No sign of GI bleeding. I will check iron level, B12, and folate and follow. Generalized anxiety disorder 04/19/2015 Overview (06/03/2016): TALAT Assessment & Plan (04/17/2024 3:43 PM LEAD BURNER): >>ASSESSMENT AND PLAN FOR ANXIETY WRITTEN ON 09/06/2022 8:59 AM BY JAGUAR VALE NP Uncontrolled. Patient not tolerating buspirone. Taper off buspirone start mirtazapine 7.5 mg at bedtime to help control anxiety/depression Assessment & Plan (04/05/2023 10:08 PM LEAD BURNER): Clinically appears better on duloxetine encourage relaxation techniques Assessment & Plan (02/28/2023 3:12 PM LEAD BURNER): Both daughters agree with increasing duloxetine 60 mg a day I think this will help along with relaxation techniques and exercise they will let me know if patient intolerant medication Assessment & Plan (04/17/2024 3:43 PM LEAD BURNER): >>ASSESSMENT AND PLAN FOR GENERALIZED ANXIETY DISORDER WRITTEN ON 01/23/2023 8:07 PM BY PETER TONG, DO Start duloxetine low-dose potential side effects discussed patient and daughter asked to report any intolerance otherwise will follow up closely in 5 weeks encouraged relaxation techniques and consider counseling referred to check with insurance on behavioral health or mental health services >>ASSESSMENT AND PLAN FOR ANXIETY WRITTEN ON 01/23/2023 8:06 PM BY PETER TONG, DO Start duloxetine potential side effects discussed follow up closely in 5 weeks patient/daughter asked to report intolerance encouraged relaxation techniques Assessment & Plan (04/17/2024 3:43 PM LEAD BURNER): >>ASSESSMENT AND PLAN FOR GENERALIZED ANXIETY DISORDER WRITTEN ON 01/04/2023 4:38 PM BY PETER TONG, DO Encourage relaxation techniques and exercise >>ASSESSMENT AND PLAN FOR ANXIETY WRITTEN ON 01/04/2023 4:30 PM BY PETER TONG, DO Encouraged relaxation techniques and exercise Assessment & Plan (10/01/2022 3:18 PM CDT): Improving. Continue mirtazapine. Assessment & Plan (01/08/2022 10:23 AM LEAD BURNER): Stable. Continue buspirone. Assessment & Plan (12/12/2020 5:10 PM CDT): Not well controlled. Patient declines prescription medication. Will try ashwagandha. If no improvement in symptoms patient will notify office so we can prescribe medication. Assessment & Plan (06/17/2018 9:17 AM CDT): Stable off of medication. Cont to monitor Assessment & Plan (12/18/2017 11:31 PM CDT): Start low-dose buspirone potential side effects discussed continue SSRI stop alcohol use Assessment & Plan (10/02/2016 11:58 AM CDT): Emotionally better off alcohol will increase SSRI to 20 mg a day continue to monitor Diverticulosis of intestine 04/19/2015 Overview (06/03/2016): Diverticulosis Assessment & Plan (01/04/2023 4:37 PM LEAD BURNER): Avoid constipation recommend high-fiber diet Assessment & Plan (05/30/2021 9:05 PM CDT): Avoid constipation with MiraLax daily hydration physical activity report abdominal pain fever Assessment & Plan (09/22/2019 7:50 PM CDT): Avoid constipation recommend high-fiber diet no further colonoscopy is needed Assessment & Plan (12/03/2018 4:12 PM CDT): Avoid constipation recommend high-fiber diet checkcologuard Occlusion of carotid artery 12/09/2013 Overview (05/31/2016): Carotid artery occlusion Assessment & Plan (05/22/2017 1:45 PM CDT): Stable, mild-moderate carotid disease without symptoms. I made no change in her excellent medical regimen today. I asked her to follow up with me annually, or sooner if needed. I again strongly advised her to diet and to exercise regularly. Assessment & Plan (10/02/2016 11:55 AM CDT): Continue present medication and check carotid ultrasound Hypertension, essential 12/09/2013 Overview (06/03/2016): Benign essential hypertension Assessment & Plan (06/16/2024 4:30 PM CDT): Hypertension is controlled on lisinopril 5 mg per day. Orders: Comprehensive metabolic panel; Future Lipid panel; Future Assessment & Plan (04/17/2024 3:42 PM LEAD BURNER): >>ASSESSMENT AND PLAN FOR HYPERTENSION, ESSENTIAL WRITTEN ON 01/09/2024 1:56 PM BY AIDEN ENRIQUEZ NP Normotensive. Continue lisinopril. Continue excellent lifestyle. Will continue to monitor. Assessment & Plan (02/28/2023 3:11 PM LEAD BURNER): Continue present medication home blood pressure cuff appears to be accurate continue blood pressure goal less than 130/80 check BMP today Assessment & Plan (01/23/2023 8:05 PM LEAD BURNER): Blood pressure presently at goal I recommend reporting blood pressure at home consistently greater than 140/90 or systolic blood pressure less than 100 check lab today BMP continue present medication free emotional state which may be contributing Assessment & Plan (01/04/2023 4:31 PM LEAD BURNER): Continue present medication daughter aware blood pressure elevated today she will check blood pressures at home and notify me if consistently greater than 130/80 last 2 visits blood pressure less than 130/80 compliance with medication stressed Assessment & Plan (10/01/2022 3:17 PM CDT): Stable. Continue lisinopril. Assessment & Plan (09/02/2022 10:45 PM CDT): Stable. Continue current medication. Assessment & Plan (01/08/2022 10:22 AM LEAD BURNER): Stable. Continue lisinopril. Assessment & Plan (05/30/2021 9:04 PM CDT): Continue present medication recent chemistry panel reviewed check urinalysis today Assessment & Plan (12/12/2020 5:08 PM CDT): At goal of 130/80 or less. Continue current medication. Encourage weight loss. Assessment & Plan (09/22/2019 7:52 PM CDT): Continue present medication check lab follow numbers Assessment & Plan (12/05/2018 3:27 PM CDT): Systolic pressure is borderline today, but is well controlled in general. Continue same therapy. Continue diet and exercise. Assessment & Plan (12/03/2018 4:11 PM CDT): Continue present medication follow numbers check lab Assessment & Plan (06/17/2018 9:10 AM CDT): Cont current medication. Enc wt loss, exercise. Assessment & Plan (05/23/2017 1:23 PM CDT): Continue present medication follow numbers and lab Assessment & Plan (05/22/2017 1:45 PM CDT): Blood pressure is very well controlled. Continue same therapy. Continue diet and exercise. Gastroesophageal reflux disease 07/12/2013 Overview (05/31/2016): ESOPHAGEAL REFLUX Assessment & Plan (07/19/2023 5:46 PM CDT): Doing well Protonix. Continue Protonix daily. No worrisome signs or symptoms. Assessment & Plan (01/04/2023 4:38 PM LEAD BURNER): Continue anti-reflux measures and H2 carrie therapy as needed Assessment & Plan (09/02/2022 10:46 PM CDT): Stable. Continue famotidine p.r.n.. Follow anti-reflux measures. Weight loss. Assessment & Plan (01/08/2022 10:23 AM LEAD BURNER): Stable. Continue famotidine and anti-reflux measures. Assessment & Plan (12/12/2020 5:09 PM CDT): Stable. Continue famotidine and anti-reflux measures. Encourage weight loss. Assessment & Plan (09/22/2019 7:50 PM CDT): Continue anti-reflux measures and antacid H2 therapy Assessment & Plan (12/03/2018 4:12 PM CDT): Continue anti-reflux measures and H2 therapy patient wants off ranitidine will switch to Pepcid Assessment & Plan (06/17/2018 9:16 AM CDT): Cont zantac bid. Follow anti reflux ms Assessment & Plan (05/23/2017 1:22 PM CDT): Continue anti-reflux measures and antacid therapy/PPI when needed check lab Assessment & Plan (10/02/2016 11:54 AM CDT): Continue anti-reflux measures and PPI therapy Enthesopathy of knee 07/12/2013 Overview (06/01/2016): ENTHESOPATHY OF KNEE NOS Multiple-type hyperlipidemia 07/12/2013 Overview (04/17/2024 3:50 PM LEAD BURNER): MIXED HYPERLIPIDEMIA >>OVERVIEW FOR HYPERLIPIDEMIA WRITTEN ON 06/01/2016 5:03 AM BY CARLOS, PROBLEM LIST CONVERSION Hyperlipidemia Assessment & Plan (04/17/2024 3:50 PM LEAD BURNER): >>ASSESSMENT AND PLAN FOR HYPERLIPIDEMIA WRITTEN ON 10/02/2016 11:54 AM BY PETER TONG, DO Continue diet medication check lab today Assessment & Plan (04/17/2024 3:50 PM LEAD BURNER): >>ASSESSMENT AND PLAN FOR HYPERLIPIDEMIA WRITTEN ON 12/18/2017 11:30 PM BY PETER TONG, DO Check lab in 4 weeks prior to next appointment off alcohol To see if improvement occurs continue medication diet Assessment & Plan (04/17/2024 3:50 PM LEAD BURNER): >>ASSESSMENT AND PLAN FOR HYPERLIPIDEMIA WRITTEN ON 06/17/2018 9:17 AM BY JAGUAR VALE NP Cont med and low chol diet Assessment & Plan (04/17/2024 3:50 PM LEAD BURNER): >>ASSESSMENT AND PLAN FOR HYPERLIPIDEMIA WRITTEN ON 12/03/2018 4:12 PM BY PETER TONG, DO Recommend healthy diet continue medication check lab fasting Assessment & Plan (04/17/2024 3:50 PM LEAD BURNER): >>ASSESSMENT AND PLAN FOR HYPERLIPIDEMIA WRITTEN ON 09/22/2019 7:51 PM BY PETER TONG, DO Continue diet and fish oil and rosuvastatin check lab today fasting Assessment & Plan (04/17/2024 3:50 PM LEAD BURNER): >>ASSESSMENT AND PLAN FOR HYPERLIPIDEMIA WRITTEN ON 12/12/2020 5:10 PM BY JAGUAR VALE, UMESH Stable. Continue rosuvastatin and low-cholesterol diet. Encourage weight loss. Assessment & Plan (04/17/2024 3:50 PM LEAD BURNER): >>ASSESSMENT AND PLAN FOR HYPERLIPIDEMIA WRITTEN ON 01/08/2022 10:24 AM BY JAGUAR VALE NP Stable. Continue atorvastatin and low-cholesterol diet. Assessment & Plan (04/17/2024 3:50 PM LEAD BURNER): >>ASSESSMENT AND PLAN FOR HYPERLIPIDEMIA WRITTEN ON 09/02/2022 10:47 PM BY JAGUAR VALE NP Stable. Continue statin. Low-cholesterol diet. Weight loss. Assessment & Plan (04/17/2024 3:50 PM LEAD BURNER): >>ASSESSMENT AND PLAN FOR HYPERLIPIDEMIA WRITTEN ON 01/04/2023 4:39 PM BY PETER TONG, DO Add Zetia to rosuvastatin patient given diet handout for both triglyceride and heart healthy low-cholesterol diet reviewed with patient and daughter today check lab in 8 weeks LDL goal less than 70 especially with low HDL Assessment & Plan (04/17/2024 3:50 PM LEAD BURNER): >>ASSESSMENT AND PLAN FOR HYPERLIPIDEMIA WRITTEN ON 01/09/2024 1:56 PM BY AIDEN ENRIQUEZ NP Lipid panel ordered. Continue ezetimibe and rosuvastatin. Continue heart healthy diet. Will continue to monitor. Assessment & Plan (12/05/2018 3:28 PM CDT): Lipids are well controlled. Continue high-intensity statin therapy. Assessment & Plan (05/23/2017 1:22 PM CDT): Continue diet medication check lab fasting today Assessment & Plan (05/22/2017 1:46 PM CDT): Lipids are well controlled. Continue high-intensity statin therapy. Coronary artery calcification seen on CAT scan Assessment & Plan (01/04/2023 4:33 PM LEAD BURNER): Improve blood pressure and cholesterol control report chest pain continue aspirin and statin medication Assessment & Plan (05/30/2021 9:08 PM CDT): Continue aspirin statin medication blood pressure control report chest pain shortness of breath Resolved Problems Problem Noted Date Diagnosed Date Resolved Date Hospital discharge follow-up 10/03/2023 04/17/2024 Assessment & Plan (10/03/2023 1:06 PM CDT): IAiden NP have personally reviewed pertinent inpatient and/or ED records, including discharge medications and Clindesk if applicable. This patient's discharge medication list has been reviewed and reconciled with her outpatient medication list and has also been reviewed with patient and/or caregiver. I have noted any changes. Acute diverticulitis 07/19/2023 025 Assessment & Plan (07/19/2023 5:46 PM CDT): Recent episode in April of 2023 resolved with antibiotic. Asymptomatic at this point. No further evaluation. We discussed high-fiber diet but stay away from nuts and popcorn and seeds. Dysuria 07/19/2023 04/17/2024 Assessment & Plan (07/19/2023 5:49 PM CDT): She has history of recurrent urinary tract infection. Will check urine analysis today Episodic lightheadedness 03/31/2023 Assessment & Plan (04/05/2023 10:09 PM LEAD BURNER): Hydration encouraged along with changing positions slowly report worsening symptom Urine leukocytes 03/31/2023 04/17/2024 Itching 02/28/2023 04/17/2024 Assessment & Plan (02/28/2023 3:12 PM LEAD BURNER): Triamcinolone cream p.r.n. avoid on face Weight loss 02/28/2023 04/17/2024 Assessment & Plan (02/28/2023 3:13 PM LEAD BURNER): Will treat anxiety depression which may help daughters will help monitor intake and report further weight loss or loss of appetite Dizziness 10/01/2022 04/17/2024 Assessment & Plan (10/02/2022 9:37 PM CDT): Likely due to otitis media. Doxycycline 100 mg b.i.d. times 10 days. Notify me if symptoms worsen or if no improvement in [address] findings with patient and daughter in office today. Discomfort of right ear 10/01/2022 04/2 02/2024 Assessment & Plan (10/01/2022 3:18 PM CDT): Otitis media. Doxycycline 100 mg b.i.d. times 10 days. Notify me if symptoms worsen or if no improvement in 1 week. Other fatigue 08/21/2022 04/17/2024 Chronic headache 08/21/2022 04/17/2024 Assessment & Plan (02/28/2023 3:12 PM LEAD BURNER): Although no real change recently do the chronicity I recommend referral to neurology for evaluation and possible medication recommendations Assessment & Plan (09/02/2022 10:47 PM CDT): Schedule head CT. Tylenol extra-strength 2 tablets t.i.d. as needed for pain. UTI (urinary tract infection) 03/14/2022 04/17/2024 Assessment & Plan (04/05/2023 10:07 PM LEAD BURNER): Patient finishing antibiotic now clinically doing well recheck lab todayReport dysuria or urinary frequency or acute confusion BMI 33.0-33.9,adult 01/08/2022 04/17/19 Assessment & Plan (01/04/2023 4:31 PM LEAD BURNER): BMI Follow-up includes: nutrition counseling, exercise counseling, and education provided. Assessment & Plan (09/02/2022 10:45 PM CDT): BMI Follow-up includes: Diet and exercise . Assessment & Plan (01/08/2022 10:25 AM LEAD BURNER): BMI Follow-up includes: Diet and exercise. Screening for colon cancer 01/03/2022 0 04/17/[address] 05/30/2021 04/17/2024 Assessment & Plan (05/30/2021 9:07 PM CDT): CT findings may be consistent with early fibrosis I encourage full vaccination with booster COVID now patient requests ImaCor at local pharmacy despite my recommendation for either pfizer or NimbusBase patient is up-to-date on other vaccines report increased shortness of breath/ cough Lower abdominal pain 05/01/2021 022 Assessment & Plan (05/01/2021 9:05 AM LEAD BURNER): Recent episode of lower abdominal pain seems to be improving and the resolved. Could be secondary to constipation or diverticular disease. Will schedule CT scan of the abdomen pelvis for evaluation specially in view of the anemia. Nocturia 09/22/2019 04/17/2024 Assessment & Plan (09/22/2019 12:33 PM CDT): Avoid late p.m. fluids caffeine and alcohol Significant use of alcohol 12/18/2017 1 Assessment & Plan (12/18/2017 11:34 PM CDT): Exact amount is unclear at least 1 glass possibly 2 or 3 a day of wine noted Encourage complete alcohol abstinence over the next 4 weeks daughters to help encourage patient treat anxiety with buspirone continue SSRI Primary insomnia 12/17/2017 12/17/2017 Major depressive disorder wi th single episode, in partial remission 10/02/2016 12/03/2018 Assessment & Plan (12/18/2017 11:31 PM CDT): Stop alcohol intake continue SSRI add buspirone follow closely in 4 weeks Assessment & Plan (10/02/2016 11:57 AM CDT): Patient doing well on SSRI although still having some sleeping difficulty and difficulty with 1 and half pills and compliance recommend increasing to 1 full tablet 20 mg a day and monitor for response Depression 02/18/2016 10/02/2016 Overview (06/03/2016): Depression Adiposity 04/19/2015 04/17/2024 Overview (06/03/2016): Obesity Pure hypercholesterolemia 12/09/2013 Overview (05/31/2016): Pure hypercholesterolemia Labile hypertension 04/07/2008 04/17/19 25 Assessment & Plan (04/05/2023 10:08 PM LEAD BURNER): Restart lisinopril 10 mg a day daughter to report if consistently greater than 130/80 at home or systolic blood pressure is consistently below 110 check BMP today due to recent elevation in potassium GERD (gastroesophageal reflux disease) 09/22/2019 Encounters Date Type Department Care Team Description 10/30/2024 Telephone [facility] Medical [facility] Primary Care at [address] [place] [address] Isaías Peoples MD Med Refill 10/28/2024 Telephone [facility] Primary Care at [address] [place] [address] Isaías Peoples MD several concerns/quesitons 10/24/2024 Telephone [facility] Orthopedics and Sports Medicine [address] [place] [address] Dionna Whitmore MA Patient Release from Rehab 10/24/2024 Telephone [facility] Medical Group Primary Care at [place] [id number] [facility] [address] [place] [address] Isaías Peoples MD Medical Question/Miscellaneo us 10/24/2024 Telephone [facility] Home Care Services [address] [facility] [address] [place] [phone] Evie Borgesnda 10/24/2024 ACO Outreach [facility] Care Organization [address] [place] [address] Sheron Doyle RN 10/21/2024 Telephone [facility] Medical [facility] Orthopedics and Sports Medicine [address] [place] [address] [address] [place] [phone] Thad Fuentes MD 10/01/2024 Telephone [facility] Medical [facility] Primary Care at [address] [place] [phone] Isaías Peoples MD Medical Question/Miscellaneo us 09/29/2024 2:20 PM CDT - 09/29/2024 4:45 PM CDT Surgery [facility] Operating Room [address] [place] [address] Thad Fuentes MD Right Total Hip Arthroplasty- Anterior Approach 09/29/2024 12:48 PM CDT Anesthesia Event [facility] Operating Room [address] [place] [address] Heather Oneal MD Reynolds, Ethan Emerson, MD 09/29/2024 10:34 AM CDT - 10/01/2024 12:32 PM CDT Hospital Encounter [facility] Surgery Care [address] [place] [address] Thad Fuentes MD Avascular necrosis of hip, right (HCC) (Primary Dx) Discharge Disposition: Discharge to 09/26/2024 Documentation [facility] Medical [facility] Orthopedics and Sports Medicine [address] [place] [address] [address] [place] [address] Merlyn Vang MA 09/22/2024 9:52 PM CDT - 09/22/2024 11:59 PM CDT Hospital Encounter [facility] Emergency, Room R Discharge Disposition: Discharge to home or self care 09/22/2024 3:23 PM CDT - 09/22/2024 9:50 PM CDT Emergency [facility] Emergency Department [address] [place] [address] Fall, initial encounter (Primary Dx); Avascular necrosis (HCC) Discharge Disposition: Discharge to home or self care 09/22/2024 3:18 PM CDT - 09/22/2024 11:59 PM CDT Hospital Encounter [facility] Emergency, Room R Discharge Disposition: Discharge to home or self care 09/22/2024 Telephone [facility] Primary Care at [address] [place] [address] Isaías Peoples MD 09/19/2024 Telephone [facility] Primary Care at [address] [place] [address] Isaías Peoples MD Referral Request 09/19/2024 Telephone [facility] Medical [facility] Primary Care at [address] [place] [address] Isaías Peoples MD 09/19/2024 ACO Outreach [facility] Accountable Care Organization [address] [place] [address] Loretta Jordan RN 09/19/2024 Orders Only [facility] Medicine Surgery [address] [place] [phone] Ezequiel Laughlin MD Carotid stenosis, asymptomatic, bilateral (Primary Dx) 09/18/2024 Orders Only [facility] Medical [facility] Orthopedics and Sports Medicine [address] [facility] [address] [place] [address] Thad Fuentes MD 09/18/2024 Telephone [facility] Primary Care at [address] [place] [address] Isaías Peoples MD 09/17/2024 Telephone [facility] Medical [facility] Orthopedics and Sports Medicine [address] [place] [phone] Thad Fuentes MD surgery 09/16/2024 12:35 PM CDT Lab [address] Pre-operative exam 09/16/2024 11:30 AM CDT Office Visit [facility] [address] [place] [address], [place] [address] Thad Fuentes MD Right hip pain (Primary Dx); Primary osteoarthritis of right hip; Pre-operative exam; Avascular necrosis of bone of right hip (HCC) 09/16/2024 7:40 AM CDT - 09/16/2024 11:59 PM CDT Hospital Encounter [facility] Medical [facility] Orthopedics and Sports Medicine [address] [place] [phone] Discharge Disposition: Discharge to home or self care 09/16/2024 Telephone [facility] Medical Group Primary Care at [address] [address] Patito Rodriguez NP 09/12/2024 Telephone [facility] Medicine [address] [place] [phone] Thad Fuentes MD [facility] XR Images/HIP 08/19/2024 Telephone [facility] Medical Group Primary Care at [address] [address] Isaías Peoples MD Medical Question/Miscellaneo us 08/19/2024 Telephone [facility] Medical Group Primary Care at [address] [address] Isaías Peoples MD Referral Request 08/17/2024 6:22 AM CDT - 08/17/2024 11:59 PM CDT Hospital Encounter [facility] Emergency, Room R Discharge Disposition: Discharge to home or self care 08/14/2024 1:30 PM CDT Office Visit [facility] Medicine Surgery [address] [facility] [address] [place] [phone] Bonny Huizar PA Trigger middle finger of right hand (Primary Dx); Trigger middle finger of left hand; Trigger ring finger of right hand; Dupuytren's disease of palm of right hand 08/14/2024 Telephone [facility] Primary Care at [address] [place] [address] Isaías Peoples MD 08/07/2024 Telephone [facility] Primary Care at [address] [place] [address] Isaías Peoples MD Med Refill 08/06/2024 Results Follow-Up [facility] Primary Care at [address] [place] [address] Isaías Peoples MD XR Knee Right 1 or 2 Views 08/05/2024 4:45 PM CDT Office Visit [facility] Primary Care at [address] [place] [address] Isaías Peoples MD Acute pain of right knee (Primary Dx) 08/05/2024 4:15 PM CDT - 08/05/2024 11:59 PM CDT Hospital Encounter [facility] Radiology - Outpatient Center at [address] [address] Acute pain of right knee Discharge Disposition: Discharge to home or self care 08/05/2024 2:10 PM CDT - 08/05/2024 11:59 PM CDT Hospital Encounter [facility] Imaging Center [address] [place] [address] Right hand pain; Left hand pain Discharge Disposition: Discharge to home or self care 08/05/2024 Nurse Triage [facility] Primary Care at [place] [address] [facility] [address] [place] [phone] Marielena Perez RN 08/05/2024 Orders Only [facility] Medicine Surgery [address] [place] [address] Medical Office Building [address] [place] [address] Bonny Huizar PA Left hand pain (Primary Dx) 08/04/2024 Orders Only [facility] Medicine Surgery [address] [place] [address] Medical Office Building [address] [place] [address] Bonny Huizar PA Right hand pain (Primary Dx) from Last 3 Months Immunizations Immunization Administration Dates Next Due Influenza, Quad, Adjuvantate d, Intramuscular 11/22/2020 Influenza, Quadrivalent, Hig h Dose, Preservative Free, Intrr 01/04/2023,12/09/2021,12/08/2021,12/08 Influenza, Split 12/11/2011, 1,12/13/2009,11/11 Influenza, Trivalent, High D ose, Split, Preservative Free, Intramuscular 12/03/2018,12/17/2017,01/02/2017,11/26,12/23/2014,11/26/2014,11/19/2013 ,11/19/2013 Influenza, Trivalent, IM (MDV) 11/15/2012 Influenza, Unspecified 01/08/2024(Deferr ed: Patient Refused),12/06/2023(Deferred: Patient Refused),01/04/2023,10/27/2020, 020 Jackie (J&J) SARS-CoV-2 Vaccination 05/04/2020 Pneumococcal Conjugate PCV 13 04/19/2015 Pneumococcal Polysaccharide PPV23 02/22/2014 ZOSTER Recombinant 03/31/2020,,01/04/2019,01/04 Surgical History Surgery Date Site/Laterality Comments KNEE ARTHROPLASTY 02/26/1997 - 02/25/1998 Right Knee replacement HYSTERECTOMY 02/26/1999 - 02/26/2000 Hysterectomy OTHER SURGICAL HISTORY 02/26/2011 - 02/26/2012 gastric ulcer: upper endoscopy OTHER SURGICAL HISTORY 02/26/2017 - 02/25/2018 Bilateral cataract removed TOTAL KNEE ARTHROPLASTY Left CARPAL TUNNEL RELEASE Bilateral Medical History Medical History Date Comments Hx Other Medical 2011 gastric ulcer Hx Other Medical 10/16/2011 right knee repl acement Anxiety Allergic Arthritis Hyperlipidemia Hypertension Depression GERD (gastroesophageal reflux disease) Obesity Carotid stenosis, asymptomatic, bilateral Sleep difficulties Diverticulosis Coronary artery calcification seen on CAT scan PONV (postoperative nausea and vomiting) Family History Medical History Relation Name Comments No Known Problems Brother 1 Heart disease Brother 2 Heart disease Brother 3 No Known Problems Brother 4 COPD Father Other Father emphesema; Caus e of : emphesema Hypertension Mother Hypertension; Stroke Mother Stroke; Cause o f : Stroke Breast cancer Mother's Sister Cancer -macario ast; Hypertension Other 1 Family history of Hypertension; Breast cancer Other 2 Family history of Cancer, breast; Ovarian cancer Other 3 Family histor y of Cancer, ovarian; Hypertension Sister 1 No Known Problems Sister 2 No Known Problems Sister 3 Relation Name Status Comments Brother 1 Alive Brother 2 Brother 3 Brother 4 Alive Father (Age 80) Mother (Age 89) Mother's Sister Other 1 Other 2 Other 3 Sister 1 Alive Sister 2 Alive Sister 3 Alive Social History Tobacco Use Types Packs/Day Years Used Date Smoking Tobacco: Never Smokeless Tobacco: Never Tobacco Cessation:Counseling Given: Not Answered Alcohol Use Standard Drinks/Week Comments Not Currently [...] week 09/30/2024 How often do you attend [facility] or pentecostalism services? Never 09/30/2024 Do you belong to any clubs o r organizations such as hinduism groups, unions, fraternal or athletic groups, or [...] any time in the past [facility], were you homeless or living in a usp (including now)? No 09/30/2024 Social Connection and Isolation Panel Answer Date Recorded In a typical week, how many times do you talk on the phone with family, friends, or neighbors? More than three times a week 10/28/2024 How often do you get togethe r with friends or relatives? More than three times a week 10/28/2024 How often do you attend chur ch or pentecostalism services? Never 10/28/2024 Do you belong to any clubs o r organizations such as hinduism groups, unions, fraternal or athletic groups, or [...] any time in the past 12 [facility], were you homeless or living in a usp (including now)? No 10/28/2024 [facility] Utilities Answer Date Recorded In the past 12 months has th e electric, gas, oil, or water Sincerely threatened to shut off services in your home? No 10/28/2024 Personal Safety Answer Date Recorded Have you ever been in or are you currently in a harmful physical or emotional relationship or is someone making you feel afraid or unsafe? 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 Not on file Not on file Not on file Obstetrics History Para Term AB IAB SAB Ectopic Multiple Livin g Live Births 4 4 4 Date Outcome GA Total Labor Labor/2nd/3rd Weight Sex Type Anes PTL Michelle A1 A5 Name Clin 1960 Term Vag-Sp ont 1962 Term Vag-Sp ont Complications:None 1967 Term Vag-Sp ont 1971 Term Vag-Sp ont Last Filed Vital Signs Vital Sign Reading Time Taken Comments Blood Pressure 132/51 10/01/2024 10:06 AM CDT Pulse 82 10/01/2024 10:06 AM CDT Temperature 36.3 C (97.3 F) 10/01/2024 10:06 AM CDT Respiratory Rate 18 10/01/2024 10:0 6 AM CDT Oxygen Saturation 96% 10/01/2024 7:03 AM CDT Inhaled Oxygen Concentration - - Weight 73.8 kg (162 lb 12.8 oz) 09/30/2024 3:15 AM CDT Height 162.6 cm (5' 4) 09/30/2024 3:15 AM CDT Body Mass Index 27.94 09/30/2024 3:15 AM CDT Plan of Treatment Health Maintenance Due Date Last Done Comments DTaP/Tdap/Td Vaccine (1 - Tdap) 1951 Hepatitis B Screening 01/11/1958 Osteoporosis Screening-Bone Density Scan 01/06/2023 01/06/2021, 08/06/2013 Covid-19 Vaccine (2 - 2024-2 6 season) 2024 05/04/2020 Influenza Vaccine (#1) 2024 3, 01/04/2023, 12/09/2021, Additional history exists Well Visit 65+ 01/07/2025 01/08/2024, 10/2022, 02/23/2022, Additional history exists Depression Screening 04/17/2025 04/17/2024, 04/17/2024, 01/08/2024, Additional history exists Fall Risk Assessment 10/01/2025 10/01/2024, 09/18/2024, 01/08/2024, Additional history exists Pneumococcal vaccine 65+ Completed 04/19/2015, 01/27 Zoster Vaccine Completed 03/31/2020, 10/2019, 01/04/2019, Additional history exists Goals Goal Patient Goal Type Associated Problems Recent Progress Patient-Stated? Author Autogenera yvrose Goal Care Plan Autogenerated Problem No Rosalinda Carson MA Medical Devices Implanted Type Area Patternmaker Pressure Cast Device Identifier Shelf Expiration Date Model / Serial / Lot [employer] [place] 52mm Sector Hip Shell Acetabular Gription Sterile Latex Free [id number] - [id number] Implanted:Qty: 1 on 09/29/2024 by Thad Fuentes MD at [facility] Right: Hip [employer] [id number] 06/25/2034 [id number] / / [id number] [employer] [place] 52mm 36mm Hip Neutral Liner Acetabular Altrx Sterile Latex Free [id number] - [id number] Implanted:Qty: 1 on 09/29/2024 by Thad Fuentes MD at [facility] Right: Hip [employer] [id number] 05/26/2029 [id number] / / [id number] [employer] [place] 6.5mm 25mm Acetabular Cancellous Screw Bone Sterile 1217-25-500 - [id number] Implanted:Qty: 1 on 09/29/2024 by Thad Fuentes MD at [facility] Right: Hip [employer] [id number] 06/25/2034 1217-25-500 / / [id number] [employer] [place] 6.5mm 20mm Acetabular Cancellous Screw Bone Sterile 1217-20-500 - [id number] Implanted:Qty: 1 on 09/29/2024 by Thad Fuentes MD at [facility] Right: Hip [employer] [id number] 05/26/2034 1217-20-500 / / [id number] [employer] Actis Collared Hip 02/08 6 Standard Offset Stem Femoral [id number] - [id number] Implanted:Qty: 1 on 09/29/2024 by Thad Fuentes MD at [facility] Right: Hip [employer] [id number] 02/25/2034 [id number] / / [id number] [employer] Articul/Jose Alberto 36mm Cementless Hip +5mm 02/08 Taper Head Femoral Latex Free [id number] - [id number] Implanted:Qty: 1 on 09/29/2024 by Thad Fuentes MD at [facility] Right: Hip [employer] [id number] 07/26/2029 [id number] / / [id number] Procedures Procedure Name Priority Date/Time Associated Diagnosis Comments HEMOGLOBIN AND HEMATOCRIT STAT 10/01/2024 11:00 AM CDT EGFR Routine 10/01/2024 3:31 AM CDT CBC WITHOUT DIFFERENTIAL Routine 10/01/2024 3:31 AM CDT BASIC METABOLIC PANEL Routine 10/01/2024 3:31 AM CDT EGFR Routine 09/30/2024 3:52 AM CDT CBC WITHOUT DIFFERENTIAL Routine 09/30/2024 3:52 AM CDT BASIC METABOLIC PANEL Routine 09/30/2024 3:52 AM CDT XR PELVIS ORTHO VIEW IP Routine 09/29/2024 3:27 PM CDT XR HIP RIGHT 1 VIEW IP Routine 09/29/2024 2 :43 PM CDT Avascular necrosis of hip, right (HCC) FL FLUOROSCOPY < 1 HOUR IP Routine 09/29/2024 2:43 PM CDT ANESTHESIA SPINAL BLOCK Routine 09/29/2024 1:09 PM CDT ARTHROPLASTY TOTAL HIP - ANTERIOR APPROACH 09/29/2024 12:27 PM CDT Avascular necrosis of hip, right (HCC) Special Needs Anterior Approach, Depuy- Actis , Omnitrac, Aquamantys, 1 Liter beta Rinse, Pt to stay APTT STAT 09/29/2024 11:36 AM CDT PROTIME-INR STAT 09/29/2024 11:36 AM CDT SURGICAL PATHOLOGY Routine 09/29/2024 8: 40 AM CDT Avascular necrosis of hip, right (HCC) EGFR STAT 09/22/2024 5:38 PM CDT DIFFERENTIAL AUTO STAT 09/22/2024 5:3 8 PM CDT COMPREHENSIVE METABOLIC PANEL STAT 09/22/2024 5:38 PM CDT CBC WITH AUTO DIFFERENTIAL STAT 09/22/2024 5:38 PM CDT XR HIP RIGHT W PELVIS 2 OR 3 VIEWS ED 09/22/2024 4:12 PM CDT EGFR Routine 09/16/2024 12:53 PM CDT Pre-operative exam DIFFERENTIAL AUTO Routine 09/16/2024 12: 53 PM CDT Pre-operative exam HEMOGLOBIN A1C Routine 09/16/2024 12:53 PM CDT Pre-operative exam COMPREHENSIVE METABOLIC PANEL Routine 09/16/2024 12:53 PM CDT Pre-operative exam CBC WITH AUTO DIFFERENTIAL Routine 09/16/2024 12:53 PM CDT Pre-operative exam XR HIP RIGHT 2 OR 3 VIEWS Schedule Routine, Read Routine (OP Routine) 09/16/2024 11:01 AM CDT Right hip pain XR KNEE RIGHT 1 OR 2 VIEWS Schedule Routine, Read Routine (OP Routine) 08/05/2024 4:32 PM CDT Acute pain of right knee XR HAND LEFT 3 OR MORE VIEWS Schedule Routine, Read Routine (OP Routine) 08/05/2024 2:33 PM CDT Left hand pain XR HAND RIGHT 3 OR MORE VIEWS Schedule Routine, Read Routine (OP Routine) 08/05/2024 2:33 PM CDT Right hand pain DEXA AXIAL SKELETON BONE DENSITY 1 OR MORE SITES Schedule Routine, Read Routine (OP Routine) 01/06/2021 3:16 PM LEAD BURNER Screening for osteoporosis Other primary ovarian failure from Last 3 Months or Most Recently Relevant to Health Maintenance Results * (ABNORMAL) Hemoglobin and hematocrit (10/01/2024 11:00 AM CDT) Hgb 8.2(L) 11.9 - 15.5 g/dL Hct 25.5(L) 35.6 - 45.5 % [facility] Blood 10/01/2024 11:0 0 AM CDT 10/01/2024 11:16 AM CDT Thad Fuentes MD LAB BLOOD ORDERABLES Fin al Result [facility] Department [place] [address] * eGFR (10/01/2024 3:31 AM CDT) eGFR 86 >=60 mL/min/1. 73 m2 Comment: Interpretive Data Reference Interval Normal >/= 90 mL/min/1.73m2 Mildly decreased* 60 - 89 mL/min/1.73m2 Mildly to moderately decreased 45 - 59 mL/min/1.73m2 Moderately to severely decreased 30 - 44 mL/min/1.73m2 Severely decreased 15 - 29 mL/min/1.73m2 Kidney Failure < 15 mL/min/1.73m2 *Relative to young adult level Estimated glomerular filtration rate is determined by the 2020 CKD-EPI equation recommended by the National Kid[employer] (A Unifying Approach to GFR Estimation: Recommendations of the NKF-ASK Task Force on Reassessing the Inclusion of Race in Diagnosing Kidney Disease, JASN 2020). The CKD-EPI equation should not be used for patients with unstable renal function and has not been validated in children and those over 70. Current interpretive data was last reviewed 2020. Blood 10/01/2024 3:31 AM CDT 10/01/2024 3:44 AM CDT us Fern VELAS[facility] LAB BLOOD ORDERABLES Final Result [facility] Department [place] [address] * (ABNORMAL) CBC without differential (10/01/2024 3:31 AM CDT) WBC 8.74 3.80 - 9.90 K/cumm Hgb 7.1(L) 11.9 - 15.5 g/dL [facility] ([place] Hct 22.6(L) 35.6 - 45.5 % [facility] Plt 180 150 - 400 K/cumm [facility] MPV 9.5 9.1 - 12.3 fL [facility] RBC 2.35(L) 3.90 - 5.20 M/cumm [facility]) MCV 96.2 81.3 - 96.4 fL [facility] MCH 30.2 27.1 - 33.3 pg [facility]) MCHC 31.4(L) 32.3 - 35.7 g/dL [facility]) RDW CV 14.5 11.1 - 14.9 % [facility] RDW SD 50.4(H) 35.7 - 48.1 fL [facility]) NRBC abs 0.00 0.00 - 0.01 K/cumm [facility] ([place]) Blood 10/01/2024 3:31 AM CDT 10/01/2024 3:44 AM CDT Fern VELASCO LAB BLOOD ORDERABLES Final Result [facility] ([place]) 1 [facility] Department [place] [address] * (ABNORMAL) Basic metabolic panel (10/01/2024 3:31 AM CDT) Sodium 134(L) 135 - 145 mmol/L [facility] ([place]) Potassium, pl 4.0 3.3 - 4.9 mmol/L [facility]) Chloride 102 97 - 110 mmol/L [facility]) CO2 22 22 - 32 mmol/L [facility]) Anion gap 10 2 - 15 mmol/L [facility]) BUN 19 6 - 25 mg/dL [facility]) Creatinine 0.65 0.60 - 1.10 mg/dL [facility]) Glucose 99 70 - 199 mg/dL [facility] ([place]) Comment: Interpretive Data Fasting glucose >/= 126 mg/dl is diagnostic for diabetes. Fasting is defined as no caloric intake for at least 8 hours. Fasting glucose between 100 mg/dl to 125 mg/dl is diagnostic of prediabetes. In a patient with classic symptoms of hyperglycemia or hyperglycemic crisis, a random glucose >/= 200 mg/dl is diagnostic for diabetes. In the absence of unequivocal hyperglycemia, results should be confirmed by repeat testing. The classification and Diagnosis of Diabetes Diabetes Care 2021; 46: S19-S40. Current interpretive data was last revised 2022. Calcium 8.4(L) 8.5 - 10.3 mg/dL [facility] ([place]) Blood 10/01/2024 3:31 AM CDT 10/01/2024 3:44 AM CDT Fern VELASCO LAB BLOOD ORDERABLES Final Result [facility] 1 [place] [address] * eGFR (09/30/2024 3:52 AM CDT) eGFR 86 >=60 mL/min/1. 73 m2 Comment: Interpretive Data Reference Interval Normal >/= 90 mL/min/1.73m2 Mildly decreased* 60 - 89 mL/min/1.73m2 Mildly to moderately decreased 45 - 59 mL/min/1.73m2 Moderately to severely decreased 30 - 44 mL/min/1.73m2 Severely decreased 15 - 29 mL/min/1.73m2 Kidney Failure < 15 mL/min/1.73m2 *Relative to young adult level Estimated glomerular filtration rate is determined by the 2020 CKD-EPI equation recommended by the National Kidney Foundation (A Unifying Approach to GFR Estimation: Recommendations of the NKF-ASK Task Force on Reassessing the Inclusion of Race in Diagnosing Kidney Disease, JASN 2020). The CKD-EPI equation should not be used for patients with unstable renal function and has not been validated in children and those over 70. Current interpretive data was last reviewed 2020. Blood 09/30/2024 3:52 AM CDT 09/30/2024 4:41 AM CDT Fern VELASCO LAB BLOOD ORDERABLES Final Result [facility] ([place]) 1 [facility] [place] [address] * (ABNORMAL) CBC without differential (09/30/2024 3:52 AM CDT) WBC 10.82(H) 3.80 - 9.90 K/cumm Hgb 8.4(L) 11.9 - 15.5 g/dL [facility] ([place] Hct 25.5(L) 35.6 - 45.5 % [facility] ([place] Plt 218 150 - 400 K/cumm [facility] ([place]) MPV 10.0 9.1 - 12.3 fL [facility]) RBC 2.76(L) 3.90 - 5.20 M/cumm [facility] ([place]) MCV 92.4 81.3 - 96.4 fL [facility]) MCH 30.4 27.1 - 33.3 pg [facility]) MCHC 32.9 32.3 - 35.7 g/dL [facility]) RDW CV 14.1 11.1 - 14.9 % [facility]) RDW SD 48.1 35.7 - 48.1 fL [facility] NRBC abs 0.00 0.00 - 0.01 K/cumm [facility] Blood 09/30/2024 3:52 AM CDT 09/30/2024 4:42 AM CDT Fern VELASCO LAB BLOOD ORDERABLES Final Result [facility] ([place]) 1 [facility] Department of Laboratories [place] [id number] * Basic metabolic panel (09/30/2024 3:52 AM CDT) Sodium 136 135 - 145 mmol/L [facility] Potassium, pl 4.7 3.3 - 4.9 mmol/L [facility] Chloride 103 97 - 110 mmol/L [facility]) CO2 23 22 - 32 mmol/L [facility] ([place]) Anion gap 10 2 - 15 mmol/L [facility] BUN 20 6 - 25 mg/dL [facility] Creatinine 0.64 0.60 - 1.10 mg/dL [facility]) Glucose 137 70 - 199 mg/dL [facility] ([place]) Comment: Interpretive Data Fasting glucose >/= 126 mg/dl is diagnostic for diabetes. Fasting is defined as no caloric intake for at least 8 hours. Fasting glucose between 100 mg/dl to 125 mg/dl is diagnostic of prediabetes. In a patient with classic symptoms of hyperglycemia or hyperglycemic crisis, a random glucose >/= 200 mg/dl is diagnostic for diabetes. In the absence of unequivocal hyperglycemia, results should be confirmed by repeat testing. The classification and Diagnosis of Diabetes Diabetes Care 2021; 46: S19-S40. Current interpretive data was last revised 2022. Calcium 8.8 8.5 - 10.3 mg/dL [facility] ([place]) Blood 09/30/2024 3:52 AM CDT 09/30/2024 4:41 AM CDT us Fern VELASCO LAB BLOOD ORDERABLES Final Result [facility]RA [facility] ([place]) 1 [facility] Department [place] [address] * XR Pelvis Ortho View (09/29/2024 3:27 PM CDT) Anatomical Region Laterality Modality Body, Pelvis N/A Computed Radiogr aphy 09/29/2024 5:16 PM CDT Narrative 09/29/2024 5:17 PM CDT EXAM DESCRIPTION: XR PELVIS ORTHO VIEW REASON FOR STUDY: Patient is status post total right hip arthroplasty. TECHNIQUE: Single radiographic view(s) of the pelvis . COMPARISON: Fluoroscopic images obtained intraoperatively earlier today. Prior exam 09/22/2024. FINDINGS: Patient is status post total right hip arthroplasty with no radiographic evidence of complication. Expected postoperative soft tissue change. Mild osteoarthritis left hip. Mild spondylosis lower lumbar spine. Soft tissues are unremarkable. IMPRESSION: Patient is status post total right hip arthroplasty with no radiographic evidence of complication. THIS IS AN ELECTRONICALLY VERIFIED FINAL REPORT 09/29/2024 5:17 PM - Electronically signed by Bear Brown M.D. MJ: MEERA Report ID: [id number] Reading Location: [id number] Procedure Note Bear Brown MD - 08/04/2025 EXAM DESCRIPTION: XR PELVIS ORTHO VIEW REASON FOR STUDY: Patient is status post total right hip arthroplasty. TECHNIQUE: Single radiographic view(s) of the pelvis . COMPARISON: Fluoroscopic images obtained intraoperatively earlier today. Prior exam 09/22/2024. FINDINGS: Patient is status post total right hip arthroplasty with no radiographic evidence of complication. Expected postoperative soft tissue change.Mild osteoarthritis left hip. Mild spondylosis lower lumbar spine. Softtissues are unremarkable. IMPRESSION: Patient is status post total right hip arthroplasty with no radiographic evidence of complication. THIS IS AN ELECTRONICALLY VERIFIED FINAL REPORT 09/29/2024 5:17 PM - Electronically signed by Bear Brown M.D. MJ: MEERA Report ID: [id number] Reading Location: [place] [id number] Fern VELASCO IMG XR PROCEDURES Fin al Result * FL Fluoroscopy < 1 Hour (09/29/2024 2:43 PM CDT) Narrative [facility] - 09/29/2024 2:45 PM CDT The images from this study are not interpreted by Radiology. Please refer to the physician's procedure / OR operative note. Thad Fuentes MD IMG FLUOROSCOPY PROCEDUR ES Final Result [facility] * XR Hip Right 1 View (09/29/2024 2:43 PM CDT) Anatomical Region Laterality Modality Lower Extremities, Hip, Pelvis Right R adio Fluoroscopy 09/29/2024 9:50 PM CDT Narrative 09/29/2024 9:51 PM CDT EXAM DESCRIPTION: XR HIP RIGHT 1 VIEW REASON FOR STUDY: pain Right BUSTER Time: 6.7 sec Dose: 0.60 mGy TECHNIQUE: Right hip radiographs COMPARISON: 09/14/2024 FINDINGS: Intraoperative images related to a right hip replacement. IMPRESSION: Intraoperative images related to a right hip replacement. THIS IS AN ELECTRONICALLY VERIFIED FINAL REPORT 09/29/2024 9:51 PM - Electronically signed by Barney Gaston M.D. KR: [place] Report ID: [id number] Reading Location: [id number] Procedure Note Barney Gaston MD - 09/29/2024 EXAM DESCRIPTION: XR HIP RIGHT 1 VIEW REASON FOR STUDY: pain Right BUSTER Time: 6.7 sec Dose: 0.60 mGy TECHNIQUE: Right hip radiographs COMPARISON: 09/14/2024 FINDINGS: Intraoperative images related to a right hip replacement. IMPRESSION: Intraoperative images related to a right hip replacement. THIS IS AN ELECTRONICALLY VERIFIED FINAL REPORT 09/29/2024 9:51 PM - Electronically signed by Barney Gaston M.D. KR: [place] Report ID: [id number] Reading Location: [id number] Thad Fuentes MD IMG XR PROCEDURES Final Result * Spinal Block (09/29/2024 1:09 PM CDT) Narrative Sanjeev Acevedo CRNA - 09/29/2024 1:09 PM CDT Sanjeev Acevedo CRNA 09/29/2024 2:15 PM Spinal Block Patient location: OR End time: 09/29/2024 12:55 PM Reason for block: primary anesthetic Staff: Placed by: [employer]:Sanjeev Acevedo CRNA Procedure prep: Preprocedure checklist: patient identified, procedure contraindications assessed, procedure consent, surgical consent, IV checked, risks, benefits and alternatives discussed, monitors and equipment checked and timeout performed Patient position: sitting Procedure performed while patient: awake Monitoring: oximetry and blood pressure Prep solution: chlorhexadine/alcohol PPE: provider hat/mask, sterile gloves and sterile drape Skin infiltrated with lidocaine 1%: yes Spinal: Approach: midline Introducer used: no Location: L4-5 Spinal injection: CSF demonstrated, no aspiration of heme and no paresthesias noted Number of attempts: 1 Spinal Needle: Needle type: Genet Needle gauge: 22 G Needle length: 9 cm Assessment: Sensory deficit - left: full eval pending Sensory deficit - right: full eval pending Events: patient tolerated procedure well with no complications Result [facility] Heather Oneal MD ANESTHESIA ORDERABLES Ed ited Result - Final * aPTT (09/29/2024 11:36 AM CDT) aPTT 31 28 - 38 sec [facility] ([place] Comment: Interpretive Data Heparin therapeutic range: 66.0 - 100.0 seconds. Range based on correlation with therapeutic heparin activity range of 0.3 - 0.7 Units/mL. Current interpretive data was last revised on 2022. Blood 09/29/2024 11:3 6 AM CDT 09/29/2024 11:40 AM CDT Result [facility] Thad Fuentes MD LAB BLOOD ORDERABLES Fin al Result Performing Organization Address [facility] de Phone Number [facility] ([place] 1 [facility] [place] [address] * Protime-INR (09/29/2024 11:36 AM CDT) PT 11.6 9.7 - 13.0 sec [facility] ([place]) INR 1.07 0.90 - 1.20 [facility] ([place] Comment: Interpretive data Oral anticoagulant therapeutic ranges: Venous thromboembolism prophylaxis or treatment: 2.0-3.0 CARDIOLOGY Standard range: 2.0-3.0 High-intensity range: 2.5-3.5 Refer to indication-specific guidelines for appropriate target ranges for prosthetic heart valve replacement. Current interpretive data was last revised on 2019. Blood 09/29/2024 11:3 6 AM CDT 09/29/2024 11:40 AM CDT Result [facility] Thad Fuentes MD LAB BLOOD ORDERABLES Fin al Result Performing Organization Address [facility] Co de Phone Number [facility] ([place] 1 [facility] [place] [address] * Surgical pathology (09/29/2024 8:40 AM CDT) Tissue (Bone Fragment(s),) 09/29/2024 2:36 PM CDT Narrative PATHOLOGY [facility] ([place]) - 10/02/2024 10:24 AM CDT EPIC results best viewed via link to PDF [facility] Department of Pathology [address] [place] [id number] Note to Patients: This report may contain a detailed description of human tissue sent by a health care provider to the laboratory for pathologic evaluation. The content of this report is essential for diagnosis and may provide important critical findings. This information may be unfamiliar to patients to review without a medical professional present. It is advised that the patient review this report in the presence of a health care provider who can answer questions and explain the details. Final Report Patient Name: KAHLIL HERNANDEZ Address: [address] [place] [address] , [place] [address]- Gender: F : 1940 (Age: 84) Service: Surgery Location: [facility] Hospital #: [id number] Patient Type: [facility] OP in bed Taken: 09/29/2024 Received: 09/30/2024 Accessioned: 09/30/2024 Reported: 10/02/2024 Physician(s):Dr. Thad Fuentes M.D. Diagnosis: Hip, right bone, total arthroplasty -Degenerative changes -See description Rigo Warner MD PhD Report Electronically Reviewed and Signed Out By Rigo Warner MD PhD 10/02/2024 10:24:07 Specimen(s) Received: A: Right hip bone fragments and tissue Microscopic Description: Sections from the right hip bone specimen show variably thickened trabeculae and focal loss of the overlying cartilage as well as fragmentation of the cartilage. These findings are consistent with degenerative changes. Clinical History: Avascular necrosis of hip, right. Right total hip arthroplasty - anterior approach. Gross Description: Received in a single formalin filled container labeled with KAHLIL HERNANDEZ and right hip bone and fragments of tissue. It is 2 pieces of red-monroe ragged hemorrhagic bone measuring 3.0 and 5.0 cm in greatest dimension and an approximate 6 x 6 x 5 cc aggregate of separate hemorrhagic cortical and cancellous bone fragments. The largest piece appears to be a a markedly deformed and eroded portion of femoral head with consolidation on the cut surfaces and marked degenerative changes. The specimen is decalcified. Represented in 1 cassette. Ike Townsend R.N., P.John./Eleanor Ng M.D. REPORT IMAGES AND SCANNED DOCUMENTS, IF INCLUDED, ONLY VIEWABLE IN PDF VERSION OF REPORT The performance characteristics of some immunohistochemical stains, fluorescence in-situ hybridization tests and immunophenotyping by flow cytometry cited in this report (if any) were determined by the Surgical Pathology Department at [facility] as part of an ongoing quality improvement specialist program and in compliance with federally mandated regulations drawn from the Clinical Laboratory Improvement Act of 1988 (CLIA '88). Some of these tests rely on the use of analyte specific reagents and are subject to specific labeling requirements by the US Food and Drug Administration. Such diagnostic tests may only be performed in a facility that is certified by the Department of Health and Human Services as a high complexity laboratory under CLIA '88. The FDA has determined that such clearance or approval is not necessary. This test is used for clinical purposes. It should not be regarded as investigational or for research. Nevertheless, federal rules concerning the medical use of analyte specific reagents require that the following disclaimer be attached to the report: This test was developed and its performance characteristics determined by the Surgical Pathology Department [facility]. It has not been cleared or approved by the U. S. Food and Drug Administration. Note for decalcified specimens: This assay has not been validated on decalcified tissues. Results should be interpreted with caution given the possibility of false negativity on decalcified specimens us Thad Fuentes MD LAB PATHOLOGY ORDERABLES Final Result PATHOLOGY [facility] ([place]) 1 [place] [address] * eGFR (09/22/2024 5:38 PM CDT) eGFR 88 >=60 mL/min/1. 73 m2 Comment: Interpretive Data Reference Interval Normal >/= 90 mL/min/1.73m2 Mildly decreased* 60 - 89 mL/min/1.73m2 Mildly to moderately decreased 45 - 59 mL/min/1.73m2 Moderately to severely decreased 30 - 44 mL/min/1.73m2 Severely decreased 15 - 29 mL/min/1.73m2 Kidney Failure < 15 mL/min/1.73m2 *Relative to young adult level Estimated glomerular filtration rate is determined by the 2020 CKD-EPI equation recommended by the National Kidney Foundation (A Unifying Approach to GFR Estimation: Recommendations of the NKF-ASK Task Force on Reassessing the Inclusion of Race in Diagnosing Kidney Disease, JASN 2020). The CKD-EPI equation should not be used for patients with unstable renal function and has not been validated in children and those over 70. Current interpretive data was last reviewed 2020. Blood 09/22/2024 5:38 PM CDT 09/22/2024 5:40 PM CDT Johanne VELASCO LAB BLOOD ORDERABLES Dione rush Result [facility] ([place]) 1 [facility] Department of Laboratories [place], [place] [id number] * (ABNORMAL) Differential, auto (09/22/2024 5:38 PM CDT) Neutrophil abs 6.52(H) 1.50 - 6.50 K/cumm Imm gran abs 0.03 0.00 - 0.10 K/cumm [facility] ([place]) Lymphocyte abs 1.86 0.80 - 3.30 K/cumm [facility] ([place]) Monocyte abs 1.02(H) 0.20 - 0.80 K/cumm [facility] ([place]) Eosinophil abs 0.37 0.00 - 0.50 K/cumm [facility] ([place]) Basophil abs 0.04 0.00 - 0.10 K/cumm [facility] ([place]) Neutrophil pct 66.2 % [facility] ([place]) Comment: Interpretive Data Percent cell count reference ranges are not reported, since discordance with absolute values may lead to misinterpretation of CBC data. Current Interpretive Data was last revised on 2017. Imm gran pct 0.3 % [facility] ([place]) Comment: Interpretive Data Percent cell count reference ranges are not reported, since discordance with absolute values may lead to misinterpretation of CBC data. Current Interpretive Data was last revised on 2017. Lymphocyte pct 18.9 % [facility] ([place]) Comment: Interpretive Data Percent cell count reference ranges are not reported, since discordance with absolute values may lead to misinterpretation of CBC data. Current Interpretive Data was last revised on 2017. Monocyte pct 10.4 % [facility] ([place]) Comment: Interpretive Data Percent cell count reference ranges are not reported, since discordance with absolute values may lead to misinterpretation of CBC data. Current Interpretive Data was last revised on 2017. Eosinophil pct 3.8 % [facility] ([place] Comment: Interpretive Data Percent cell count reference ranges are not reported, since discordance with absolute values may lead to misinterpretation of CBC data. Current Interpretive Data was last revised on 2017. Basophil pct 0.4 % [facility] ([place]) Comment: Interpretive Data Percent cell count reference ranges are not reported, since discordance with absolute values may lead to misinterpretation of CBC data. Current Interpretive Data was last revised on 2017. Blood 09/22/2024 5:38 PM CDT 09/22/2024 5:40 PM CDT Johanne VELASCO LAB BLOOD ORDERABLES Dione rush Result [facility] ([place]) 1 [facility] Department [place] [address] * (ABNORMAL) CBC with auto differential (09/22/2024 5:38 PM CDT) WBC 9.84 3.80 - 9.90 K/cumm Hgb 10.8(L) 11.9 - 15.5 g/dL [facility] ([place]) Hct 33.3(L) 35.6 - 45.5 % [facility] ([place]) Plt 226 150 - 400 K/cumm [facility] ([place]) MPV 9.7 9.1 - 12.3 fL [facility] RBC 3.50(L) 3.90 - 5.20 M/cumm [facility] ([place]) MCV 95.1 81.3 - 96.4 fL [facility] ([place]) MCH 30.9 27.1 - 33.3 pg [facility] ([place]) MCHC 32.4 32.3 - 35.7 g/dL [facility] ([place]) RDW CV 14.2 11.1 - 14.9 % [facility] ([place]) RDW SD 49.4(H) 35.7 - 48.1 fL [facility] NRBC abs 0.02(H) 0.00 - 0.01 K/cumm [facility] Blood 09/22/2024 5:38 PM CDT 09/22/2024 5:40 PM CDT Johanne VELASCO LAB BLOOD ORDERABLES Dione rush Result [facility] ([place]) 1 [facility] Department of Laboratories [place] [id number] * (ABNORMAL) Comprehensive metabolic panel (09/22/2024 5:38 PM CDT) Sodium 132(L) 135 - 145 mmol/L [facility] ([place]) Potassium, pl 4.8 3.3 - 4.9 mmol/L [facility] Chloride 96(L) 97 - 110 mmol/L [facility] ([place]) CO2 22 22 - 32 mmol/L [facility] Anion gap 14 2 - 15 mmol/L [facility] ([place]) BUN 21 6 - 25 mg/dL [facility] Creatinine 0.58(L) 0.60 - 1.10 mg/dL [facility] ([place]) Glucose 117 70 - 199 mg/dL [facility] ([place]) Comment: Interpretive Data Fasting glucose >/= 126 mg/dl is diagnostic for diabetes. Fasting is defined as no caloric intake for at least 8 hours. Fasting glucose between 100 mg/dl to 125 mg/dl is diagnostic of prediabetes. In a patient with classic symptoms of hyperglycemia or hyperglycemic crisis, a random glucose >/= 200 mg/dl is diagnostic for diabetes. In the absence of unequivocal hyperglycemia, results should be confirmed by repeat testing. The classification and Diagnosis of Diabetes Diabetes Care 2021; 46: S19-S40. Current interpretive data was last revised 2022. Calcium 9.7 8.5 - 10.3 mg/dL [facility] ([place]) Bilirubin, total 0.3 0.1 - 1.2 mg/dL [facility] ([place]) Protein, pl 7.0 6.5 - 8.5 g/dL [facility] ([place]) Albumin 3.4(L) 3.5 - 5.0 g/dL [facility] ([place]) Alk phos 73 40 - 130 Units/L [facility] ([place]) ALT 11 7 - 45 Units/L [facility] ([place]) Comment:HEMOLYZED; AST 26 10 - 45 Units/L [facility] ([place]) Comment:HEMOLYZED; Blood 09/22/2024 5:38 PM CDT 09/22/2024 5:40 PM CDT Johanne VELASCO LAB BLOOD ORDERABLES Dione rush Result [facility] ([place]) 1 [facility] Department [place] [address] * XR Hip Right 2 or 3 Views W Pelvis (09/22/2024 4:12 PM CDT) Anatomical Region Laterality Modality Lower Extremities, Hip, Pelvis Right C omputed Radiography 09/22/2024 5:20 PM CDT Narrative 09/22/2024 5:22 PM CDT EXAM DESCRIPTION: XR HIP RIGHT 2 OR 3 VIEWS W PELVIS REASON FOR STUDY: fall Best obtainable images due to pt cooperation Brought to room via [facility] c/o fell in bathroom and has rt hip pain. States fall was today. TECHNIQUE: 2 radiographic view(s) of the right hip with one view of the pelvis . COMPARISON: 09/16/2024 FINDINGS: Redemonstrated severe deformity of the right femoral head and superior subluxation. No acute fracture identified. The soft tissues are unremarkable. IMPRESSION: Severe deformity of the right femoral head suggestive of sequela of avascular necrosis, with superior subluxation. No acute fracture identified. THIS IS AN ELECTRONICALLY VERIFIED FINAL REPORT 09/22/2024 5:22 PM - Electronically signed by Barney Gaston M.D. KR: [place] Report ID: [id number] Reading Location: [id number] Procedure Note Barney Gaston MD - 09/22/2024 EXAM DESCRIPTION: XR HIP RIGHT 2 OR 3 VIEWS W PELVIS REASON FOR STUDY: fall Best obtainable images due to pt cooperation Brought to room via [facility]/o fell in bathroom and has rt hip pain. States fall was today. TECHNIQUE: 2 radiographic view(s) of the right hip with one view of the pelvis . COMPARISON: 09/16/2024 FINDINGS: Redemonstrated severe deformity of the right femoral head and superior subluxation. No acute fracture identified. The soft tissues are unremarkable. IMPRESSION: Severe deformity of the right femoral head suggestive of sequela ofavascular necrosis, with superior subluxation. No acute fracture identified. THIS IS AN ELECTRONICALLY VERIFIED FINAL REPORT 09/22/2024 5:22 PM - Electronically signed by Barney Gaston M.D. KR: [place] Report ID: [id number] Reading Location: [id number] Johanne VELASCO IMG XR PROCEDURES Final R esult * eGFR (09/16/2024 12:53 PM CDT) eGFR 72 >=60 mL/min/1. 73 m2 Comment: Interpretive Data Reference Interval Normal >/= 90 mL/min/1.73m2 Mildly decreased* 60 - 89 mL/min/1.73m2 Mildly to moderately decreased 45 - 59 mL/min/1.73m2 Moderately to severely decreased 30 - 44 mL/min/1.73m2 Severely decreased 15 - 29 mL/min/1.73m2 Kidney Failure < 15 mL/min/1.73m2 *Relative to young adult level Estimated glomerular filtration rate is determined by the 2020 CKD-EPI equation recommended by the [employer] (A Unifying Approach to GFR Estimation: Recommendations of the NKF-ASK Task Force on Reassessing the Inclusion of Race in Diagnosing Kidney Disease, JASN 2020). The CKD-EPI equation should not be used for patients with unstable renal function and has not been validated in children and those over 70. Current interpretive data was last reviewed 2020. Blood 09/16/2024 12:5 3 PM CDT 09/16/2024 1:23 PM CDT us Thad Fuentes MD LAB BLOOD ORDERABLES Fin al Result [facility] ([place] Department [place] [address] * (ABNORMAL) Differential, auto (09/16/2024 12:53 PM CDT) Neutrophil abs 8.14(H) 1.50 - 6.50 K/cumm Imm gran abs 0.04 0.00 - 0.10 K/cumm [facility] ([place]) Lymphocyte abs 1.89 0.80 - 3.30 K/cumm [facility] ([place]) Monocyte abs 0.91(H) 0.20 - 0.80 K/cumm [facility] ([place]) Eosinophil abs 0.44 0.00 - 0.50 K/cumm [facility] ([place]) Basophil abs 0.03 0.00 - 0.10 K/cumm [facility] ([place]) Neutrophil pct 71.2 % [facility] ([place]) Comment: Interpretive Data Percent cell count reference ranges are not reported, since discordance with absolute values may lead to misinterpretation of CBC data. Current Interpretive Data was last revised on 2017. Imm gran pct 0.3 % [facility] ([place]) Comment: Interpretive Data Percent cell count reference ranges are not reported, since discordance with absolute values may lead to misinterpretation of CBC data. Current Interpretive Data was last revised on 2017. Lymphocyte pct 16.5 % [facility] ([place] Comment: Interpretive Data Percent cell count reference ranges are not reported, since discordance with absolute values may lead to misinterpretation of CBC data. Current Interpretive Data was last revised on 2017. Monocyte pct 7.9 % [facility] ([place]) Comment: Interpretive Data Percent cell count reference ranges are not reported, since discordance with absolute values may lead to misinterpretation of CBC data. Current Interpretive Data was last revised on 2017. Eosinophil pct 3.8 % [facility] ([place] Comment: Interpretive Data Percent cell count reference ranges are not reported, since discordance with absolute values may lead to misinterpretation of CBC data. Current Interpretive Data was last revised on 2017. Basophil pct 0.3 % [facility] ([place] Comment: Interpretive Data Percent cell count reference ranges are not reported, since discordance with absolute values may lead to misinterpretation of CBC data. Current Interpretive Data was last revised on 2017. Blood 09/16/2024 12:5 3 PM CDT 09/16/2024 1:23 PM CDT us Thad Fuentes MD LAB BLOOD ORDERABLES Fin al Result [facility] ([place]) [facility] Department [place] [address] * (ABNORMAL) CBC with auto differential (09/16/2024 12:53 PM CDT) WBC 11.45(H) 3.80 - 9.90 K/cumm Hgb 10.9(L) 11.9 - 15.5 g/dL [facility] ([place]) Hct 33.7(L) 35.6 - 45.5 % [facility] ([place]) Plt 249 150 - 400 K/cumm [facility] ([place]) MPV 9.9 9.1 - 12.3 fL [facility] ([place]) RBC 3.57(L) 3.90 - 5.20 M/cumm [facility] ([place]) MCV 94.4 81.3 - 96.4 fL [facility] ([place]) MCH 30.5 27.1 - 33.3 pg [facility] ([place]) MCHC 32.3 32.3 - 35.7 g/dL [facility] ([place]) RDW CV 14.3 11.1 - 14.9 % [facility] ([place]) RDW SD 49.1(H) 35.7 - 48.1 fL [facility] ([place]) NRBC abs 0.00 0.00 - 0.01 K/cumm [facility] ([place]) Blood 09/16/2024 12:5 3 PM CDT 09/16/2024 1:23 PM CDT Thad Fuentes MD LAB BLOOD ORDERABLES Fin al Result Performing Organization Address [facility] de Phone Number [facility] ([place]) [address] [place] [address] Department [place] [address] * (ABNORMAL) Hemoglobin A1c (09/16/2024 12:53 PM CDT) Hgb A1C 6.5(H) 4.0 - 5.6 % [facility] ([place]) Estimated Average Glucose 140 mg/dL [facility] ([place]) Comment: The ADA recommends reporting an estimated Average Glucose (eAG) with all Hemoglobin A1c results using the equation derived from a study of 507 normal and diabetic adults. Minority populations were underrepresented and children were not included. (Diabetes Care 31:6237-4207, 2008). The eAG is not equivalent to a fasting glucose. Testing performed by: [facility], [facility], [place], [address] Blood 09/16/2024 12:5 3 PM CDT 09/16/2024 1:23 PM CDT Thad Fuentes MD LAB BLOOD ORDERABLES Fin al Result Performing Organization Address [facility] Co de Phone Number [facility] ([place]) [facility] Department [place] [address] * Comprehensive metabolic panel (09/16/2024 12:53 PM CDT) Sodium 137 135 - 145 mmol/L [facility] ([place]) Potassium, pl 4.6 3.3 - 4.9 mmol/L [facility] ([place]) Chloride 98 97 - 110 mmol/L [facility] ([place]) CO2 26 22 - 32 mmol/L [facility] ([place]) Anion gap 13 2 - 15 mmol/L [facility] [place]) BUN 20 6 - 25 mg/dL [facility] ([place]) Creatinine 0.80 0.60 - 1.10 mg/dL [facility] ([place]) Glucose 103 70 - 199 mg/dL [facility] ([place]) Comment: Interpretive Data Fasting glucose >/= 126 mg/dl is diagnostic for diabetes. Fasting is defined as no caloric intake for at least 8 hours. Fasting glucose between 100 mg/dl to 125 mg/dl is diagnostic of prediabetes. In a patient with classic symptoms of hyperglycemia or hyperglycemic crisis, a random glucose >/= 200 mg/dl is diagnostic for diabetes. In the absence of unequivocal hyperglycemia, results should be confirmed by repeat testing. The classification and Diagnosis of Diabetes Diabetes Care 2021; 46: S19-S40. Current interpretive data was last revised 2022. Calcium 10.0 8.5 - 10.3 mg/dL [facility] ([place]) Bilirubin, total 0.4 0.1 - 1.2 mg/dL [facility] ([place]) Protein, pl 7.1 6.5 - 8.5 g/dL [facility] ([place]) Albumin 3.7 3.5 - 5.0 g/dL [facility] ([place]) Alk phos 82 40 - 130 Units/L [facility] ([place]) ALT 13 7 - 45 Units/L [facility] [place]) AST 18 10 - 45 Units/L [facility] ([place]) Blood 09/16/2024 12:5 3 PM CDT 09/16/2024 1:23 PM CDT us Thad Fuentes MD LAB BLOOD ORDERABLES Fin al Result [facility] [place]) [facility] Department [place] [address] * XR Hip Right 2 or 3 Views (09/16/2024 11:01 AM CDT) Anatomical Region Laterality Modality Lower Extremities, Hip, Pelvis Right D igital Radiography Narrative 09/16/2024 1:37 PM CDT 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 us Thad Fuentes MD IMG XR PROCEDURES Final Result * XR Knee Right 1 or 2 Views (08/05/2024 4:32 PM CDT) Anatomical Region Laterality Modality Lower Extremities, Knee Right Computed Radiography 08/05/2024 8:57 PM CDT Narrative 08/05/2024 9:01 PM CDT EXAM DESCRIPTION: XR HAND RIGHT 3 OR MORE VIEWS; XR HAND LEFT 3 OR MORE VIEWS; XR KNEE RIGHT 1 OR 2 VIEWS REASON FOR STUDY: right hand pain Left hand pain Bilateral pain in both hands x 1 month Pt unable to remove ring on finger ; Knee pain x 3 days s/p fall Pain to right knee after fall three days ago Hx of replacement FINDINGS: Three views each hand and two views right knee submitted without comparison. Left hand: No acute fracture. Polyarticular left hand and wrist osteoarthritis, most severe at the triscaphe and basal thumb joints. Chondrocalcinosis is present. No dorsal wrist soft tissue swelling. Right hand: No acute fracture. Polyarticular right hand and wrist osteoarthritis, most severe at the basal thumb joint osteoarthritis. No dorsal wrist soft tissue swelling. Right knee: No acute fracture. Right knee arthroplasty is in near anatomic alignment. Small knee effusion. Arterial atherosclerosis is present. IMPRESSION: No acute fracture. Polyarticular bilateral hand and wrist osteoarthritis, most severe at the basal thumb joints. Right knee arthroplasty in near anatomic alignment with a small effusion. THIS IS AN ELECTRONICALLY VERIFIED FINAL REPORT 08/05/2024 9:01 PM - Electronically signed by Bear Akhtar M.D. MF: [email or web address] Report ID: [id number] Reading Location: [id number] Procedure Note Bear Akhtar MD - 08/05/2024 EXAM DESCRIPTION: XR HAND RIGHT 3 OR MORE VIEWS; XR HAND LEFT 3 OR MORE VIEWS; XR KNEE RIGHT 1 OR 2 VIEWS REASON FOR STUDY: right hand pain Left hand pain Bilateral pain in both hands x 1 month Pt unable to remove ring on finger; Knee pain x 3 days s/p fall Pain to right knee after fall three days ago Hx of replacement FINDINGS: Three views each hand and two views right knee submitted withoutcomparison. Left hand: No acute fracture. Polyarticular left hand and wrist osteoarthritis, most severe at the triscaphe and basal thumb joints. Chondrocalcinosis ispresent. No dorsal wrist soft tissue swelling. Right hand: No acute fracture. Polyarticular right hand and wrist osteoarthritis,most severe at the basal thumb joint osteoarthritis. No dorsal wrist softtissue swelling. Right knee: No acute fracture. Right knee arthroplasty is in near anatomic alignment. Small knee effusion. Arterial atherosclerosis is present. IMPRESSION: No acute fracture. Polyarticular bilateral hand and wrist osteoarthritis, most severe at the basal thumb joints. Right knee arthroplasty in near anatomic alignment with a smalleffusion. THIS IS AN ELECTRONICALLY VERIFIED FINAL REPORT 08/05/2024 9:01 PM - Electronically signed by Bear Akhtar M.D. MF: [email or web address] Report ID: [id number] Reading Location: [id number] us Isaías Peoples MD IMG XR PROCEDURES F inal Result * XR Hand Right 3 or More Views (08/05/2024 2:33 PM CDT) Anatomical Region Laterality Modality Upper Extremities, Hand Right Computed Radiography 08/05/2024 8:57 PM CDT Narrative 08/05/2024 9:01 PM CDT EXAM DESCRIPTION: XR HAND RIGHT 3 OR MORE VIEWS; XR HAND LEFT 3 OR MORE VIEWS; XR KNEE RIGHT 1 OR 2 VIEWS REASON FOR STUDY: right hand pain Left hand pain Bilateral pain in both hands x 1 month Pt unable to remove ring on finger ; Knee pain x 3 days s/p fall Pain to right knee after fall three days ago Hx of replacement FINDINGS: Three views each hand and two views right knee submitted without comparison. Left hand: No acute fracture. Polyarticular left hand and wrist osteoarthritis, most severe at the triscaphe and basal thumb joints. Chondrocalcinosis is present. No dorsal wrist soft tissue swelling. Right hand: No acute fracture. Polyarticular right hand and wrist osteoarthritis, most severe at the basal thumb joint osteoarthritis. No dorsal wrist soft tissue swelling. Right knee: No acute fracture. Right knee arthroplasty is in near anatomic alignment. Small knee effusion. Arterial atherosclerosis is present. IMPRESSION: No acute fracture. Polyarticular bilateral hand and wrist osteoarthritis, most severe at the basal thumb joints. Right knee arthroplasty in near anatomic alignment with a small effusion. THIS IS AN ELECTRONICALLY VERIFIED FINAL REPORT 08/05/2024 9:01 PM - Electronically signed by Bear Akhtar M.D. MF: [email or web address] Report ID: [id number] Reading Location: [id number] Procedure Note Bear Akhtar MD - 08/05/2024 EXAM DESCRIPTION: XR HAND RIGHT 3 OR MORE VIEWS; XR HAND LEFT 3 OR MORE VIEWS; XR KNEE RIGHT 1 OR 2 VIEWS REASON FOR STUDY: right hand pain Left hand pain Bilateral pain in both hands x 1 month Pt unable to remove ring on finger; Knee pain x 3 days s/p fall Pain to right knee after fall three days ago Hx of replacement FINDINGS: Three views each hand and two views right knee submitted withoutcomparison. Left hand: No acute fracture. Polyarticular left hand and wrist osteoarthritis, most severe at the triscaphe and basal thumb joints. Chondrocalcinosis ispresent. No dorsal wrist soft tissue swelling. Right hand: No acute fracture. Polyarticular right hand and wrist osteoarthritis,most severe at the basal thumb joint osteoarthritis. No dorsal wrist softtissue swelling. Right knee: No acute fracture. Right knee arthroplasty is in near anatomic alignment. Small knee effusion. Arterial atherosclerosis is present. IMPRESSION: No acute fracture. Polyarticular bilateral hand and wrist osteoarthritis, most severe at the basal thumb joints. Right knee arthroplasty in near anatomic alignment with a smalleffusion. THIS IS AN ELECTRONICALLY VERIFIED FINAL REPORT 08/05/2024 9:01 PM - Electronically signed by Bear OCASIO: NINFA Report ID: [id number] Reading Location: [id number] [facility] IMG XR PROCEDURES Final Result * XR Hand Left 3 or More Views (08/05/2024 2:33 PM CDT) Anatomical Region Laterality Modality Upper Extremities, Hand Left Computed Radiography 08/05/2024 8:57 PM CDT Narrative 08/05/2024 9:01 PM CDT EXAM DESCRIPTION: XR HAND RIGHT 3 OR MORE VIEWS; XR HAND LEFT 3 OR MORE VIEWS; XR KNEE RIGHT 1 OR 2 VIEWS REASON FOR STUDY: right hand pain Left hand pain Bilateral pain in both hands x 1 month Pt unable to remove ring on finger ; Knee pain x 3 days s/p fall Pain to right knee after fall three days ago Hx of replacement FINDINGS: Three views each hand and two views right knee submitted without comparison. Left hand: No acute fracture. Polyarticular left hand and wrist osteoarthritis, most severe at the triscaphe and basal thumb joints. Chondrocalcinosis is present. No dorsal wrist soft tissue swelling. Right hand: No acute fracture. Polyarticular right hand and wrist osteoarthritis, most severe at the basal thumb joint osteoarthritis. No dorsal wrist soft tissue swelling. Right knee: No acute fracture. Right knee arthroplasty is in near anatomic alignment. Small knee effusion. Arterial atherosclerosis is present. IMPRESSION: No acute fracture. Polyarticular bilateral hand and wrist osteoarthritis, most severe at the basal thumb joints. Right knee arthroplasty in near anatomic alignment with a small effusion. THIS IS AN ELECTRONICALLY VERIFIED FINAL REPORT 08/05/2024 9:01 PM - Electronically signed by Bear OCASIO: NINFA Report ID: [id number] Reading Location: [id number] Procedure Note Bear Akhtar MD - 08/05/2024 EXAM DESCRIPTION: XR HAND RIGHT 3 OR MORE VIEWS; XR HAND LEFT 3 OR MORE VIEWS; XR KNEE RIGHT 1 OR 2 VIEWS REASON FOR STUDY: right hand pain Left hand pain Bilateral pain in both hands x 1 month Pt unable to remove ring on finger; Knee pain x 3 days s/p fall Pain to right knee after fall three days ago Hx of replacement FINDINGS: Three views each hand and two views right knee submitted withoutcomparison. Left hand: No acute fracture. Polyarticular left hand and wrist osteoarthritis, most severe at the triscaphe and basal thumb joints. Chondrocalcinosis ispresent. No dorsal wrist soft tissue swelling. Right hand: No acute fracture. Polyarticular right hand and wrist osteoarthritis,most severe at the basal thumb joint osteoarthritis. No dorsal wrist softtissue swelling. Right knee: No acute fracture. Right knee arthroplasty is in near anatomic alignment. Small knee effusion. Arterial atherosclerosis is present. IMPRESSION: No acute fracture. Polyarticular bilateral hand and wrist osteoarthritis, most severe at the basal thumb joints. Right knee arthroplasty in near anatomic alignment with a smalleffusion. THIS IS AN ELECTRONICALLY VERIFIED FINAL REPORT 08/05/2024 9:01 PM - Electronically signed by Bear Akhtar M.D. MF: [email or web address] Report ID: [id number] Reading Location: [id number] [place] [facility] IMRamonita XR PROCEDURES Final Result * Dexa Axial Skeleton Bone Density 1 or 2 Site (01/06/2021 3:16 PM [facility]) Anatomical Region Laterality Modality Body N/A Digital Radiogra phy 01/06/2021 3:56 PM [facility] Impressions 01/06/2021 3:56 PM [facility] BMD near the young adult mean. Based on BMD alone, there is no increased risk of fragility fracture. If followup is to be done, for technical reasons, it should be performed on this same machine. Electronically signed by: Sukhi Avalos M.D. Narrative 01/06/2021 3:56 PM [facility] EXAM: Bone mineral density examination HISTORY: Postmenopausal. Calcium and vitamin D supplementation. Assess for osteoporosis. DXA BMD was done at [facility] on a [employer] [employer] W. Precision testing at this site has resulted in a least significant change of: Lumbar spine: 0.033 g/sq cm Total Hip: 0.027 g/sq cm Femoral Neck: 0.035 g/sq cm BMD L1-L4 is 1.220 g/sq cm corresponding to a T score of 1.6. BMD left femoral neck is 0.768 g/sq cm corresponding to a T score of -0.7. BMD total left hip is 0.888 g/sq cm corresponding to a T score of -0.4. The 10-year fracture risk for major osteoporotic fracture: Not calculated. The 10-year fracture risk for hip fracture: Not calculated. COMPARISON: None. Procedure Note Sukhi Avalos MD - 01/06/2021 EXAM: Bone mineral density examination HISTORY: Postmenopausal. Calcium and vitamin D supplementation. Assess for osteoporosis. DXA BMD was done at [facility] on a [employer]ologic [employer] W. Precision testing at this site has resulted in a least significant change of: Lumbar spine: 0.033 g/sq cm Total Hip: 0.027 g/sq cm Femoral Neck: 0.035 g/sq cm BMD L1-L4 is 1.220 g/sq cm corresponding to a T score of 1.6. BMD left femoral neck is 0.768 g/sq cm corresponding to a T score of -0.7. BMD total left hip is 0.888 g/sq cm corresponding to a T score of -0.4. The 10-year fracture risk for major osteoporotic fracture: Not calculated. The 10-year fracture risk for hip fracture: Not calculated. COMPARISON: None. IMPRESSION: BMD near the young adult mean. Based on BMD alone, there is no increased risk of fragility fracture. If followup is to be done, for technical reasons, it should be performed on this same machine. Electronically signed by: Sukhi Avalos M.D. [employer] SLEEP MANAGER IMG DXA PROCEDURES Final R esult from Last 3 Months or Most Recently Relevant to Health Maintenance Additional Health Concerns Active Problems Noted Date Diagnosed Date Autogenerated Problem 09/30/2024 Insurance [facility] Advance Directives For more information, please contact: [phone] * Full Code (Latest Code Status on File) Date Activated Date Inactivated Comments 09/29/2024 4:36 PM 10/01/2024 4:32 PM Care Teams Tube Heater Relationship Specialty Start Date End Date Isaías Peoples MD [address] [facility] [address] [place] [address] PCP - General Family Practice 04/14/24 Thad Fuentes MD [address] [facility] [facility] [address] [place] [address] Surgeon Orthopedic Surgery 09/30/24 Scarlett Gibbons RN [address] [place] [address] [address] [place] [address] Sheet Cutter 10/28/24
== END 2024-11-04 11:11 | disposition home or self-care (01) ==
PROVIDERS: Visit Provider Family Medicine
DX: R30.0 Dysuria (principal)
CPT/HCPCS: 81001; 87086

== ENCOUNTER 2025-02-22 17:33 | Emergency (ER) | payer OTHER, SELFPAY ==
--- NOTE | ~2025-02-22 | XR_ITS ---
EXAMINATION: XR chest 2V DATE: 02/22/2025 18:05 INDICATION: Cough. TECHNIQUE: Frontal and lateral views of the chest were obtained. COMPARISON: None previous available. FINDINGS: Mild cardiomegaly. Significant atherosclerotic aorta. Likely chronic interstitial fibrosis of both lungs. Superimpose congestion of lung bases is suspected with blunting of costophrenic angle on both sides. IMPRESSION: 1. Cardiomegaly and atherosclerotic aorta. 2. Diffusely increased reticular nodular interstitial pattern suggests probable chronic interstitial fibrosis. Superimpose mild congestive heart failure is suggested with blunting of costophrenic angles. Please correlate with lab results including BNP. Reviewed, dictated and finalized at location [facility] IMPRESSION: 1. Cardiomegaly and atherosclerotic aorta. 2. Diffusely increased reticular nodular interstitial pattern suggests probable chronic interstitial fibrosis. Superimpose mild congestive heart failure is donald ggested with blunting of costophrenic angles. Please correlate with lab results including BNP.
--- OUTSIDE RECORDS SUMMARY | 2025-02-22 17:36 | XMS_ITS ---
Author Name Auto Generated, Auto Generated Organization [employer] [facility] ices Address [address] [place] [address] Care Team Providers Care Medical Biller Coder Name Role Phone Kylee Macias Primary Physician [phone] Malia Hitchcock Nurse Practitioner Allergies and Intolerances Name Onset Reaction Severity fentanyl 2024-10-01 17:27:00 morphine 2024-10-01 17:27:00 penicillin 2024-10-01 17:27:00 Sulfa (Sulfonamide Antibiotics) 2024-10-01 17:27:00 tramadol 2024-10-01 17:27:00 cefazolin 2024-10-01 17:26:00 cephalexin 2024-10-01 17:26:00 Care Team Name Role NPI Start Date Kylee Macias Primary Physician [phone] [id number] 00:00:00 Malia Hitchcock Nurse Practitioner [phone] 2024 00:00:00 Encounters Admissions Program Name Primary Diagnosis Admission Date Discharg e Date [facility] 2024-10-01 12:30:00 2024-10-26 17:15:00 Goals Goal Date Arina will be understood by staff and karly putnam will be met. 2024-10-09 00:00:00 Arina will discharge back to home in the community. 2024-10-09 00:00:00 Arina will continue ordered t herapy to attempt to return to prior level. 2024-10-09 00:00:00 Continue the relationship between Arina a nd support system. 2024-10-09 00:00:00 Assist family/friends with continuing th e caregiver role. 2024-10-09 00:00:00 Arina will participate in decision making with ADLs. 2024-10-09 00:00:00 Arina will remain as independent as ezra gregorio. 2024-10-09 00:00:00 Arina will be involved in the discharge p vladimir process. 2024-10-09 00:00:00 Arina will attend his or her own person centered care plan meeting as tolerated. 2024-10-09 00:00:00 Arina is Full Code. 2024-10-09 00:00:00 Arina will not develop any co mplications related to decreased ADL self-performance thru next review. 2024-10-14 00:00:00 Arina will maintain ADL self- performance levels as evidenced by no decline in stated level thru next review. 2024-10-14 00:00:00 Arina will have increase in A DL independence by participating in therapy thru next review. 2024-10-14 00:00:00 Arina will have no alteration in skin int egrity thru next review. 2024-10-14 00:00:00 Arina will achieve an accepta ble level of pain control (pain scale of____and below) or verbalize relief after taking pain meds as ordered within 1 to 2 hour(s) of interventions. Optimize pain management to maximize relief/comfort. 2024-10-14 00:00:00 Arina will achieve an accepta ble level of pain control thru next review. 2024-10-14 00:00:00 Arina will not sustain a fall related injury by utilizing fall precautions through next review. 2024-10-14 00:00:00 Arina will receive the least dosage of the prescribed psychotropic drug(s) to ensure maximum functional ability both mentally and physically thru next review. 2024-10-14 00:00:00 Arina will be free from s/s o f drug-related: hypotension, gait disturbance, cognitive impairment, behavioral impairment, ADL decline, decline in appetite, abnormal involuntary movement thru next review. 2024-10-14 00:00:00 Arina will demonstrate compliance with [facility] diet. 2024-10-09 00:00:00 Immunizations Name Date Status TST-PPD intradermal 2024-10-02 05:00:00 Complete d TST-PPD intradermal 2024-10-04 05:00:00 Complete d Medications Medication Instructions Start Date End Date acetaminophen 500 mg tablet 2 tablets TA BLET Oral PRN Every 6 Hours Indication: pain 2024-10-01 17:00:00 2024-10-01 20:05:00 ascorbic acid (vitamin C) 500 mg chewable tablet 1 tablet TABLET,CHEWABLE Oral 1 Time Daily Indication: Deficiency 2024-10-01 17:00:00 2024-10-26 05:00:00 aspirin 81 mg tablet,delayed release 1 tablet TABLET, DELAYED RELEASE (ENTERIC COATED) Oral 2 Times Daily Indication: DVT prophylaxis 2024-10-01 17:00:00 2024-10-06 20:05:00 celecoxib 200 mg capsule 1 capsule CAPSU LE Oral PRN Every 12 Hours Indication: pain 2024-10-01 17:00:00 2024-10-26 05:00:00 DULoxetine 30 mg capsule,delayed release 1 capsule CAPSULE,DELAYED RELEASE (ENTERIC COATED) Oral 1 Time Daily Indication: depression 2024-10-01 17:00:00 2024-10-01 20:17:00 ezetimibe 10 mg tablet 1 tablet TABLET O ral 1 Time Daily Indication: Hyperlipidemia 2024-10-01 17:00:00 2024-10-26 05:00:00 ferrous sulfate 325 mg (65 mg iron) tablet,delayed release 1 tablet TABLET, DELAYED RELEASE (ENTERIC COATED) Oral 1 Time Daily Indication: anemia 2024-10-01 17:00:00 2024-10-03 21:11:00 hydrocortisone 1 % topical cream as directed CREAM (GRAM) Topical PRN Indication: rash 2024-10-01 17:00:00 2024-10-26 05:00:00 lisinopriL 5 mg tablet 1 tablet TABLET O ral 1 Time Daily Indication: HTN 2024-10-01 17:00:00 2024-10-01 20:18:00 polyethylene glycoL 3350 17 gram/dose oral powder 1 dose POWDER (GRAM) Oral 1 Time Daily Indication: constipation 2024-10-01 17:00:00 2024-10-26 05:00:00 Glucerna Shake oral liquid 1 dose LIQUID (ML) Oral 2 Times Daily Indication: nutrition supplement 2024-10-01 17:00:00 2024-10-01 22:29:00 TubersoL 5 tub. unit/0.1 mL intradermal injection solution 0.1 Milliliter VIAL (ML) Intradermal 1 Time Daily for 1 Day Indication: new admit 1 Step PPD- Read between 48 and 72 hours 2024-10-02 07:30:00 2024-10-02 12:48:00 TubersoL 5 tub. unit/0.1 mL intradermal injection solution 1 Application VIAL (ML) Other 1 Time Daily for 1 Day Indication: New admit Read results between 48-72 hours after 1st and 2nd (1 week apart). Any reading of 10mm or greater results in a positive test, an x-ray will need to be ordered as a follow up. 2024-10-04 11:00:00 2024-10-05 10:59:00 omeprazole 40 mg capsule,delayed release 1 capsule CAPSULE,DELAYED RELEASE (ENTERIC COATED) Oral 1 Time Daily Indication: GERD 2024-10-01 17:00:00 2024-10-26 05:00:00 ondansetron 4 mg disintegrating tablet 1 tablet TABLET,DISINTEGRATING Oral PRN Every 6 Hours Indication: nausea and vomiting 2024-10-01 17:00:00 2024-10-26 05:00:00 rosuvastatin 40 mg tablet 1 tablet TABLE T Oral 1 Time Daily Indication: Hyperlipidemia 2024-10-01 17:00:00 2024-10-26 05:00:00 Stimulant Laxative Plus 8.6 mg-50 mg tablet 2 tablets TABLET Oral 2 Times Daily Indication: Constipation 2024-10-01 17:00:00 2024-10-01 20:19:00 acetaminophen 500 mg tablet 2 tablets TA BLET Oral PRN Every 6 Hours Indication: painDo not exceed 3grams/24 hours 2024-10-01 20:04:00 2024-10-02 10:28:00 DULoxetine 30 mg capsule,delayed release 1 capsule CAPSULE,DELAYED RELEASE (ENTERIC COATED) Oral 1 Time Daily Indication: depression 2024-10-01 20:15:00 2024-10-26 05:00:00 lisinopriL 5 mg tablet 1 tablet TABLET O ral 1 Time Daily BP and/or Pulse Hold: Systolic Blood Pressure < 100 Hold;Vitals (Diastolic Blood Pressure) < 50 Hold;. Indication: HTN 2024-10-01 20:17:00 2024-10-26 05:00:00 Stimulant Laxative Plus 8.6 mg-50 mg tablet 2 tablets TABLET Oral 1 Time Daily Indication: Constipation 2024-10-01 20:18:00 2024-10-26 05:00:00 acetaminophen 500 mg tablet 2 tablets TA BLET Oral 3 Times Daily Indication: painDo not exceed 3grams/24 hours 2024-10-02 11:00:00 2024-10-26 05:00:00 TubersoL 5 tub. unit/0.1 mL intradermal injection solution 0.1 Milliliter VIAL (ML) Intradermal 1 Time Daily for 1 Day Indication: new admit 1 Step PPD- Read between 48 and 72 hours 2024-10-02 12:48:00 2024-10-03 12:47:00 Ferric x-150 150 mg iron capsule 1 cap CAPSULE Oral 2 Times Daily Indication: anemia 2024-10-04 13:00:00 2024-10-26 05:00:00 cholecalciferol (vitamin D3) 25 mcg (1,000 unit) tablet 1 tab TABLET Oral 1 Time Daily Indication: supplement 2024-10-04 13:00:00 2024-10-26 05:00:00 aspirin 81 mg tablet,delayed release 1 tablet TABLET, DELAYED RELEASE (ENTERIC COATED) Oral 2 Times Daily for 35 Days Indication: DVT prophylaxis 2024-10-06 19:00:00 2024-10-26 05:00:00 Problems Active Concerns Problem Code Start Date End Date Text 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 2024-10-01 00:00:00 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 2024-10-01 00:00:00 Presence of artificial knee joint, bilateral Presence of artificial knee joint, bilateral 2024-10-01 00:00:00 Constipation, unspecified Constipation, unspecified 2024-10-01 00:00:00 2024-10-01 00:00:00 Essential (primary) hypertension Essential (primary) hypertension 2024-10-01 00:00:00 Iron deficiency anemia, unspecified Iron deficiency anemia, unspecified 2024-10-01 00:00:00 Heartburn Heartburn 2024-10-01 00:00:00 2024-10-02 00:00:00 Hyperlipidemia, unspecified Hyperlipidemia, unspecified 2024-10-01 00:00:00 nursing home (current) use of aspirin nursing home (current) use of aspirin 2024-10-01 00:00:00 Rash and other nonspecific skin eruption Rash and other nonspecific skin eruption 2024-10-01 00:00:00 Depression, unspecified Depression, unspecified 2024-10-01 00:00:00 2024-10-06 00:00:00 Gastro-esophageal reflux disease without esophagitis Gastro-esophageal reflux disease without esophagitis 2024-10-01 00:00:00 Major depressive disorder, single episode, mild Major depressive disorder, single episode, mild 2024-10-01 00:00:00 Generalized anxiety disorder Generalized anxiety disorder 2024-10-01 00:00:00 Acute posthemorrhagic anemia Acute posthemorrhagic anemia 2024-10-01 00:00:00 Slow transit constipation Slow transit constipation 2024-10-01 00:00:00 Disorientation, unspecified Disorientation, unspecified 2024-10-01 00:00:00 Localized edema Localized edema 2024-10-06 00:00:00 Repeated falls Repeated falls 2024-10-03 00:00:00 Other malaise Other malaise 2024-10-01 00:00:00 [id number] Arina receives a therapeutic diet. (12) 2024-10-09 00:00:00 [id number] Arina receives a therapeutic diet. (12) LSS_Psychotropic Drug Use - Use of psychotropic drug use places Arina at risk for drug-related side effects. 2024-10-14 00:00:00 LSS_Psychotropic Drug Use - Use of psychotropic drug use places Arina at risk for drug-related side effects. LSS_Falls - Arina is at risk for falls/injury as evidenced by: history of falls, cognitive status/behavior, vision status, continence, mobility, balance. 2024-10-14 00:00:00 LSS_Falls - Arina is at risk for falls/injury as evidenced by: history of falls, cognitive status/behavior, vision status, continence, mobility, balance. LSS_Pain - Arina is experiencing pain or is at high risk for pain. 2024-10-14 00:00:00 LSS_Pain - Arina is experiencing pain or is at high risk for pain. LSS_Skin Integrity - (Potential Alteration of)- Arina is at risk for developing impaired skin integrity. 2024-10-14 00:00:00 LSS_Skin Integrity - (Potential Alteration of)- Arina is at risk for developing impaired skin integrity. LSS_ADLs - Arina has ADL selfcare deficit related to decreased mobility and muscle weakness 2024-10-14 00:00:00 LSS_ADLs - Arina has ADL selfcare deficit related to decreased mobility and muscle weakness [id number] Arina is taking antidepressant drug(s) 2024-10-14 00:00:00 [id number] Arina is taking antidepressant drug(s) LSS_Social Services- Arina's wishes will be followed (Advanced Directive/Code Status). 2024-10-09 00:00:00 LSS_Social Services- Arina's wishes will be followed (Advanced Directive/Code Status). LSS_Social Services- Arina will be involved in goal development to the best of his or her ability. 2024-10-09 00:00:00 LSS_Social Services- Arina will be involved in goal development to the best of his or her ability. LSS_Social Services- Arina has impaired cognition. 2024-10-09 00:00:00 LSS_Social Services- Arina has impaired cognition. LSS_Social Services- Arina has family/friends who are supportive. 2024-10-09 00:00:00 LSS_Social Services- Arina has family/friends who are supportive. LSS_Social Services- Arina's mobility level is different than prior level due to current medical condition. 2024-10-09 00:00:00 LSS_Social Services- Arina's mobility level is different than prior level due to current medical condition. LSS_Social Services- Arina will be involved in discharge planning. 2024-10-09 00:00:00 LSS_Social Services- Arina will be involved in discharge planning. LSS_Social Services- Arina's primary language is Irish. She also speaks Setswana and understands it but may revert back to Irish when she is talking with you. 2024-10-09 00:00:00 LSS_Social Services- Arina's primary language is Irish. She also speaks Setswana and understands it but may revert back to Irish when she is talking with you. Social History Observation Description Date Sex Female 1940 00:00 :00 Sex Female Treatment Plan Goals Goal Date Arina will be understood by staff and karly ds will be met. 2024-10-09 00:00:00 Arina will discharge back to home in the community. 2024-10-09 00:00:00 Arina will continue ordered t herapy to attempt to return to prior level. 2024-10-09 00:00:00 Continue the relationship between Arina a nd support system. 2024-10-09 00:00:00 Assist family/friends with continuing th e caregiver role. 2024-10-09 00:00:00 Arina will participate in decision making with ADLs. 2024-10-09 00:00:00 Arina will remain as independent as ezra gregorio. 2024-10-09 00:00:00 Arina will be involved in the discharge p vladimir process. 2024-10-09 00:00:00 Arina will attend his or her own person centered care plan meeting as tolerated. 2024-10-09 00:00:00 Arina is Full Code. 2024-10-09 00:00:00 Arina will not develop any co mplications related to decreased ADL self-performance thru next review. 2024-10-14 00:00:00 Arina will maintain ADL self- performance levels as evidenced by no decline in stated level thru next review. 2024-10-14 00:00:00 Arina will have increase in A DL independence by participating in therapy thru next review. 2024-10-14 00:00:00 Arina will have no alteration in skin int egrity thru next review. 2024-10-14 00:00:00 Arina will achieve an accepta ble level of pain control (pain scale of____and below) or verbalize relief after taking pain meds as ordered within 1 to 2 hour(s) of interventions. Optimize pain management to maximize relief/comfort. 2024-10-14 00:00:00 Arina will achieve an accepta ble level of pain control thru next review. 2024-10-14 00:00:00 Arina will not sustain a fall related injury by utilizing fall precautions through next review. 2024-10-14 00:00:00 Arina will receive the least dosage of the prescribed psychotropic drug(s) to ensure maximum functional ability both mentally and physically thru next review. 2024-10-14 00:00:00 Arina will be free from s/s o f drug-related: hypotension, gait disturbance, cognitive impairment, behavioral impairment, ADL decline, decline in appetite, abnormal involuntary movement thru next review. 2024-10-14 00:00:00 Arina will demonstrate compliance with ca rdiac diet. 2024-10-09 00:00:00 Vital Signs Vital Sign Measurement Date Systolic blood pressure 150.0 mm[Hg] 12:50:25 Diastolic blood pressure 68.0 mm[Hg] 2024-09 12:50:25 Pulse Oximetry 94.0 % 2024-10-26 12:50 :25 Respiratory rate 18.0 /min 2024-10-26 17:5 0:25 Body weight 165.1 [lb_av] 2024-10-26 17:50 :25 Body temperature 98.3 [degF] 2024-10-26 17:5 0:25 Heart Rate 83.0 /min 2024-10-26 17:50 :25 Systolic blood pressure 150.0 mm[Hg] 07:26:22 Diastolic blood pressure 68.0 mm[Hg] 2024-09 07:26:22 Systolic blood pressure 160.0 mm[Hg] 23:06:49 Diastolic blood pressure 65.0 mm[Hg] 2024-09 23:06:49 Pulse Oximetry 90.0 % 2024-10-25 23:06 :49 Respiratory rate 18.0 /min 2024-10-26 04:0 6:49 Body temperature 98.0 [degF] 2024-10-26 04:0 6:49 Heart Rate 96.0 /min 2024-10-26 04:06 :49 Body weight 165.4 [lb_av] 2024-10-25 15:46 :50 Systolic blood pressure 154.0 mm[Hg] 08:59:07 Diastolic blood pressure 66.0 mm[Hg] 2024-09 08:59:07 Systolic blood pressure 154.0 mm[Hg] 07:42:48 Diastolic blood pressure 66.0 mm[Hg] 2024-09 07:42:48 Pulse Oximetry 93.0 % 2024-10-25 07:42 :48 Respiratory rate 20.0 /min 2024-10-25 12:4 2:48 Body temperature 97.8 [degF] 2024-10-25 12:4 2:48 Heart Rate 91.0 /min 2024-10-25 12:42 :48 Systolic blood pressure 147.0 mm[Hg] 01:29:05 Diastolic blood pressure 50.0 mm[Hg] 2024-09 01:29:05 Pulse Oximetry 96.0 % 2024-10-25 01:29 :05 Respiratory rate 20.0 /min 2024-10-25 06:2 9:05 Body temperature 98.3 [degF] 2024-10-25 06:2 9:05 Heart Rate 84.0 /min 2024-10-25 06:29 :05 Systolic blood pressure 128.0 mm[Hg] 08:02:03 Diastolic blood pressure 74.0 mm[Hg] 2024-09 08:02:03 Pulse Oximetry 95.0 % 2024-10-24 08:02 :03 Respiratory rate 16.0 /min 2024-10-24 13:0 2:03 Body temperature 97.8 [degF] 2024-10-24 13:0 2:03 Heart Rate 72.0 /min 2024-10-24 13:02 :03 Systolic blood pressure 128.0 mm[Hg] 08:01:08 Diastolic blood pressure 74.0 mm[Hg] 2024-09 08:01:08 Systolic blood pressure 128.0 mm[Hg] 06:16:32 Diastolic blood pressure 74.0 mm[Hg] 2024-09 06:16:32 Pulse Oximetry 95.0 % 2024-10-24 06:16 :32 Respiratory rate 16.0 /min 2024-10-24 11:1 6:32 Body temperature 97.8 [degF] 2024-10-24 11:1 6:32 Heart Rate 72.0 /min 2024-10-24 11:16 :32 Systolic blood pressure 115.0 mm[Hg] 21:21:26 Diastolic blood pressure 57.0 mm[Hg] 2024-09 21:21:26 Pulse Oximetry 96.0 % 2024-10-23 21:21 :26 Respiratory rate 18.0 /min 2024-10-24 02:2 1:26 Body temperature 97.3 [degF] 2024-10-24 02:2 1: Heart Rate 78.0 /min 2024-10-24 02:21 :26 Body weight 165.8 [lb_av] 2024-10-23 19:50 :43 Systolic blood pressure 152.0 mm[Hg] 10:41:23 Diastolic blood pressure 66.0 mm[Hg] 2024-09 10:41:23 Pulse Oximetry 95.0 % 2024-10-23 10:41 :23 Respiratory rate 18.0 /min 2024-10-23 15:4 1:23 Body temperature 98.2 [degF] 2024-10-23 15:4 1:23 Heart Rate 95.0 /min 2024-10-23 15:41 :23 Systolic blood pressure 152.0 mm[Hg] 08:55:41 Diastolic blood pressure 66.0 mm[Hg] 2024-09 08:55:41 Systolic blood pressure 152.0 mm[Hg] 06:23:00 Diastolic blood pressure 66.0 mm[Hg] 2024-09 06:23:00 Pulse Oximetry 93.0 % 2024-10-23 06:23 :00 Respiratory rate 18.0 /min 2024-10-23 11:2 3:00 Body temperature 98.2 [degF] 2024-10-23 11:2 3:00 Heart Rate 95.0 /min 2024-10-23 11:23 :00 Systolic blood pressure 157.0 mm[Hg] 23:40:12 Diastolic blood pressure 59.0 mm[Hg] 2024-09 23:40:12 Pulse Oximetry 94.0 % 2024-10-22 23:40 :12 Respiratory rate 20.0 /min 2024-10-23 04:4 0:12 Body temperature 98.3 [degF] 2024-10-23 04:4 0:12 Heart Rate 89.0 /min 2024-10-23 04:40 :12 Body weight 165.8 [lb_av] 2024-10-22 17:50 :48 Systolic blood pressure 105.0 mm[Hg] 08:44:39 Diastolic blood pressure 46.0 mm[Hg] 2024-09 08:44:39 Systolic blood pressure 105.0 mm[Hg] 08:27:58 Diastolic blood pressure 46.0 mm[Hg] 2024-09 08:27:58 Pulse Oximetry 96.0 % 2024-10-22 08:27 :58 Respiratory rate 20.0 /min 2024-10-22 13:2 7:58 Body temperature 98.2 [degF] 2024-10-22 13:2 7:58 Heart Rate 88.0 /min 2024-10-22 13:27 :58 Systolic blood pressure 111.0 mm[Hg] 22:45:47 Diastolic blood pressure 64.0 mm[Hg] 2024-09 22:45:47 Pulse Oximetry 97.0 % 2024-10-21 22:45 :47 Respiratory rate 18.0 /min 2024-10-22 03:4 5:47 Body temperature 98.5 [degF] 2024-10-22 03:4 5:47 Heart Rate 89.0 /min 2024-10-22 03:45 :47 Body weight 164.0 [lb_av] 2024-10-21 15:27 :58 Systolic blood pressure 147.0 mm[Hg] 07:30:32 Diastolic blood pressure 83.0 mm[Hg] 2024-09 07:30:32 Systolic blood pressure 147.0 mm[Hg] 07:29:11 Diastolic blood pressure 83.0 mm[Hg] 2024-09 07:29:11 Pulse Oximetry 97.0 % 2024-10-21 07:29 :11 Respiratory rate 20.0 /min 2024-10-21 12:2 9:11 Body temperature 98.0 [degF] 2024-10-21 12:2 9:11 Heart Rate 88.0 /min 2024-10-21 12:29 :11 Systolic blood pressure 143.0 mm[Hg] 22:25:57 Diastolic blood pressure 57.0 mm[Hg] 2024-09 22:25:57 Pulse Oximetry 97.0 % 2024-10-20 22:25 :57 Respiratory rate 18.0 /min 2024-10-21 03:2 5:57 Body temperature 98.2 [degF] 2024-10-21 03:2 5:57 Heart Rate 74.0 /min 2024-10-21 03:25 :57 Systolic blood pressure 171.0 mm[Hg] 13:55:46 Diastolic blood pressure 83.0 mm[Hg] 2024-09 13:55:46 Pulse Oximetry 96.0 % 2024-10-20 13:55 :46 Body weight 165.0 [lb_av] 2024-10-20 18:55 :46 Respiratory rate 20.0 /min 2024-10-20 18:5 5:46 Body temperature 97.6 [degF] 2024-10-20 18:5 5:46 Heart Rate 80.0 /min 2024-10-20 18:55 :46 Systolic blood pressure 171.0 mm[Hg] 08:52:43 Diastolic blood pressure 83.0 mm[Hg] 2024-09 08:52:43 Systolic blood pressure 117.0 mm[Hg] 20:04:49 Diastolic blood pressure 69.0 mm[Hg] 2024-09 20:04:49 Pulse Oximetry 98.0 % 2024-10-19 20:04 :49 Respiratory rate 18.0 /min 2024-10-20 01:0 4:49 Body temperature 97.4 [degF] 2024-10-20 01:0 4:49 Heart Rate 75.0 /min 2024-10-20 01:04 :49 Body weight 163.4 [lb_av] 2024-10-19 21:12 :50 Systolic blood pressure 154.0 mm[Hg] 09:23:52 Diastolic blood pressure 71.0 mm[Hg] 2024-09 09:23:52 Systolic blood pressure 154.0 mm[Hg] 09:23:52 Diastolic blood pressure 71.0 mm[Hg] 2024-09 09:23:52 Pulse Oximetry 95.0 % 2024-10-19 09:23 :52 Respiratory rate 18.0 /min 2024-10-19 14:2 3:52 Body temperature 97.8 [degF] 2024-10-19 14:2 3:52 Heart Rate 66.0 /min 2024-10-19 14:23 :52 Systolic blood pressure 157.0 mm[Hg] 20:40:31 Diastolic blood pressure 55.0 mm[Hg] 2024-09 20:40:31 Pulse Oximetry 97.0 % 2024-10-18 20:40 :31 Respiratory rate 18.0 /min 2024-10-19 01:4 0:31 Body temperature 97.8 [degF] 2024-10-19 01:4 0:31 Heart Rate 79.0 /min 2024-10-19 01:40 :31 Body weight 162.8 [lb_av] 2024-10-18 21:13 :29 Systolic blood pressure 138.0 mm[Hg] 09:06:22 Diastolic blood pressure 57.0 mm[Hg] 2024-09 09:06:22 Systolic blood pressure 138.0 mm[Hg] 09:06:22 Diastolic blood pressure 57.0 mm[Hg] 2024-09 09:06:22 Pulse Oximetry 96.0 % 2024-10-18 09:06 :22 Respiratory rate 20.0 /min 2024-10-18 14:0 6:22 Body temperature 98.2 [degF] 2024-10-18 14:0 6:22 Heart Rate 79.0 /min 2024-10-18 14:06 :22 Systolic blood pressure 139.0 mm[Hg] 23:41:52 Diastolic blood pressure 51.0 mm[Hg] 2024-09 23:41:52 Pulse Oximetry 96.0 % 2024-10-17 23:41 :52 Respiratory rate 18.0 /min 2024-10-18 04:4 1:52 Body temperature 98.2 [degF] 2024-10-18 04:4 1:52 Heart Rate 79.0 /min 2024-10-18 04:41 :52 Body weight 159.2 [lb_av] 2024-10-17 21:34 :45 Systolic blood pressure 151.0 mm[Hg] 13:37:34 Diastolic blood pressure 51.0 mm[Hg] 2024-09 13:37:34 Pulse Oximetry 96.0 % 2024-10-17 13:37 :34 Respiratory rate 16.0 /min 2024-10-17 18:3 7:34 Body temperature 98.0 [degF] 2024-10-17 18:3 7:34 Heart Rate 77.0 /min 2024-10-17 18:37 :34 Systolic blood pressure 177.0 mm[Hg] 09:07:51 Diastolic blood pressure 66.0 mm[Hg] 2024-09 09:07:51 Systolic blood pressure 177.0 mm[Hg] 09:07:51 Diastolic blood pressure 66.0 mm[Hg] 2024-09 09:07:51 Pulse Oximetry 96.0 % 2024-10-17 09:07 :51 Respiratory rate 18.0 /min 2024-10-17 14:0 7:51 Body temperature 98.0 [degF] 2024-10-17 14:0 7:51 Heart Rate 82.0 /min 2024-10-17 14:07 :51 Systolic blood pressure 177.0 mm[Hg] 06:40:59 Diastolic blood pressure 66.0 mm[Hg] 2024-09 06:40:59 Pulse Oximetry 96.0 % 2024-10-17 06:40 :59 Respiratory rate 18.0 /min 2024-10-17 11:4 0:59 Body temperature 98.3 [degF] 2024-10-17 11:4 0:59 Heart Rate 82.0 /min 2024-10-17 11:40 :59 Systolic blood pressure 137.0 mm[Hg] 02:22:00 Diastolic blood pressure 63.0 mm[Hg] 2024-09 02:22:00 Pulse Oximetry 96.0 % 2024-10-17 02:22 :00 Respiratory rate 18.0 /min 2024-10-17 07:2 2:00 Body temperature 98.2 [degF] 2024-10-17 07:2 2:00 Heart Rate 87.0 /min 2024-10-17 07:22 :00 Systolic blood pressure 130.0 mm[Hg] 00:16:07 Diastolic blood pressure 44.0 mm[Hg] 2024-09 00:16:07 Pulse Oximetry 96.0 % 2024-10-17 00:16 :07 Respiratory rate 18.0 /min 2024-10-17 05:1 6:07 Body temperature 98.2 [degF] 2024-10-17 05:1 6:07 Heart Rate 72.0 /min 2024-10-17 05:16 :07 Body weight 160.6 [lb_av] 2024-10-16 22:27 :15 Systolic blood pressure 114.0 mm[Hg] 08:43:05 Diastolic blood pressure 54.0 mm[Hg] 2024-09 08:43:05 Systolic blood pressure 114.0 mm[Hg] 08:43:05 Diastolic blood pressure 54.0 mm[Hg] 2024-09 08:43:05 Pulse Oximetry 97.0 % 2024-10-16 08:43 :05 Respiratory rate 20.0 /min 2024-10-16 13:4 3:05 Body temperature 97.8 [degF] 2024-10-16 13:4 3:05 Heart Rate 71.0 /min 2024-10-16 13:43 :05 Systolic blood pressure 152.0 mm[Hg] 22:44:43 Diastolic blood pressure 72.0 mm[Hg] 2024-09 22:44:43 Pulse Oximetry 95.0 % 2024-10-15 22:44 :43 Respiratory rate 20.0 /min 2024-10-16 03:4 4:43 Body temperature 97.9 [degF] 2024-10-16 03:4 4:43 Heart Rate 80.0 /min 2024-10-16 03:44 :43 Body weight 157.7 [lb_av] 2024-10-15 14:35 :31 Systolic blood pressure 145.0 mm[Hg] 08:12:56 Diastolic blood pressure 58.0 mm[Hg] 2024-09 08:12:56 Systolic blood pressure 145.0 mm[Hg] 07:41:02 Diastolic blood pressure 58.0 mm[Hg] 2024-09 07:41:02 Pulse Oximetry 93.0 % 2024-10-15 07:41 :02 Respiratory rate 18.0 /min 2024-10-15 12:4 1:02 Body temperature 98.2 [degF] 2024-10-15 12:4 1:02 Heart Rate 92.0 /min 2024-10-15 12:41 :02 Systolic blood pressure 145.0 mm[Hg] 06:48:27 Diastolic blood pressure 58.0 mm[Hg] 2024-09 06:48:27 Pulse Oximetry 93.0 % 2024-10-15 06:48 :27 Respiratory rate 18.0 /min 2024-10-15 11:4 8:27 Body temperature 98.2 [degF] 2024-10-15 11:4 8:27 Heart Rate 92.0 /min 2024-10-15 11:48 :27 Systolic blood pressure 151.0 mm[Hg] 23:26:48 Diastolic blood pressure 58.0 mm[Hg] 2024-09 23:26:48 Pulse Oximetry 97.0 % 2024-10-14 23:26 :48 Respiratory rate 18.0 /min 2024-10-15 04:2 6:48 Body temperature 98.2 [degF] 2024-10-15 04:2 6:48 Heart Rate 79.0 /min 2024-10-15 04:26 :48 Body weight 159.0 [lb_av] 2024-10-14 18:29 :06 Systolic blood pressure 135.0 mm[Hg] 07:53:17 Diastolic blood pressure 55.0 mm[Hg] 2024-09 07:53:17 Systolic blood pressure 135.0 mm[Hg] 07:53:17 Diastolic blood pressure 55.0 mm[Hg] 2024-09 07:53:17 Pulse Oximetry 96.0 % 2024-10-14 07:53 :17 Respiratory rate 18.0 /min 2024-10-14 12:5 3:17 Body temperature 98.0 [degF] 2024-10-14 12:5 3:17 Heart Rate 82.0 /min 2024-10-14 12:53 :17 Systolic blood pressure 124.0 mm[Hg] 22:51:37 Diastolic blood pressure 50.0 mm[Hg] 2024-09 22:51:37 Pulse Oximetry 96.0 % 2024-10-13 22:51 :37 Respiratory rate 18.0 /min 2024-10-14 03:5 1:37 Body temperature 98.0 [degF] 2024-10-14 03:5 1:37 Heart Rate 85.0 /min 2024-10-14 03:51 :37 Body weight 158.8 [lb_av] 2024-10-13 16:02 :28 Systolic blood pressure 138.0 mm[Hg] 10:35:11 Diastolic blood pressure 53.0 mm[Hg] 2024-09 10:35:11 Pulse Oximetry 96.0 % 2024-10-13 10:35 :11 Respiratory rate 20.0 /min 2024-10-13 15:3 5:11 Body temperature 97.8 [degF] 2024-10-13 15:3 5:11 Heart Rate 88.0 /min 2024-10-13 15:35 :11 Systolic blood pressure 138.0 mm[Hg] 08:48:05 Diastolic blood pressure 53.0 mm[Hg] 2024-09 08:48:05 Systolic blood pressure 134.0 mm[Hg] 23:40:30 Diastolic blood pressure 60.0 mm[Hg] 2024-09 23:40:30 Pulse Oximetry 97.0 % 2024-10-12 23:40 :30 Respiratory rate 20.0 /min 2024-10-13 04:4 0:30 Body temperature 98.3 [degF] 2024-10-13 04:4 0:30 Heart Rate 82.0 /min 2024-10-13 04:40 :30 Body weight 169.0 [lb_av] 2024-10-12 18:19 :12 Systolic blood pressure 146.0 mm[Hg] 07:24:20 Diastolic blood pressure 80.0 mm[Hg] 2024-09 07:24:20 Systolic blood pressure 146.0 mm[Hg] 07:14:21 Diastolic blood pressure 80.0 mm[Hg] 2024-09 07:14:21 Pulse Oximetry 92.0 % 2024-10-12 07:14 :21 Respiratory rate 20.0 /min 2024-10-12 12:1 4:21 Body temperature 98.2 [degF] 2024-10-12 12:1 4:21 Heart Rate 87.0 /min 2024-10-12 12:14 :21 Systolic blood pressure 165.0 mm[Hg] 22:48:51 Diastolic blood pressure 66.0 mm[Hg] 2024-09 22:48:51 Pulse Oximetry 97.0 % 2024-10-11 22:48 :51 Respiratory rate 18.0 /min 2024-10-12 03:4 8:51 Body temperature 98.0 [degF] 2024-10-12 03:4 8:51 Heart Rate 80.0 /min 2024-10-12 03:48 :51 Systolic blood pressure 111.0 mm[Hg] 13:30:59 Diastolic blood pressure 51.0 mm[Hg] 2024-09 13:30:59 Pulse Oximetry 97.0 % 2024-10-11 13:30 :59 Body weight 201.8 [lb_av] 2024-10-11 18:30 :59 Respiratory rate 20.0 /min 2024-10-11 18:3 0:59 Body temperature 98.2 [degF] 2024-10-11 18:3 0:59 Heart Rate 80.0 /min 2024-10-11 18:30 :59 Systolic blood pressure 111.0 mm[Hg] 11:07:43 Diastolic blood pressure 51.0 mm[Hg] 2024-09 11:07:43 Pulse Oximetry 97.0 % 2024-10-11 11:07 :43 Body temperature 98.2 [degF] 2024-10-11 16:0 7:43 Heart Rate 80.0 /min 2024-10-11 16:07 :43 Systolic blood pressure 82.0 mm[Hg] 07:55:35 Diastolic blood pressure 38.0 mm[Hg] 2024-09 07:55:35 Systolic blood pressure 98.0 mm[Hg] 22:21:12 Diastolic blood pressure 47.0 mm[Hg] 2024-09 22:21:12 Pulse Oximetry 96.0 % 2024-10-10 22:21 :12 Respiratory rate 18.0 /min 2024-10-11 03:2 1:12 Body temperature 98.2 [degF] 2024-10-11 03:2 1:12 Heart Rate 80.0 /min 2024-10-11 03:21 :12 Body weight 155.6 [lb_av] 2024-10-10 21:03 :49 Systolic blood pressure 138.0 mm[Hg] 08:14:53 Diastolic blood pressure 55.0 mm[Hg] 2024-09 08:14:53 Systolic blood pressure 138.0 mm[Hg] 07:26:45 Diastolic blood pressure 55.0 mm[Hg] 2024-09 07:26:45 Pulse Oximetry 97.0 % 2024-10-10 07:26 :45 Respiratory rate 18.0 /min 2024-10-10 12:2 6:45 Body temperature 98.2 [degF] 2024-10-10 12:2 6:45 Heart Rate 92.0 /min 2024-10-10 12:26 :45 Systolic blood pressure 138.0 mm[Hg] 06:51:08 Diastolic blood pressure 55.0 mm[Hg] 2024-09 06:51:08 Pulse Oximetry 97.0 % 2024-10-10 06:51 :08 Respiratory rate 18.0 /min 2024-10-10 11:5 1:08 Body temperature 98.7 [degF] 2024-10-10 11:5 1:08 Heart Rate 91.0 /min 2024-10-10 11:51 :08 Systolic blood pressure 111.0 mm[Hg] 22:59:38 Diastolic blood pressure 60.0 mm[Hg] 2024-09 22:59:38 Pulse Oximetry 98.0 % 2024-10-09 22:59 :38 Respiratory rate 18.0 /min 2024-10-10 03:5 9:38 Body temperature 98.0 [degF] 2024-10-10 03:5 9:38 Heart Rate 79.0 /min 2024-10-10 03:59 :38 Body weight 154.6 [lb_av] 2024-10-09 21:46 :08 Systolic blood pressure 151.0 mm[Hg] 09:16:46 Diastolic blood pressure 64.0 mm[Hg] 2024-09 09:16:46 Systolic blood pressure 151.0 mm[Hg] 09:16:46 Diastolic blood pressure 64.0 mm[Hg] 2024-09 09:16:46 Pulse Oximetry 96.0 % 2024-10-09 09:16 :46 Respiratory rate 20.0 /min 2024-10-09 14:1 6:46 Body temperature 98.3 [degF] 2024-10-09 14:1 6:46 Heart Rate 85.0 /min 2024-10-09 14:16 :46 Systolic blood pressure 141.0 mm[Hg] 01:12:53 Diastolic blood pressure 57.0 mm[Hg] 2024-09 01:12:53 Pulse Oximetry 98.0 % 2024-10-09 01:12 :53 Respiratory rate 20.0 /min 2024-10-09 06:1 2:53 Body temperature 98.5 [degF] 2024-10-09 06:1 2:53 Heart Rate 84.0 /min 2024-10-09 06:12 :53 Systolic blood pressure 147.0 mm[Hg] 08:32:13 Diastolic blood pressure 51.0 mm[Hg] 2024-09 08:32:13 Systolic blood pressure 147.0 mm[Hg] 08:32:13 Diastolic blood pressure 51.0 mm[Hg] 2024-09 08:32:13 Pulse Oximetry 97.0 % 2024-10-08 08:32 :13 Respiratory rate 18.0 /min 2024-10-08 13:3 2:13 Body temperature 97.0 [degF] 2024-10-08 13:3 2:13 Heart Rate 82.0 /min 2024-10-08 13:32 :13 Systolic blood pressure 126.0 mm[Hg] 22:08:53 Diastolic blood pressure 51.0 mm[Hg] 2024-09 22:08:53 Pulse Oximetry 98.0 % 2024-10-07 22:08 :53 Respiratory rate 20.0 /min 2024-10-08 03:0 8:53 Body temperature 98.0 [degF] 2024-10-08 03:0 8:53 Heart Rate 84.0 /min 2024-10-08 03:08 :53 Systolic blood pressure 123.0 mm[Hg] 16:07:26 Diastolic blood pressure 60.0 mm[Hg] 2024-09 16:07:26 Pulse Oximetry 96.0 % 2024-10-07 16:07 :26 Body weight 157.8 [lb_av] 2024-10-07 21:07 :26 Respiratory rate 17.0 /min 2024-10-07 21:0 7:26 Body temperature 97.8 [degF] 2024-10-07 21:0 7:26 Heart Rate 81.0 /min 2024-10-07 21:07 :26 Systolic blood pressure 123.0 mm[Hg] 09:29:10 Diastolic blood pressure 60.0 mm[Hg] 2024-09 09:29:10 Body height 64.0 [in_i] 2024-10-07 12:51 :58 Systolic blood pressure 111.0 mm[Hg] 23:17:50 Diastolic blood pressure 52.0 mm[Hg] 2024-09 23:17:50 Pulse Oximetry 95.0 % 2024-10-06 23:17 :50 Respiratory rate 16.0 /min 2024-10-07 04:1 7:50 Body temperature 98.4 [degF] 2024-10-07 04:1 7:50 Heart Rate 94.0 /min 2024-10-07 04:17 :50 Body weight 161.9 [lb_av] 2024-10-06 16:28 :51 Systolic blood pressure 133.0 mm[Hg] 08:42:46 Diastolic blood pressure 86.0 mm[Hg] 2024-09 08:42:46 Systolic blood pressure 133.0 mm[Hg] 07:49:16 Diastolic blood pressure 86.0 mm[Hg] 2024-09 07:49:16 Pulse Oximetry 95.0 % 2024-10-06 07:49 :16 Respiratory rate 16.0 /min 2024-10-06 12:4 9:16 Body temperature 98.3 [degF] 2024-10-06 12:4 9:16 Heart Rate 81.0 /min 2024-10-06 12:49 :16 Systolic blood pressure 141.0 mm[Hg] 19:58:23 Diastolic blood pressure 69.0 mm[Hg] 2024-09 19:58:23 Pulse Oximetry 98.0 % 2024-10-05 19:58 :23 Respiratory rate 18.0 /min 2024-10-06 00:5 8:23 Body temperature 97.5 [degF] 2024-10-06 00:5 8:23 Heart Rate 78.0 /min 2024-10-06 00:58 :23 Body weight 159.6 [lb_av] 2024-10-05 21:32 :38 Systolic blood pressure 103.0 mm[Hg] 07:37:19 Diastolic blood pressure 67.0 mm[Hg] 2024-09 07:37:19 Systolic blood pressure 103.0 mm[Hg] 07:34:51 Diastolic blood pressure 67.0 mm[Hg] 2024-09 07:34:51 Pulse Oximetry 97.0 % 2024-10-05 07:34 :51 Respiratory rate 18.0 /min 2024-10-05 12:3 4:51 Body temperature 97.7 [degF] 2024-10-05 12:3 4:51 Heart Rate 83.0 /min 2024-10-05 12:34 :51 Systolic blood pressure 148.0 mm[Hg] 20:09:09 Diastolic blood pressure 53.0 mm[Hg] 2024-09 20:09:09 Pulse Oximetry 96.0 % 2024-10-04 20:09 :09 Respiratory rate 18.0 /min 2024-10-05 01:0 9:09 Body temperature 97.9 [degF] 2024-10-05 01:0 9:09 Heart Rate 92.0 /min 2024-10-05 01:09 :09 Body weight 161.4 [lb_av] 2024-10-04 18:16 :15 Systolic blood pressure 103.0 mm[Hg] 08:01:31 Diastolic blood pressure 74.0 mm[Hg] 2024-09 08:01:31 Pulse Oximetry 95.0 % 2024-10-04 08:01 :31 Respiratory rate 20.0 /min 2024-10-04 13:0 1:31 Body temperature 97.2 [degF] 2024-10-04 13:0 1:31 Heart Rate 97.0 /min 2024-10-04 13:01 :31 Systolic blood pressure 103.0 mm[Hg] 07:50:52 Diastolic blood pressure 74.0 mm[Hg] 2024-09 07:50:52 Systolic blood pressure 103.0 mm[Hg] 07:13:00 Diastolic blood pressure 74.0 mm[Hg] 2024-09 07:13:00 Pulse Oximetry 95.0 % 2024-10-04 07:13 :00 Respiratory rate 20.0 /min 2024-10-04 12:1 3:00 Body temperature 97.2 [degF] 2024-10-04 12:1 3:00 Heart Rate 97.0 /min 2024-10-04 12:13 :00 Systolic blood pressure 123.0 mm[Hg] 22:05:47 Diastolic blood pressure 57.0 mm[Hg] 2024-09 22:05:47 Pulse Oximetry 98.0 % 2024-10-03 22:05 :47 Respiratory rate 22.0 /min 2024-10-04 03:0 5:47 Body temperature 97.8 [degF] 2024-10-04 03:0 5:47 Heart Rate 91.0 /min 2024-10-04 03:05 :47 Body weight 166.5 [lb_av] 2024-10-03 20:34 :38 Systolic blood pressure 166.0 mm[Hg] 09:04:26 Diastolic blood pressure 78.0 mm[Hg] 2024-09 09:04:26 Systolic blood pressure 166.0 mm[Hg] 09:04:26 Diastolic blood pressure 78.0 mm[Hg] 2024-09 09:04:26 Pulse Oximetry 72.0 % 2024-10-03 09:04 :26 Respiratory rate 20.0 /min 2024-10-03 14:0 4:26 Body temperature 97.7 [degF] 2024-10-03 14:0 4:26 Heart Rate 97.0 /min 2024-10-03 14:04 :26 Systolic blood pressure 115.0 mm[Hg] 05:24:00 Diastolic blood pressure 50.0 mm[Hg] 2024-09 05:24:00 Pulse Oximetry 97.0 % 2024-10-03 05:24 :00 Respiratory rate 22.0 /min 2024-10-03 10:2 4:00 Body temperature 98.2 [degF] 2024-10-03 10:2 4:00 Heart Rate 100.0 /min 2024-10-03 10:24 :00 Systolic blood pressure 127.0 mm[Hg] 23:25:53 Diastolic blood pressure 60.0 mm[Hg] 2024-09 23:25:53 Pulse Oximetry 99.0 % 2024-10-02 23:25 :53 Respiratory rate 16.0 /min 2024-10-03 04:2 5:53 Body temperature 97.7 [degF] 2024-10-03 04:2 5:53 Heart Rate 84.0 /min 2024-10-03 04:25 :53 Body weight 167.3 [lb_av] 2024-10-02 21:55 :37 Systolic blood pressure 125.0 mm[Hg] 07:52:07 Diastolic blood pressure 54.0 mm[Hg] 2024-09 07:52:07 Systolic blood pressure 125.0 mm[Hg] 07:51:37 Diastolic blood pressure 54.0 mm[Hg] 2024-09 07:51:37 Pulse Oximetry 96.0 % 2024-10-02 07:51 :37 Respiratory rate 18.0 /min 2024-10-02 12:5 1:37 Body temperature 98.2 [degF] 2024-10-02 12:5 1:37 Heart Rate 85.0 /min 2024-10-02 12:51 :37 Systolic blood pressure 120.0 mm[Hg] 22:56:07 Diastolic blood pressure 48.0 mm[Hg] 2024-09 22:56:07 Pulse Oximetry 99.0 % 2024-10-01 22:56 :07 Heart Rate 81.0 /min 2024-10-02 03:56 :07 Respiratory rate 18.0 /min 2024-10-02 03:5 6:07 Body temperature 97.9 [degF] 2024-10-02 03:5 6:07 Systolic blood pressure 117.0 mm[Hg] 14:06:00 Diastolic blood pressure 45.0 mm[Hg] 2024-09 14:06:00 Pulse Oximetry 95.0 % 2024-10-01 14:06 :00 Respiratory rate 20.0 /min 2024-10-01 19:0 6:00 Body temperature 97.7 [degF] 2024-10-01 19:0 6:00 Heart Rate 98.0 /min 2024-10-01 19:06 :00
--- OUTSIDE RECORDS SUMMARY | 2025-02-22 17:38 | XMS_ITS | Clinical Summary ---
Author Organization [facility] Address [address] [place] [address] Care Team Providers Care Recreation Officer Name Role Phone Isaías Peoples MD Primary Care Provi kori Thad Fuentes MD Unavailable [phone] Allergies Active Allergy Reactions Criticality Noted Date Comments Cefazolin Rash Medium 08/21/2024 Cephalexin Hives,Rash Medium 04/06/2008 Fentanyl Rash Medium 08/21/2024 Morphine Itching,Rash Medium 08/17/2024 Penicillins Hives Medium Sulfa (Sulfonamide Antibiotics) Hives Medium Tramadol Other (See comments) 09/29/2024 confusion Medications polyethylene glycol (MIRALAX) 17 gram/dose powderIndicat ions:constipa tion take (17G) by oral route every day mixed with 8 oz. water, juice, soda, coffee or tea 0 0 12/10/19 14 Active acetaminophen (TYLENOL) 500 mg tabletIndicat ions:Pain Take 2 tablets (1,000 mg total) by mouth every 6 (six) hours as needed for pain Active DULoxetine DR (CYMBALTA) 30 mg capsuleIndica tions:Anxiety with Depression Take 1 capsule (30 mg total) by mouth daily 30 capsule 11 04/17/19 25 026 Active ezetimibe (ZETIA) 10 mg tabletIndicat ions:hyperlip idemia TAKE 1 TABLET (10 MG TOTAL) BY MOUTH DAILY FOR HIGH CHOLESTEROL 90 tablet 1 07/15/19 25 026 Active omeprazole (PriLOSEC) 40 mg capsuleIndica tions:Treatme nt of Non-Bleeding Gastric Disorder Take 1 capsule by mouth daily Active nut.tx.gluc.i ntol,lac-free ,soy liquid Take 1 each by mouth 2 (two) times a day Glucerna Active rosuvastatin (CRESTOR) 40 mg tabletIndicat ions:hyperlip idemia Take 1 tablet (40 mg total) by mouth daily 30 tablet 10/02/19 25 026 Active cholecalcifer ol 25 mcg (1,000 unit) tabletIndicat ions:Vitamin D Deficiency Take 1 unit every day by oral route. Active Ferrex 150 150 mg iron capsuleIndica tions:Iron Deficiency Anemia Take 1 capsule by mouth 2 (two) times a day 10/26/19 25 Active lisinopriL (PRINIVIL,ZES TRIL) 5 mg tabletIndicat ions:hyperten alli Take 5 mg by mouth daily. Indications: high blood pressure Active fluticasone propionate (FLONASE) 50 mcg/actuation nasal sprayIndicati ons:Allergic Rhinitis Administer 2 sprays into each nostril daily. Indications: inflammation of the nose due to an allergy Active lisinopriL (PRINIVIL,ZES TRIL) 5 mg tabletIndicat ions:hyperten alli TAKE 1 TABLET (5 MG TOTAL) BY MOUTH DAILY. 100 tablet 1 02/02/[address] (PROTONIX) 40 mg EC tabletIndicat ions:Treatmen t of Non-Bleeding Gastric Disorder Take 1 tablet (40 mg total) by mouth daily 90 tablet 02/11/20 25 Active benzonatate (TESSALON) 100 mg capsuleIndica tions:Cough Take 1 capsule (100 mg total) by mouth 3 (three) times a day as needed for cough 42 capsule 02/13/20 25 Active lisinopriL (PRINIVIL,ZES TRIL) 5 mg tabletIndicat ions:hyperten alli Take 1 tablet (5 mg total) by mouth daily 90 tablet 4 09/21/19 24 025 Discontinued aspirin 81 mg enteric coated tabletIndicat ions:Deep Vein Thrombosis Prevention [The details of the medication are not available because there are pending changes by a home health clinician.] 84 tablet 10/01/19 25 025 Discontinued(P atient Reported) pantoprazole DR (PROTONIX) 40 mg EC tabletIndicat ions:Treatmen t of Non-Bleeding Gastric Disorder Take 40 mg by mouth daily. Indications: Treatment of Non-Bleeding Gastric Disorder 025 Discontinued(R eorder) Active Problems Problem Noted Date Diagnosed Date Medicare annual wellness visit, subsequent 02/18 Sundowning 11/06/2024 Assessment & Plan (11/06/2024 3:26 PM CDT): Repeated falls 10/02/2024 Iron deficiency anemia, unspecified 09/30/2024 Assessment & Plan (11/06/2024 3:26 PM CDT): Orders: Ferritin; Future Iron profile w/ IBC; Future CBC with auto differential; Future Other malaise 09/30/2024 S/P total right hip arthroplasty 09/29/2024 Assessment & Plan (11/06/2024 3:26 PM CDT): Weakness 08/17/2024 Loss of balance 06/16/2024 Assessment & Plan (06/16/2024 4:24 PM CDT): Orders: Ambulatory referral to Home Health; Future Trigger middle finger of right hand 06/16/2024 Assessment & Plan (06/16/2024 4:24 PM CDT): Orders: Ambulatory referral to Plastic Surgery; Future Hypotension due to medication 04/17/2024 Recurrent UTI 10/03/2023 Assessment & Plan (11/06/2024 3:26 PM CDT): Assessment & Plan (10/03/2023 1:05 PM CDT): Symptomatically improved. Will recheck urinalysis next week to ensure resolution. Make sure to push p.o. water intake. Chronic constipation 04/05/2023 Assessment & Plan (11/06/2024 3:26 PM CDT): Assessment & Plan (07/19/2023 5:45 PM CDT): Patient is doing well with MiraLax 17 g daily. I think she can just continue on this and can increase the MiraLax if needed. Assessment & Plan (04/05/2023 10:10 PM COAL PASSER): Encouraged patient to decrease MiraLax to one capful/17 g daily along with use of magnesium supplement and hydration with water along with physical activity Mild episode of recurrent major depressive disor kori 09/02/2022 Assessment & Plan (01/09/2024 1:58 PM COAL PASSER): Stable on duloxetine. No changes. Will continue to monitor. Assessment & Plan (04/05/2023 10:09 PM COAL PASSER): Emotionally appears better on duloxetine continue for now tolerating well Assessment & Plan (02/28/2023 3:13 PM COAL PASSER): Daughters both agree with increasing duloxetine to 60 mg a day we discussed briefly counseling although would probably be very difficult due to her language challenges they agree they are also aware that there side effects with any medication especially anxiety depression medications they will try dosing her in the morning to help prevent a.m. confusion Assessment & Plan (01/23/2023 8:07 PM COAL PASSER): Start duloxetine low-dose potential side effects discussed [...] Future Assessment & Plan (01/23/2023 8:08 PM COAL PASSER): Home health physical therapy ordered for evaluation treatment due to high fall risk Assessment & Plan (09/02/2022 10:50 PM CDT): Home healthcare ordered for evaluation and treatment. Schedule head CT. Chronic cough 05/01/2021 Assessment & Plan (01/23/2023 8:08 PM COAL PASSER): Chest x-ray today per my view shows decreased lung volumes and underpenetration? Will await official report from Radiology and recommend cough medicine as needed offered referral to labor delivery specialist for ongoing cough declined at this time per patient and daughter will plan to re-evaluate in 5 weeks Assessment & Plan (05/01/2021 9:06 AM COAL PASSER): Patient has chronic cough for years. Recent chest x-ray was abnormal with the possible pneumonia or concerns for bronchiectasis. Will schedule CT of the chest and likely will refer the patient for pulmonary evaluation after the CT if needed. Screening for osteoporosis 12/07/2020 Assessment & Plan (01/04/2023 4:45 PM COAL PASSER): Recheck bone mineral density test 2025 Vitamin D deficiency 12/07/2020 Assessment & Plan (11/06/2024 3:26 PM CDT): Orders: Vitamin D 25 hydroxy; Future Assessment & Plan (06/16/2024 4:30 PM CDT): Check vitamin-D level with next blood draw. Orders: Vitamin D 25 hydroxy; Future Assessment & Plan (01/09/2024 1:56 PM COAL PASSER): Compliant with daily vitamin-D supplement. Will check vitamin-D level and plan accordingly. Assessment & Plan (01/04/2023 4:45 PM COAL PASSER): Continue vitamin-D replacement follow lab Assessment & Plan (01/08/2022 10:24 AM COAL PASSER): Stable. Continue vitamin-D supplement Assessment & Plan (12/12/2020 5:11 PM CDT): Stable. Continue vitamin-D supplement. Carotid stenosis, asymptomatic, bilateral 2018 Assessment & Plan (01/04/2023 4:32 PM COAL PASSER): Carotid ultrasound results reviewed with patient and daughter showing significant narrowing continue present aspirin and statin medication increase cholesterol coverage and maintain blood pressure less than 130/80 patient and daughter encouraged to contact Dr. Laughlin for follow-up now Assessment & Plan (09/02/2022 10:46 PM CDT): Stable. Reviewed Dr. Smith's note 05/31/2022. She will follow-up with Dr. Laughlin and have an repeat ultrasound in 6 months. Continue aspirin daily. Assessment & Plan (01/08/2022 10:23 AM COAL PASSER): Continue low-dose aspirin. Schedule ultrasound Assessment & [...] 05/23/2017 Assessment & Plan (01/04/2023 4:43 PM COAL PASSER): Encourage good night's sleep habit. Stop mirtazapine [...] needed. Assessment & Plan (01/08/2022 10:24 AM COAL PASSER): Not controlled. Will try trazodone 50 mg [...] CDT): Recommend good night's sleep habits avoid [id number] sleeping aids handout provided on habits and [...] 10/02/2016 Assessment & Plan (01/04/2023 4:44 PM COAL PASSER): Tylenol topical heat stretching exercises weight control [...] medications. Assessment & Plan (01/08/2022 10:22 AM COAL PASSER): Stable. Cont current medications. Assessment & Plan (12/12/2020 5:12 PM CDT): Stable. Continue Flonase and Alondra. Assessment & Plan (09/22/2019 7:52 PM CDT): Avoid irritants/allergens continue present medication Generalized anxiety disorder 04/19/2015 Overview (06/03/2016): TALAT Assessment & Plan (04/17/2024 3:43 PM COAL PASSER): >>ASSESSMENT AND PLAN FOR ANXIETY WRITTEN ON 09/06/2022 8:59 AM BY JAGUAR VALE NP Uncontrolled. Patient not tolerating buspirone. Taper off buspirone start mirtazapine 7.5 mg at bedtime to help control anxiety/depression Assessment & Plan (04/05/2023 10:08 PM COAL PASSER): Clinically appears better on duloxetine encourage relaxation techniques Assessment & Plan (02/28/2023 3:12 PM COAL PASSER): Both daughters agree with increasing duloxetine 60 mg a day I think this will help along with relaxation techniques and exercise they will let me know if patient intolerant medication Assessment & Plan (04/17/2024 3:43 PM COAL PASSER): >>ASSESSMENT AND PLAN FOR GENERALIZED ANXIETY DISORDER [...] techniques Assessment & Plan (04/17/2024 3:43 PM COAL PASSER): >>ASSESSMENT AND PLAN FOR GENERALIZED ANXIETY DISORDER WRITTEN ON 01/04/2023 4:38 PM BY PETER TONG, DO Encourage relaxation techniques and exercise >>ASSESSMENT AND PLAN FOR ANXIETY WRITTEN ON 01/04/2023 4:30 PM BY PETER TONG, DO Encouraged relaxation techniques and exercise Assessment & Plan (10/01/2022 3:18 PM CDT): Improving. Continue mirtazapine. Assessment & Plan (01/08/2022 10:23 AM COAL PASSER): Stable. Continue buspirone. Assessment & Plan (12/12/2020 [...] Diverticulosis Assessment & Plan (01/04/2023 4:37 PM COAL PASSER): Avoid constipation recommend high-fiber diet Assessment & [...] (06/03/2016): Benign essential hypertension Assessment & Plan (11/06/2024 3:26 PM CDT): Orders: Comprehensive metabolic panel; Future Lipid panel; Future Assessment & Plan (06/16/2024 4:30 PM CDT): Hypertension is controlled on lisinopril 5 mg per day. Orders: Comprehensive metabolic panel; Future Lipid panel; Future Assessment & Plan (04/17/2024 3:42 PM COAL PASSER): >>ASSESSMENT AND PLAN FOR HYPERTENSION, ESSENTIAL WRITTEN ON 01/09/2024 1:56 PM BY AIDEN ENRIQUEZ NP Normotensive. Continue lisinopril. Continue excellent lifestyle. Will continue to monitor. Assessment & Plan (02/28/2023 3:11 PM COAL PASSER): Continue present medication home blood pressure cuff appears to be accurate continue blood pressure goal less than 130/80 check BMP today Assessment & Plan (01/23/2023 8:05 PM COAL PASSER): Blood pressure presently at goal I recommend reporting blood pressure at home consistently greater than 140/90 or systolic blood pressure less than 100 check lab today BMP continue present medication free emotional state which may be contributing Assessment & Plan (01/04/2023 4:31 PM COAL PASSER): Continue present medication daughter aware blood pressure elevated today she will check blood pressures at home and notify me if consistently greater than 130/80 last 2 visits blood pressure less than 130/80 compliance with medication stressed Assessment & Plan (10/01/2022 3:17 PM CDT): Stable. Continue lisinopril. Assessment & Plan (09/02/2022 10:45 PM CDT): Stable. Continue current medication. Assessment & Plan (01/08/2022 10:22 AM COAL PASSER): Stable. Continue lisinopril. Assessment & Plan (05/30/2021 [...] symptoms. Assessment & Plan (01/04/2023 4:38 PM COAL PASSER): Continue anti-reflux measures and H2 carrie therapy as needed Assessment & Plan (09/02/2022 10:46 PM CDT): Stable. Continue famotidine p.r.n.. Follow anti-reflux measures. Weight loss. Assessment & Plan (01/08/2022 10:23 AM COAL PASSER): Stable. Continue famotidine and anti-reflux measures. Assessment [...] Multiple-type hyperlipidemia 07/12/2013 Overview (04/17/2024 3:50 PM COAL PASSER): MIXED HYPERLIPIDEMIA >>OVERVIEW FOR HYPERLIPIDEMIA WRITTEN ON 06/01/2016 5:03 AM BY INTERFACE, PROBLEM LIST CONVERSION Hyperlipidemia Assessment & Plan (04/17/2024 3:50 PM COAL PASSER): >>ASSESSMENT AND PLAN FOR HYPERLIPIDEMIA WRITTEN ON 10/02/2016 11:54 AM BY PETER TONG, DO Continue diet medication check lab today Assessment & Plan (04/17/2024 3:50 PM COAL PASSER): >>ASSESSMENT AND PLAN FOR HYPERLIPIDEMIA WRITTEN ON 12/18/2017 11:30 PM BY PETER TONG, DO Check lab in 4 weeks prior to next appointment off alcohol To see if improvement occurs continue medication diet Assessment & Plan (04/17/2024 3:50 PM COAL PASSER): >>ASSESSMENT AND PLAN FOR HYPERLIPIDEMIA WRITTEN ON 06/17/2018 9:17 AM BY JAGUAR VALE NP Cont med and low chol diet Assessment & Plan (04/17/2024 3:50 PM COAL PASSER): >>ASSESSMENT AND PLAN FOR HYPERLIPIDEMIA WRITTEN ON 12/03/2018 4:12 PM BY PETER TONG, Recommend healthy diet continue medication check lab fasting Assessment & Plan (04/17/2024 3:50 PM COAL PASSER): >>ASSESSMENT AND PLAN FOR HYPERLIPIDEMIA WRITTEN ON 09/22/2019 7:51 PM BY PETER TONG, DO Continue diet and fish oil and rosuvastatin check lab today fasting Assessment & Plan (04/17/2024 3:50 PM COAL PASSER): >>ASSESSMENT AND PLAN FOR HYPERLIPIDEMIA WRITTEN ON 12/12/2020 5:10 PM BY JAGUAR VALE NP Stable. Continue rosuvastatin and low-cholesterol diet. Encourage weight loss. Assessment & Plan (04/17/2024 3:50 PM COAL PASSER): >>ASSESSMENT AND PLAN FOR HYPERLIPIDEMIA WRITTEN ON 01/08/2022 10:24 AM BY JAGUAR VALE NP Stable. Continue atorvastatin and low-cholesterol diet. Assessment & Plan (04/17/2024 3:50 PM COAL PASSER): >>ASSESSMENT AND PLAN FOR HYPERLIPIDEMIA WRITTEN ON 09/02/2022 10:47 PM BY JAGUAR VALE NP Stable. Continue statin. Low-cholesterol diet. Weight loss. Assessment & Plan (04/17/2024 3:50 PM COAL PASSER): >>ASSESSMENT AND PLAN FOR HYPERLIPIDEMIA WRITTEN ON 01/04/2023 4:39 PM BY PETER TONG, Add Zetia to rosuvastatin patient given diet handout for both triglyceride and heart healthy low-cholesterol diet reviewed with patient and daughter today check lab in 8 weeks LDL goal less than 70 especially with low HDL Assessment & Plan (04/17/2024 3:50 PM COAL PASSER): >>ASSESSMENT AND PLAN FOR HYPERLIPIDEMIA WRITTEN ON [...] scan Assessment & Plan (01/04/2023 4:33 PM COAL PASSER): Improve blood pressure and cholesterol control report chest pain continue aspirin and statin medication Assessment & Plan (05/30/2021 9:08 PM CDT): Continue aspirin statin medication blood pressure control report chest pain shortness of breath Resolved Problems Problem Noted Date Diagnosed Date Resolved Date Localized edema 10/05/2024 11/06/2024 Acute posthemorrhagic anemia 09/30/2024 11/06/2024 Disorientation, unspecified 09/30/2024 11/06/2024 Presence of artificial knee joint, bilateral 11/06/2024 Presence of right artificial hip joint 09/30/2024 11/06/2024 Preop general physical exam 09/19/2024 11/06/2024 Avascular necrosis of hip, right 09/18/2024 11/06/2024 Drug rash 08/22/2024 11/06/2024 Avascular necrosis of bone of hip, right 08/21/2024 11/06/2024 Primary osteoarthritis of right hip 08/21/2024 11/06/2024 Right shoulder pain 04/17/2024 11/07/19 Encounter for Medicare annual wellness exam 01/09/2024 02/18/2025 Assessment & Plan (01/09/2024 1:56 PM COAL PASSER): Visit preventive in nature. We reviewed medications, chronic conditions, risk factors, lifestyle recommendations. Reviewed immunization recommendations. Follow-up in 6 months for chronic conditions and 1 year for annual wellness. Iron deficiency 10/03/2023 11/06/2024 Assessment & Plan (10/03/2023 1:06 PM CDT): Compliant with supplement. Will check iron panel and plan accordingly. Hospital discharge follow-up 10/03/2023 04/17/2024 Assessment & [...] 03/31/2023 Assessment & Plan (04/05/2023 10:09 PM COAL PASSER): Hydration encouraged along with changing positions slowly report worsening symptom Urine leukocytes 03/31/2023 04/17/2024 Itching 02/28/2023 04/17/2024 Assessment & Plan (02/28/2023 3:12 PM COAL PASSER): Triamcinolone cream p.r.n. avoid on face Weight loss 02/28/2023 04/17/2024 Assessment & Plan (02/28/2023 3:13 PM COAL PASSER): Will treat anxiety depression which may help [...] 04/17/2024 Assessment & Plan (02/28/2023 3:12 PM COAL PASSER): Although no real change recently do the chronicity I recommend referral to neurology for evaluation and possible medication recommendations Assessment & Plan (09/02/2022 10:47 PM CDT): Schedule head CT. Tylenol extra-strength 2 tablets t.i.d. as needed for pain. UTI (urinary tract infection) 03/14/2022 04/17/2024 Assessment & Plan (04/05/2023 10:07 PM COAL PASSER): Patient finishing antibiotic now clinically doing well recheck lab todayReport dysuria or urinary frequency or acute confusion BMI 33.0-33.9,adult 01/08/2022 04/17/19 Assessment & Plan (01/04/2023 4:31 PM COAL PASSER): BMI Follow-up includes: nutrition counseling, exercise counseling, and education provided. Assessment & Plan (09/02/2022 10:45 PM CDT): BMI Follow-up includes: Diet and exercise . Assessment & Plan (01/08/2022 10:25 AM COAL PASSER): BMI Follow-up includes: Diet and exercise. 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 Could be secondary to constipation or diverticular disease. Will schedule CT scan of the abdomen pelvis for evaluation specially in view of the anemia. Encounter for screening mamm ogram for malignant neoplasm of breast 12/07/2020 11/06/2024 Assessment & Plan (01/04/2023 4:38 PM COAL PASSER): Plan mammogram after February 23, 2023 Annual physical exam 09/22/2019 025 Assessment & Plan (01/04/2023 4:30 PM COAL PASSER): Flu vaccine given today patient declines COVID and RSV vaccines return to the office in 6 months Assessment & Plan (01/08/2022 10:19 AM COAL PASSER): Recommend bivalent covid vaccine. Other immunizations current. [...] fall and well-woman examination yearly with Dr. Brooks Chand 09/22/2019 04/17/2024 Assessment & Plan (09/22/2019 12:33 [...] response Depression 02/18/2016 10/02/2016 Overview (06/03/2016): Depression Anemia 05/18/2015 11/06/2024 Overview (06/03/2016): Anemia Assessment & Plan (05/30/2021 9:04 PM CDT): Suspect recent H&H drop may be related to acute illness in February and patient's advanced age. Report obvious blood loss or loss of appetite/weight loss check CBC today Assessment & Plan (05/01/2021 9:08 AM COAL PASSER): This anemia was a new and mild. MCV was elevated. No sign of GI bleeding. I will check iron level, B12, and folate and follow. Adiposity 04/19/2015 04/17/2024 Overview (06/03/2016): Obesity Pure hypercholesterolemia 12/09/2013 Overview (05/31/2016): Pure hypercholesterolemia Labile hypertension 04/07/2008 04/17/19 25 Assessment & Plan (04/05/2023 10:08 PM COAL PASSER): Restart lisinopril 10 mg a day daughter to report if consistently greater than 130/80 at home or systolic blood pressure is consistently below 110 check BMP today due to recent elevation in potassium GERD (gastroesophageal reflux disease) 09/22/2019 Encounters Date Type Department Care Team Description 02/13/2025 10:37 AM COAL PASSER - 02/13/2025 11:59 PM COAL PASSER Hospital Encounter [address] [address] Acute cough Discharge Disposition: Discharge to home or self care 02/13/2025 Telephone [facility] Primary Care at [address] [place] [phone] Isaías Peoples MD Symptom Based Call 02/12/2025 6:15 PM COAL PASSER Office Visit [facility] [place] [address] [place] [phone] Rosalinda Draper, UMESH Sore throat (Primary Dx); Acute cough 02/12/2025 Results Follow-Up [facility] [place] [address] [place] [address] Rosalinda Draper, SKOOG OPERATOR POC Influenza A/B, RSV and COVID-19 PCR, POCT rapid strep A, XR Chest Pa Lateral 2 Views 02/12/2025 Nurse Triage [facility] at [address] [phone] Isaías Peoples MD 01/09/2025 11:30 AM COAL PASSER Home Care Visit [address] [address] [address] [place] [address] Lora Montalvo, PT PT OASIS DISCHARGE 12/31/2024 12:00 PM COAL PASSER Home Care Visit [address] [address] [address] [place] [address] Pema Munson, PT PT HOME VISIT 12/27/2024 11:00 AM CDT Home Care Visit [address] [place] [address] Patience Roblero, PT PT HOME VISIT 12/17/2024 1:30 PM CDT Home Care Visit [address] [place] [address] Pema Munson, PT PT HOME VISIT 12/16/2024 Telephone [facility] Primary Care at [address] [phone] Angelina Gama Successful Phone Call (Med adherence) 12/15/2024 1:00 PM CDT Home Care Visit [address] [place] [address] Pema Munson, PT PT HOME VISIT 12/15/2024 Telephone [facility] Primary Care at [address] [place] [phone] Isaías Peoples MD Medical Question/Miscellaneo us 12/11/2024 12:00 PM CDT Home Care Visit [address] [address] [address] [place] [address] Pema Munson, PT PT HOME VISIT 12/08/2024 11:30 AM CDT Home Care Visit [address] [address] [address] [place] [address] Lora Montalvo, PT PT OASIS START OF CARE 12/08/2024 Plan of Care Documentation [address] [address] [address] [place] [address] 12/04/2024 ACO Medication Access [facility] Accountable Care Organization [address] [place] [id number] Loren Cain, [facility] 12/03/2024 Telephone [facility] Home Care Services [address] [place] [address] [place] [phone] Violette Mustafa, RN 12/03/2024 Telephone [facility] Services [address] [place] [address] [place] [phone] Violette Mustafa, RN 12/03/2024 Telephone [facility] [address] [place] [address] [place] [phone] Violette Mustafa, RN 12/03/2024 Telephone [facility] [address] [place] [address] [place] [phone] Violette Mustafa, RN 12/02/2024 Telephone [facility] [address] [place] [address] [place] [phone] Violette Mustafa, RN 12/02/2024 Telephone [facility] [address] [place] [address] [address] [place] [address] Thad Fuentes MD 12/02/2024 Telephone [facility] Home Care Services [address] [place] [phone] Violette Mustafa RN 12/02/2024 Telephone [facility] Services [address] [place] [phone] Violette Mustafa, RN 12/01/2024 Telephone [facility] Services [address] [place] [phone] Violette Mustafa, RN 11/28/2024 Telephone [facility] [address] [place] [address] [address] [place] [address] Thad Fuentes MD Spoke With Home Health Provider 11/28/2024 Telephone [facility] [address] [facility] [address] [place] [phone] Violette Mustafa, FORTINO 11/27/2024 1:30 PM CDT Office Visit [facility] Orth[facility] Sports Medicine [address] [place] [address] [address] [place] [id number] Ermelinda Yusuf NP Aftercare following right hip joint replacement surgery (Primary Dx); S/P total right hip arthroplasty; Weakness of right lower extremity; Primary osteoarthritis of right hip 11/27/2024 7:50 AM CDT - 11/27/2024 11:59 PM CDT Hospital Encounter [facility] [address] [place] [address] [address] [place] [address] Discharge Disposition: Discharge to home or self care 11/27/2024 Orders Only [facility] Sports Medicine and Primary Care at [address] [place] [address] Ermelinda Yusuf NP S/P total right hip arthroplasty (Primary Dx) from Last 3 Months Immunizations Immunization Administration Dates Next Due Influenza, Quad, Adjuvantate d, Intramuscular 11/22/2020 Influenza, Quadrivalent, Hig h Dose, Preservative Free, Intrr 01/04/2023,12/09/2021,12/08/2021,12/08 Influenza, Split 12/11/2011, 1,12/13/2009,11/11 Influenza, Trivalent, High D ose, Split, Preservative Free, Intramuscular 12/03/2018,12/17/2017,01/02/2017,11/26,12/23/2014,11/26/2014,11/19/2013 ,11/19/2013 Influenza, Trivalent, IM (MDV) 11/15/2012 Influenza, Unspecified 01/08/2024(Deferr ed: Patient Refused),12/06/2023(Deferred: Patient Refused),12/06/2023(Deferred: Patient Refused),12/06/2023(Deferred: Patient Refused),01/04/2023,10/27/2020, 020 Jackie (J&J) SARS-CoV-2 Vaccination 05/04/2020 PPD TEST 10/04/2024,10/02/2024 Pneumococcal Conjugate PCV 13 04/19/2015 Pneumococcal Polysaccharide PPV23 02/22/2014 ZOSTER Recombinant 03/31/2020, 0,01/04/2019,01/04 Surgical History Surgery Date Site/Laterality Comments KNEE ARTHROPLASTY 02/26/1997 - 02/25/1998 Right Knee replacement HYSTERECTOMY 02/26/1999 - 02/26/2000 Hysterectomy OTHER SURGICAL HISTORY 02/26/2011 - 02/26/2012 gastric ulcer: upper endoscopy OTHER SURGICAL HISTORY 02/26/2017 - 02/25/2018 Bilateral cataract removed TOTAL KNEE ARTHROPLASTY Left CARPAL TUNNEL RELEASE Bilateral JOINT REPLACEMENT both knee replacement Medical History Medical History Date Comments Hx Other Medical 2011 gastric ulcer Hx Other Medical 10/16/2011 right knee repl acement Anxiety Allergic Arthritis Hyperlipidemia Hypertension Depression GERD (gastroesophageal reflux disease) Obesity Carotid stenosis, asymptomatic, bilateral Sleep difficulties Diverticulosis Coronary artery calcification seen on CAT scan PONV (postoperative nausea and vomiting) Avascular necrosis of hip, right (HCC) 5 Avascular necrosis of bone of hip, right (HCC) 0 08/21/2024 Anemia Family History Medical History Relation Name Comments [...] Frequency of experiencing loneliness or isolatio n Never 01/09/2025 OASIS A1250: Transportation Answer Date Recorded Lack of Transportation (Medical) No 01/09/2025 Lack of Transportation (Non-Medical) No 01/09/2025 Patient Unable or Declines to Respond No 01/09/2025 OASIS B1300: Health Literacy Answer Edi e Recorded Frequency of needing help to read materials from doctor or pharmacy Always 01/09/2025 AUDIT-C Answer Date Recorded Q1: How often [...] PHQ-2 Answer Date Recorded PHQ-2 Total Score 0 11/06/2024 Exercise Vital Sign Answer Date Recorde d [...] Answer Date Recorded PHQ-9 Total Score 0 11/06/2024 Housing Stability Vital Sign Answer Edi e Recorded In the last 12 months, was t here a time when you were not able to pay the mortgage or rent on time? No 09/30/2024 In the past 12 months, how m any times have you moved where you were living? 0 09/30/2024 At any time in the past 12 m [facility], were you homeless or living in a long term (including now)? No 09/30/2024 Social Connection and Isolation Panel Answer Date Recorded In a typical week, how many times do you talk on the phone with family, friends, or neighbors? More than three times a week 10/28/2024 How often do you get togethe r with friends or relatives? More than three times a week 10/28/2024 How often do you attend chur ch or restorationist services? Never 10/28/2024 Do you belong to any clubs o r organizations such as samaritan groups, unions, fraternal or athletic groups, or [...] any time in the past 12 m [place], were you homeless or living in a long term (including now)? No 10/28/2024 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 on file Not on file Not [...] Sign Reading Time Taken Comments Blood Pressure 110/68 02/12/2025 6:45 PM COAL PASSER Pulse 77 02/12/2025 6:45 PM COAL PASSER Temperature 36.6 C (97.9 F) 02/12/2025 6:45 PM COAL PASSER Respiratory Rate 16 02/12/2025 6:45 PM COAL PASSER Oxygen Saturation 97% 02/12/2025 6:45 PM COAL PASSER Inhaled Oxygen Concentration - - Weight 77.6 kg (171 lb) 02/12/2025 6:45 PM COAL PASSER Height 162.6 cm (5' 4) 02/12/2025 6:45 PM COAL PASSER Body Mass Index 29.35 02/12/2025 6:45 PM COAL PASSER Plan of Treatment Health Maintenance Due Date Last Done Comments DTaP/Tdap/Td Vaccine (1 - Tdap) 1951 Hepatitis B Screening 01/11/1958 Osteoporosis Screening-Bone Density Scan 01/06/2023 01/06/2021, 08/06/2013 Covid-19 Vaccine (2 - 2024-2 6 season) 2024 05/04/2020 Influenza Vaccine (#1) 2024 , 01/04/2023, 12/09/2021, Additional history exists Well Visit 65+ 01/07/2025 01/08/2024, 10/2022, 02/23/2022, Additional history exists Fall Risk Assessment 10/01/2025 10/01/2024, 09/18/2024, 01/08/2024, Additional history exists Depression Screening 11/06/2025 11/06/2024, 11/06/2024, 04/17/2024, Additional history exists Pneumococcal vaccine 65+ Completed 04/19/2015, 01/27 Zoster Vaccine Completed 03/31/2020, 10/2019, 01/04/2019, Additional history exists Goals Goal Patient Goal Type Associated Problems Recent Progress Patient-Stated? Author Autogenera yvrose Goal Care Plan Autogenerated Problem No Rosalinda Carson MA Medical Devices Implanted Type Area Set Designer Device Identifier Shelf Expiration Date Model / Serial / Lot [employer] [place] 52mm Sector Hip Shell Acetabular Gription Sterile Latex Free [id number] - [id number] Implanted:Qty: 1 on 09/29/2024 by Thad Fuentes MD at [facility] Right: Hip [employer] [id number] 06/25/2034 [id number] / / [id number] [employer] [place] 52mm 36mm Hip Neutral Liner Acetabular Altrx Sterile Latex Free [id number] - [id number] Implanted:Qty: 1 on 09/29/2024 by Thad Fuentes MD at [facility] Right: Hip [employer] [id number] 05/26/2029 [id number] / / [id number] [employer] [place] 6.5mm 25mm Acetabular Cancellous Screw Bone Sterile 1217--500 - [id number] Implanted:Qty: 1 on 09/29/2024 by Thad Fuentes MD at [facility] Right: Hip [employer] [id number] 06/25/2034 1217-25-500 / / [id number] [employer] [place] 6.5mm 20mm Acetabular Cancellous Screw Bone Sterile 1217--500 - [id number] Implanted:Qty: 1 on 09/29/2024 by Thad Fuentes MD at [facility] Right: Hip [employer] [id number] 05/26/2034 1217--500 / / [id number] [employer] Actis Collared Hip /14 6 Standard Offset Stem Femoral [id number] - [id number] Implanted:Qty: 1 on 09/29/2024 by Thad Fuentes MD at [facility] Right: Hip [employer] [id number] 02/25/2034 [id number] / / [id number] [employer] Articul/Jose Alberto 36mm Cementless Hip +5mm 12/14 T[place] Head Femoral Latex Free [id number] - [id number] Implanted:Qty: 1 on 09/29/2024 by Thad Fuentes MD at [facility] Right: Hip [employer] [id number] 07/26/2029 [id number] / / [id number] Procedures Procedure Name Priority Date/Time Associated Diagnosis Comments XR CHEST PA LATERAL 2 VIEWS Schedule ALFREDO, Read ALFREDO (Appt Today, Awaiting Results) 02/13/2025 10:53 AM COAL PASSER Acute cough POC INFLUENZA A/B, RSV AND COVID-19 PCR Routine 02/12/2025 7:31 PM COAL PASSER Sore throat POCT RAPID STREP Routine 02/12/2025 6:58 PM COAL PASSER Sore throat XR HIP RIGHT 2 OR 3 VIEWS Schedule Routine, Read Routine (OP Routine) 11/27/2024 1:29 PM CDT Aftercare following right hip joint replacement surgery DEXA AXIAL SKELETON BONE DENSITY 1 OR MORE SITES Schedule Routine, Read Routine (OP Routine) 01/06/2021 3:16 PM COAL PASSER Screening for osteoporosis Other primary ovarian failure from Last 3 Months or Most Recently Relevant to Health Maintenance Results * XR Chest Pa Lateral 2 Views (02/13/2025 10:53 AM COAL PASSER) Anatomical Region Laterality Modality Body, Chest N/A Computed Radiogr aphy 02/13/2025 11:1 0 AM COAL PASSER Impressions 02/13/2025 11:10 AM COAL PASSER Similar-appearing bilateral pulmonary opacities likely represent chronic interstitial changes. No new pulmonary opacities appreciated. Electronically signed by: Margarito Dodge MD Narrative 02/13/2025 11:10 AM COAL PASSER EXAMINATION: XR CHEST PA LATERAL 2 VIEWS HISTORY: Cough. TECHNIQUE: Frontal and lateral views of the chest. COMPARISON: Chest radiograph 01/23/[address] chest 05/04/2021 FINDINGS: Low lung volumes degrade the evaluation. There is a similar appearance of lower lobe and perihilar predominant interstitial opacities. No sizable pleural effusion or pneumothorax. The heart size and mediastinal contours are unchanged. There is atherosclerotic calcification of the aorta. There are degenerative changes throughout the thoracic spine. Procedure Note Margarito Dodge MD - 02/13/2025 EXAMINATION: XR CHEST PA LATERAL 2 VIEWS HISTORY: Cough. TECHNIQUE: Frontal and lateral views of the chest. COMPARISON: Chest radiograph 01/23/[address] chest 05/04/2021 FINDINGS: Low lung volumes degrade the evaluation. There is a similar appearance of lower lobe and perihilar predominant interstitial opacities. No sizable pleural effusion or pneumothorax. The heart size and mediastinal contours are unchanged. There is atherosclerotic calcification of the aorta. There are degenerative changes throughout the thoracic spine. IMPRESSION: Similar-appearing bilateral pulmonary opacities likely represent chronic interstitial changes. No new pulmonary opacities appreciated. Electronically signed by: Margarito Dodge MD Rosalinda Draper NP IMG XR PROCEDURES Final Re sult * POC Influenza A/B, RSV and COVID-19 PCR (02/12/2025 7:31 PM COAL PASSER) COVID-19 RNA PCR, POC Negative Not Detected, Negative, Undetected [facility] FLU A RNA PCR, POC Negative Not Detected, Negative, Undetected [facility] FLU B RNA PCR, POC Negative Not Detected, Negative, Undetected [facility] RSV RNA PCR, POC Negative Not Detected, Negative, Undetected [facility] Nasopharyngeal 02/12/2025 7: 31 PM COAL PASSER Rosalinda Draper NP POINT OF CARE TEST ORDERAB LES Final Result Performing Organization Address City/State/[facility] Co de Phone Number [facility] [address] [place] [address] * POCT rapid strep A (02/12/2025 6:58 PM COAL PASSER) Pathologist [facility] Rapid Strep A, POC Negative Negative Swab 02/12/2025 6:58 PM COAL PASSER Rosalinda Draper NP POINT OF CARE TEST ORDERAB LES Final Result * XR Hip Right 2 or 3 Views (11/27/2024 1:29 PM CDT) Anatomical Region Laterality Modality Lower Extremities, Hip, Pelvis Right D igital Radiography Narrative 11/27/2024 1:40 PM CDT Radiographs taken of the right hip today reveal a total hip arthroplasty in appropriate position with no interval change from the time of surgery. Ermelinda Yusuf NP IMG XR PROCEDURES Final Result * Dexa Axial Skeleton Bone Density 1 or 2 Site (01/06/2021 3:16 PM COAL PASSER) Anatomical Region Laterality Modality Body N/A Digital RadioTruevision[employer] phy 01/06/2021 3:56 PM COAL PASSER Impressions 01/06/2021 3:56 PM COAL PASSER BMD near the young adult mean. Based on BMD alone, there is no increased risk of fragility fracture. If followup is to be done, for technical reasons, it should be performed on this same machine. Electronically signed by: Sukhi Avalos M.D. Narrative 01/06/2021 3:56 PM COAL PASSER EXAM: Bone mineral density examination HISTORY: Postmenopausal. Calcium and vitamin D supplementation. Assess for osteoporosis. DXA BMD was done at [facility] on a Hologic Horizon W. Precision testing [...] for osteoporosis. DXA BMD was done at [facility] on a [employer] Horizon W. Precision testing at this site [...] signed by: Sukhi Avalos M.D. Jaguar Maxwell NP IM DXA PROCEDURES Final R esult from Last 3 Months or Most Recently Relevant to Health Maintenance Additional Health Concerns Active Problems Noted Date Diagnosed Date Autogenerated Problem 09/30/[address] [place] [address] [facility] [address] [facility] Member Subscriber Plan / Payer (Ef fective 2013-Present) Name:KAHLIL HERNANDEZ Relation to Subscriber:Self Name:Kahlil Hernandez Payer ID:[id number] (NAIC) Type:MEDICARE RISK OTHER Address: [address] [place] [id number] [facility] Advance Directives For more information, please contact: [phone] * Full Code (Latest Code Status on File) Date Activated Date Inactivated Comments 09/29/2024 4:36 PM 10/01/2024 4:32 PM Care Teams Recreation Officer Relationship Specialty Start Date End Date Isaías Peoples MD [address] [place] [address] PCP - General Family Practice 04/14/24 Thad Fuentes MD [address] [place] [address] [address] [place] [address] Surgeon Orthopedic Surgery 09/30/24
--- OUTSIDE RECORDS SUMMARY | 2025-02-22 17:38 | XMS_ITS | Encounter Summary ---
Author Organization [facility] Healthcare Address [address] [place] [address] Care Team Providers Care Horse Stud Manager Name Role Phone Isaías Peoples MD Primary Care Provi kori Thad Fuentes MD Unavailable [phone] Reason for Visit * Reason Onset Date Comments Symptom Based Call 02/13/2025 Encounter Details Date Type Department Care Team (Late st Contact Info) Description 02/13/2025 Telephone [facility] Medical Group Primary Care at [address] [place] [address] Isaías Peoples MD [address] [place] [address] Symptom Based Call Social History Tobacco Use Types Packs/Day Years [...] any time in the past 12 m [facility], were you homeless or living in a fci (including now)? No 09/30/2024 Social Connection and Isolation Panel Answer Date Recorded In a typical week, how many times do you talk on the phone with family, friends, or neighbors? More than three times a week 10/28/2024 How often do you get togethe r with friends or relatives? More than three times a week 10/28/2024 How often do you attend chur ch or zoroastrianism services? Never 10/28/2024 Do you belong to any clubs o r organizations such as baptism groups, unions, fraternal or athletic groups, or [...] any time in the past 12 m [facility], were you homeless or living in a fci (including now)? 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 Non-Emergent. Is this a new or reoccurring symptom(s)? reoccurring What have you tried to help your symptom(s)? Robitussin Why was appointment not scheduled? Patient seeking care without an appointment; appointment was offered by . Additional Comments: Kate patients daughter called to request something be prescribed, caller stated the patient was seen at Urgent Care but still has a cough, please advise. Does message need to be routed? Yes-Action Needed BILITATION CONSULTANT documented in this encounter Plan of Treatment [...] documented as of this encounter Care Teams Horse Stud Manager Relationship Specialty Start Date End Date Isaías Peoples MD [address] [facility] [address] [place] [address] PCP - General Family Practice 04/14/24 Thad Fuentes MD [address] [facility] [address] [place] [address] Surgeon Orthopedic Surgery 09/30/24 documented as of this encounter
--- OUTSIDE RECORDS SUMMARY | 2025-02-22 17:38 | XMS_ITS | Clinical Summary ---
Author Organization [facility] Address [address] [place] [address] Phone Care Team Providers Care Financial Management Consultant Name Role Phone Isaías Peoples MD Primary [...] pain,Avascular necrosis of bone of hip, right Take 1 Tablet by mouth every 6 hours as needed for Moderate or more severe pain. 50 Tablet 5 Active Active Problems Problem Noted Date Diagnosed Date Hypertension 08/25/2024 Drug rash 08/22/2024 Primary osteoarthritis of right hip 08/21/2024 Avascular necrosis of bone of hip, right 025 Weakness 08/17/2024 Family History Medical History Relation Name Comments [...] declined 08/17/2024 How often do you attend cheondoism or orthodoxy serv ices? Patient declined 08/17/2024 Do you belong to any clubs o r organizations such as cheondoism groups, unions, fraternal or athletic groups, or [...] medical care, and heating? Patient declined 08/17/2024 [facility] - Occupational Stress [...] any time in the past 12 m [facility], were you homeless or living in a snf (including now)? Patient declined 08/17/2024 [facility] Utilities Answer Date Recorded In the past 12 months has efectivox, gas, oil, or water company threatened to [...] (Adult) (1 - 1-dose 75+ series) 2013 Medicare Initial AWV G0438 02/26/2014 DEXA Bone Density 01/06/2023 01/06/2021 Influenza Immunization (#1) 2024 11/0 10/2022, 12/09/2021, 12/08/2021, Additional history exists SARS-COV-2 Immunization ( season) 2024 05/04/2020 Pneumococcal Immunization (50+ years) Completed 04/19/2015, 02/22/2014 Zoster Immunization Completed 03/31/2020, 03/06/2019, 01/04/2019 Hepatitis B Immunization Aged Out No longer eligible based on patient's age to complete this topic Human Papillomavirus (HPV) Immunization (No Doses Required) Completed Meningococcal Immunization (ACWY) Aged Out No longer eligible based on patient's age to complete this topic Rotavirus Immunization Aged Out No lo nger eligible based on patient's age to complete this topic Additional Health Concerns Infection Onset Date Last Indicated Other Comment:Possible Shingles 08/25/2024 08/25/2024 Insurance MEDICARE C [employer] Advance Directives * Full Code (Latest Code Status on File) Date Activated Date Inactivated Comments 08/17/2024 3:33 PM CPR-Full Treat ment: FULL ARREST: Attempt Resuscitation/CPR wit intubation and mechanical ventilation. PRE-ARREST: Use entire range of life support measures to stabilize the patient. Care Teams Financial Management Consultant Relationship Specialty Start Date End Date Isaías Peoples MD [address] [place] [address] PCP - General Family Medicine 08/17/24
--- OUTSIDE RECORDS SUMMARY | 2025-02-22 17:38 | XMS_ITS | Data Portability ---
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 Not available 10/14/2024 18:02:14 10/16/2024 10/16/2024 Labs pending from this AM. Not available 10/16/2024 15:04:37 10/20/2024 10/20/2024 Labs on 10/23. Not available 10/20/2024 09:50:20 10/22/2024 10/22/2024 Labs on 10/23. Not available 10/22/2024 14:07:22 10/24/2024 10/24/2024 Addendum: Pt has been issued LCD 10/25 and will discharge home on 10/26 with [facility] and private-duty nursing -- pt's family has appealed this decision with insurance. Not available 10/25/2024 08:56:38 Plan of Treatment Reminders Order Date Submit Date Provider Last Modified By Organization Details Last Modified Time Details Appointments None record ed. Lab None record ed. Referral None record ed. Procedures None record ed. Surgeries None record ed. Imaging None record ed. Medication Orders None record ed. Patient TargetsNo targets recorded. Patient Instructions Encounter Date Encounter Id Patient Instructions Last Modified By Organization Details Last Modified Time 10/14/2024 [id number] I spent 35 minutes providing care to the patient today. More than 50% of that time was spent in discussing the expected course of the disease, discussing prognosis, coordinating care and counseling of the patient/family. [email or web address] Not available 10/14/2024 18:03:28 10/16/2024 [id number] I spent 37 minutes providing care to the patient today. More than 50% of that time was spent in discussing the expected course of the disease, discussing prognosis, coordinating care and counseling of the patient/family. Not available 10/16/2024 15:00:16 10/20/2024 [id number] I spent 38 minutes providing care to the patient today. More than 50% of that time was spent in discussing the expected course of the disease, discussing prognosis, coordinating care and counseling of the patient/family. Not available 10/20/2024 15:05:11 10/22/2024 [id number] I spent 36 minutes providing care to the patient today. More than 50% of that time was spent in discussing the expected course of the disease, discussing prognosis, coordinating care and counseling of the patient/family. Not available 10/22/2024 14:08:13 10/24/2024 [id number] I spent 40 minutes providing care to the patient today. More than 50% of that time was spent in discussing the expected course of the disease, discussing prognosis, coordinating care and counseling of the patient/family. The patient will be discharged home with home health orders of home health RN / PT / OT to evaluate and treat. The patient is homebound because of fall risk and is unable to leave home safely because requires considerable and taxing effort to leave home. The patient requires home health nursing for instruction, observation and assessment; PT for training to restore safe independent functional ambulation in community; and OT for training to improve ability to fulfill ADLs. Please follow-up with your primary care provider within 1 week. Call your primary care provider for instructions or go to the emergency room for new or worsening symptoms. [email or web address] Not available 10/25/2024 08:57:56 Reason for Referral None Reported. Results Created Date Observation Date Name Description Value Unit Range Abnormal Flag Note LastModifiedBy Organization Detail LastModifiedTime Result Notes None recorded. Procedures Surgical History Date Name Laterality Status Provider Name and Address Organization Details Recorded Time arthroplasty of knee completed Chun Iniguez [place] [facility] 10/02/2024 10:09:50 hysterectomy completed Marnice Geetha [place] [facility] 10/02/2024 10:09:59 total [place] [address] [place], [address], [place] [facility] 10/03/2024 04:30:28 Imaging Results None recorded. Procedure Notes None recorded. Medical Equipment None Reported. Allergies Allergen ID Allergen Name Allergen Category Reaction Reaction Severity Criticality Documentation Date Start Date Code Code System Note Provider Name and Address Organization Details Recorded Time 37000 cefazolin medicatio n Not available Not available Not available 10/02/2024 2180 RxNorm Tung Sams null, [place] [facility] 01:59:54 18285 cephalexi n medicatio n Not available Not available Not available 10/02/2024 2231 RxNorm Tung Sams [place] [facility] 01:59:58 03358 fentanyl medicatio n Not available Not available Not available 10/02/2024 4337 RxNorm Tung Sams [place], [place] [facility] 5 02:00:02 76051 morphine medicatio n Not available Not available Not available 10/02/2024 7052 RxNorm Tung Flaquita [place] [facility] 02:00:06 41479 Product containin g penicilli n (product) medicatio n Not available Not available Not available 10/02/2024 51733 8001 SNOMED Tung Sams [place] [facility] 5 02:00:11 28491 Substance with sulfonami de structure and antibacte rial mechanism of action (substanc e) medicatio n Not available Not available Not available 10/02/2024 04027 8003 SNOMED Tung Flaquita [place] [facility] 02:00:15 81239 tramadol medicatio n Not available Not available Not available 10/02/2024 81565 RxNorm Tung Sams [place] [facility] 5 02:00:19 Medications Name Sig Start Date Stop Date Status Note LastModified by Organization Details LastModified Time celecoxib 200 mg capsule Take 1 capsule every 12 hours by oral route as needed. active Not Available Not Available No t Available Miralax 17 gram/dose oral powder Take 17 g every day by oral route. active Not Available Not Available No t Available Ferrex 150 mg iron capsule TAKE 1 CAPSULE BY MOUTH TWICE A DAY 2024 active Not Available Not Available Not Avai lable Senna S 50 mg-8.6 mg tablet Take 2 tablets every day by oral route. 10/06 completed Not Available Not Available Not Available omeprazole 40 mg capsule,del ayed release Take 1 capsule every day by oral route. active Not Available Not Available No t Available acetaminoph en 500 mg tablet Take 2 tablets every 8 hours by oral route. active Not Available Not Available No t Available hydrocortis one 1 % topical cream Apply 1 applicati on twice a day by topical route as needed. active Not Available Not Available No t Available ferrous sulfate 325 mg (65 mg iron) tablet Take 1 tablet every day by oral route. 10/06 completed Not Available Not Available Not Available ascorbic acid (vitamin C) 500 mg chewable tablet Take 1 tablet every day by oral route. active Not Available Not Available No t Available aspirin 81 mg tablet Take 1 tablet twice a day by oral route for 35 days. active Stop Date: 11/10 Not Available Not Available Not Available lisinopril 5 mg tablet Take 1 tablet every day by oral route. active Not Available Not Available No t Available ondansetron 4 mg disintegrat ing tablet Place 1 tablet every 6 hours by oral route as needed. active Not Available Not Available No t Available ezetimibe 10 mg tablet Take 1 tablet every day by oral route. active Not Available Not Available No t Available rosuvastati n 40 mg tablet Take 1 tablet every day by oral route. active Not Available Not Available No t Available duloxetine 30 mg capsule,del ayed release Take 1 capsule every day by oral route. active Not Available Not Available No t Available cholecalcif barbie (vitamin D3) 25 mcg (1,000 unit) tablet Take 1 unit every day by oral route. active Not Available Not Available No t Available Antiseptic Skin Cleanser (chlorhexid ine) 4 % liquid Apply 1 applicati on as needed by topical route. 10/03 completed Not Available Not Available Not Available Stimulant Laxative Plus 8.6 mg-50 mg tablet Take 2 tablets every day by oral route. active Not Available Not Available No t Available Vitals Date Recorded Body height Heart rate Body temperature Respiratory rate Oxygen saturation Body mass index (BMI) Body weight Systolic And Diastolic Provider Name and Address Organization Details Last Updated DateTime 162.56 cm 82 /min 98 [degF] 18 /min 96 % 27.3 kg/m2 38928.1 9 g 135/55 mm[Hg] [place] [address] [place], [address], [place] [employer] [facility] [employer] 17:58:35 Date Recorded Body height Heart rate Body temperature Respiratory rate Oxygen saturation Body mass index (BMI) Body weight Systolic And Diastolic Provider Name and Address Organization Details Last Updated DateTime 162.56 cm 71 /min 97.8 [degF] 20 /min 97 % 27.1 kg/m2 01333.5 2 g 114/54 mm[Hg] [place] [address] [place], [address], [place] [employer] [facility] [email or web address] 10:28:35 Date Recorded Body height Heart rate Body temperature Respiratory rate Oxygen saturation Body mass index (BMI) Body weight Systolic And Diastolic Provider Name and Address Organization Details Last Updated DateTime 5 162.56 cm 75 /min 97.4 [degF] 18 /min 98 % 28 kg/m2 07869.9 9 g 117/69 mm[Hg] [place] [address] [place], [address] , [place] [employer] [facility] [employer] 09:46:52 Date Recorded Body height Heart rate Body temperature Respiratory rate Oxygen saturation Body mass index (BMI) Body weight Systolic And Diastolic Provider Name and Address Organization Details Last Updated DateTime 5 162.56 cm 89 /min 98.5 [degF] 18 /min 96 % 28.2 kg/m2 21007.1 5 g 111/64 mm[Hg] [place] [address] [place], [address], [place] [employer] [facility] [employer] 10:35:01 Date Recorded Body height Heart rate Body temperature Respiratory rate Oxygen saturation Body mass index (BMI) Body weight Systolic And Diastolic Provider Name and Address Organization Details Last Updated DateTime 162.56 cm 72 /min 97.8 [degF] 16 /min 95 % 28.5 kg/m2 57053.6 1 g 128/74 mm[Hg] Malia Hitchcock, [facility] [address] [place], [address], [place] [facility] 09:56:33 Social History Question Answer Notes LastModified by [employer] Details LastModified Time Tobacco Smoking Status Never Smoker Chun Iniguez null, [place] [facility] 10/02/2024 10:10:29 What Is Your Code Status? Full Code [email or web address] Information not available 10/02/2024 Sex: Unknown Functional Status Question Answer Note LastModified by [employer] Details LastModified Time Do you use any illicit or recreational drugs? No [email or web address] Information not available 10/02/2024 What is your level of alcohol consumption? None [email or web address] Information not available 10/03/2024 Mental Status None recorded. Family History Relationship Description Onset Age of this Age Resolved Age Notes LastModified by Organization Details LastModified Time Mother Hypertensive disorder [email or web address] Not available 2024 10:10:50 Mother Cerebrovascu lar accident [email or web address] Not available 08/2024 10:11:00 Father Pulmonary emphysema [email or web address] Not available 2024 10:11:24 Father Chronic obstructive pulmonary disease [email or web address] Not available 2024 10:11:31 Sister Hypertensive disorder [email or web address] Not available 2024 10:11:38 Brother Heart disease [email or web address] Not available 2024 10:11:56 Maternal Aunt Malignant neoplasm of breast [email or web address] Not available 2024 10:12:12 Unspecified Relation Family history of malignant neoplasm of ovary [email or web address] Not available 2024 10:12:37 Medical History Condition Response Psychiatric -- Anxiety Disorder Y Osteoarthritis / DJD Y Obesity Y Carotid Stenosis Y GERD / Reflux Y Diverticulosis Y Hyperlipidemia Y Psychiatric -- Depression Y Hypertension Y Gynecological HistoryNo gynecological history recorded. Obstetrics History GPAL:G 0 P 0 0 0 0 Past Encounters Encounter ID Performer Location Encounter Start Date Encounter Closed Date Diagnosis/Indication Diagnosis SNOMED-CT Code Diagnosis ICD10 Code Diagnosis IMO Codes Diagnosis Note [id number] Kylee Morton, [address] [place] [address] 10/02/2024 06:02:29 10/12/2024 02:21:52 Osteonecrosis of hip 647024433 M87.051 [id number] s/p right total hip arthroplas ty 09/[address] Era Bloom RLE, anterior hip precaution scontinue to monitor wound - zipline closure to remain until f/u appointmen tASA BID for DVT prophylaxi s - will need to clarify treatment duration with orthowill continue Celebrex for now but only prn - some concern with use of this and her reported severe sulfa allergy. However, daughter reports she has taken this medication without issues previously . She did receive Celebrex in the hospital 09/30 and 10/01. Would also cautiously use this medication with anemia and BID ASA use.Avoidi ng any stronger pain medication s for nowTherapi es to be initiatedf u with ortho as scheduled 10/21 1430 and 11/25 1315 Essential hypertension 06398883 I10 10815 stable - continue lisinopril daughter concerned with / reports low diastolic blood pressures while in the hospital and on admission herewill add hold parameters for SALVATORE, may need to dose reduce Hyperlipidemia 35738160 E78.5 02882571 presumed stablecont inue zetia and statin therapy Mild major depression, single episode 02829402 F32.0 1776718002 continue duloxetine - monitor for need to dose adjust Generalize d anxiety disorder 24326376 F41.1 93620 as above..... ..... Gastroesop hageal reflux disease without esophagitis 069442243 K21.9 182263 stable, continue ppi therapy and prn zofran Anemia 372027929 D64.9 620138 she did not require blood transfusio n during her inpatient staycontin ue oral iron replacemen t and trend CBC - use NSAIDS cautiously check B12 with AM lab draw Slow trans it constipation 95603270 K59.01 8838 continue miralax - daughter reports some loose stools prior to hospital discharge so will decrease senna s to only daily for now. The patient does take miralax daily as an outpatient Disorientated 78849049 R 41.0 315485 etiology is thought to be related to recent surgery/an esthesia and pain medication Family would like to avoid all pain meds/narco tics to include neurontin and ultrammoni tor closely for reversible causes - labs in am, of note, she did not have a UA done during her inpatient stay and has a history of UTIs - monitor clinically History of skin disorder 664902423 Z87.2 2328884 patient with a history of severe sulfa allergy and very sensitive skin with itching - her hip surgery actually had to be postponed due to a severe rash. Hydrocorti sone is ordered prn Physical deconditioning 3798932553 9102 R53.81 255364 related to advanced age, recent surgery, comorbidit iestherapi es to be initiated - the patient will return home with family support upon d/c from [facility] [id number] Kylee Morton DO [address] [address] 10/06/2024 10:32:00 10/12/2024 02:18:52 Osteonecrosis of hip 790828365 M87.051 [id number] s/p right total hip arthroplas ty on 09/29/[address] Hernandez.WB AT to RLE with anterior hip precaution s.Continue to monitor incision - zipline closure to remain until f/u appointmen t.Continue ASA BID for DVT prophylaxi s - Nursing to clarify stop date with orthopedic s.Continue routine APAP for pain.D/C Celebrex if not used by next visit. Avoiding any stronger pain medication s for now.Contin ue therapies. F/U with Dr. Hernandez (ortho) on 10/21 and 11/25. Essential hypertension 14563015 I10 75927 Stable. Continue Lisinopril .Continue to trend blood pressures, monitor lytes and renal function, and adjust meds as clinically indicated. Hyperlipidemia 19608012 E78.5 49092508 Presumed stable. Continue Zetia and Statin. Generalize d anxiety disorder 60146736 F41.1 70270 Mildly anxious, redirectab le. Continues on Duloxetine alone. Monitor for need for dose adjustment . Gastroesop hageal reflux disease without esophagitis 418640957 K21.9 472116 Stable. Continue PPI and PRN Zofran. Anemia 185762572 D64.9 280098 Did not require blood transfusio n during her inpatient stay.Cheryl nue Ferrex and trend CBC. Slow trans it constipation 04082557 K59.01 8838 Stable. Continue Miralax and Senna S. Disorientated 16899424 R 41.0 638794 Etiology is thought to be related to recent surgery/an esthesia and pain medication .Family would like to avoid all pain meds/narco tics, including Neurontin and Tramadol.M onitor closely for reversible causes.She did not have a UA done during her inpatient stay and has a history of UTIs. Monitor clinically and check should symptoms arise. History of skin disorder 304662584 Z87.2 6314279 Patient with a history of severe sulfa allergy and very sensitive skin with itching. Her hip surgery actually had to be postponed due to a severe rash. Continue PRN Hydrocorti sone. No concerns at present. Physical deconditioning 1501484988 9102 R53.81 196856 Related to advanced age, recent surgery, comorbidit ies.Contin ue therapies & monitor progress. Pt will return home with family support upon d/c from SNF. Recurrent falls 76347764 2 R29.6 6822521 Fall precaution s in place.Cont inue therapies. Unfortunat elma pt's cognitive status makes prevention difficult, as pt continuall y attempts to stand without asking for help. Recurrent major depressive episodes, mild 061811342 F33.0 88777465 SEE ABOVE... Edema of l ower extremity 818366610 R60.0 81108 Add compressio n to BLE on AM off PM. [id number] Kylee Morton, [facility] [address] [place] [address] 10/08/2024 09:28:32 10/12/2024 02:19:42 Osteonecrosis of hip 088630056 M87.051 [id number] s/p right total hip arthroplas ty on 09/29/[address] Hernandez.WB AT to RLE with anterior hip precaution s.Continue to monitor incision - zipline closure to remain until f/u appointmen t.Continue ASA BID for DVT prophylaxi s - Nursing to clarify stop date with orthopedic s.Continue routine APAP for pain.D/C Celebrex if not used by next visit. Avoiding any stronger pain medication s for now.Contin ue therapies. F/U with Dr. Hernandez (ortho) on 10/21 and 11/25. Anemia 328395978 D64.9 830822 Did not require blood transfusio n during her inpatient stay.Cheryl nue Ferrex and trend CBC. Edema of l ower extremity 648675842 R60.0 08330 Improved. Continue compressio n to BLE on AM off PM.Note, at appts with PCP in May and July 2024 she weighed 171 and 175 lbs respective ly. Disorientated 21262877 R 41.0 728036 Etiology is thought to be related to recent surgery/an esthesia and pain medication .Family would like to avoid all pain meds/narco tics, including Neurontin and Tramadol.M onitor closely for reversible causes.She did not have a UA done during her inpatient stay and has a history of UTIs. Monitor clinically and check should symptoms arise. Generalize d anxiety disorder 27698273 F41.1 50667 Mildly anxious, redirectab le. Continues on Duloxetine alone. Monitor for need for dose adjustment . Recurrent major depressive episodes, mild 133454151 F33.0 80561260 SEE ABOVE... Essential hypertension 64486206 I10 33737 Stable. Continue Lisinopril .Continue to trend blood pressures, monitor lytes and renal function, and adjust meds as clinically indicated. Hyperlipidemia 36126074 E78.5 93517801 Presumed stable. Continue Zetia and Statin. Gastroesop hageal reflux disease without esophagitis 291856693 K21.9 385384 Stable. Continue PPI and PRN Zofran. Slow trans it constipation 73875712 K59.01 8838 Stable. Continue Miralax and Senna S. History of skin disorder 729923101 Z87.2 1149577 Patient with a history of severe sulfa allergy and very sensitive skin with itching. Her hip surgery actually had to be postponed due to a severe rash. Continue PRN Hydrocorti sone. No concerns at present. Recurrent falls 38619018 2 R29.6 3218362 Fall precaution s in place.Cont inue therapies. Unfortunat elma pt's cognitive status makes prevention difficult, as pt continuall y attempts to stand without asking for help. Physical deconditioning 9652450328 9102 R53.81 537310 Related to advanced age, recent surgery, comorbidit ies.Contin ue therapies & monitor progress. Pt will return home with family support upon d/c from SNF. [id number] Kylee Morton DO [address] [address] [place] [address] 10/10/2024 09:46:25 10/12/2024 02:20:19 Osteonecrosis of hip 822435506 M87.051 30885006 s/p right total hip arthroplas ty on 09/29/[address] Hernandez.WB AT to RLE with anterior hip precaution s.Continue to monitor incision - zipline closure to remain until f/u appointmen t.Continue ASA BID for DVT prophylaxi s through 11/10.Cheryl nue routine APAP & PRN Celebrex for pain. Would like to d/c Celebrex as soon as able, however family does not want alternativ e medication s for pain utilized due to concerns will exacerbate confusion. Continue therapies. F/U with Dr. Hernandez (ortho) on 10/21 and 11/25. Anemia 682499977 D64.9 260837 Did not require blood transfusio n during her inpatient stay.Cheryl nue Ferrex and trend CBC. Edema of l ower extremity 172711761 R60.0 70662 Improved. Continue compressio n to BLE on AM off PM.Note, at appts with PCP in May and July 2024 she weighed 171 and 175 lbs respective ly. Disorientated 29551635 R 41.0 008436 Etiology is thought to be related to recent surgery/an esthesia and pain medication .Family would like to avoid all pain meds/narco tics, including Neurontin and Tramadol.M onitor closely for reversible causes.She did not have a UA done during her inpatient stay and has a history of UTIs. Monitor clinically and check should symptoms arise. Generalize d anxiety disorder 01293180 F41.1 76695 Mildly anxious, redirectab le. Continues on Duloxetine alone. Monitor for need for dose adjustment . Recurrent major depressive episodes, mild 086941139 F33.0 57547340 SEE ABOVE... Essential hypertension 79486146 I10 22618 Stable. Continue Lisinopril .Continue to trend blood pressures, monitor lytes and renal function, and adjust meds as clinically indicated. Hyperlipidemia 35373923 E78.5 44621652 Presumed stable. Continue Zetia and Statin. Gastroesop hageal reflux disease without esophagitis 079683659 K21.9 034785 Stable. Continue PPI and PRN Zofran. Slow trans it constipation 02515614 K59.01 8838 Stable. Continue Miralax and Senna S. History of skin disorder 603242581 Z87.2 6998750 Patient with a history of severe sulfa allergy and very sensitive skin with itching. Her hip surgery actually had to be postponed due to a severe rash. Continue PRN Hydrocorti sone. No concerns at present. Recurrent falls 19388109 2 R29.6 4468541 Fall precaution s in place.Cont inue therapies. Unfortunat elma pt's cognitive status makes prevention difficult, as pt continuall y attempts to stand without asking for help. Physical deconditioning 9705042726 9102 R53.81 135350 Related to advanced age, recent surgery, comorbidit ies.Contin ue therapies & monitor progress. Pt will return home with family support upon d/c from [facility]. [id number] Kylee Morton, [address] [address] 10/14/2024 09:22:10 10/15/2024 10:05:24 Osteonecrosis of hip 102686690 M87.051 76698070 s/p right total hip arthroplas ty on 09/29/[address] Hernandez.WB AT to RLE with anterior hip precaution s.Continue to monitor incision - zipline closure to remain until f/u appointmen t.Continue ASA BID for DVT prophylaxi s through 11/10.Cheryl nue routine APAP & PRN Celebrex for pain. Would like to d/c Celebrex as soon as able, however family does not want alternativ e medication s for pain utilized due to concerns will exacerbate confusion. Continue therapies. F/U with Dr. Hernandez (ortho) on 10/21 and 11/25. Anemia 417522119 D64.9 257829 Did not require blood transfusio n during her inpatient stay.Cheryl nue Ferrex and trend CBC. Edema of l ower extremity 870475984 R60.0 36358 Improved. Continue compressio n to BLE on AM off PM.Note, at appts with PCP in May and July 2024 she weighed 171 and 175 lbs respective ly. Disorientated 90624849 R 41.0 704085 Etiology is thought to be related to recent surgery/an esthesia and pain medication .Family would like to avoid all pain meds/narco tics, including Neurontin and Tramadol.M onitor closely for reversible causes.She did not have a UA done during her inpatient stay and has a history of UTIs. Monitor clinically and check should symptoms arise. Generalize d anxiety disorder 15931702 F41.1 34724 Mildly anxious, redirectab le. Continues on Duloxetine alone. Monitor for need for dose adjustment . Recurrent major depressive episodes, mild 774244157 F33.0 90925674 SEE ABOVE... Essential hypertension 59362035 I10 25077 Stable. Continue Lisinopril .Continue to trend blood pressures, monitor lytes and renal function, and adjust meds as clinically indicated. Hyperlipidemia 34409910 E78.5 24834222 Presumed stable. Continue Zetia and Statin. Gastroesop hageal reflux disease without esophagitis 126636094 K21.9 145158 Stable. Continue PPI and PRN Zofran. Slow trans it constipation 28313400 K59.01 8838 Stable. Continue Miralax and Senna S. History of skin disorder 294224153 Z87.2 4688199 Patient with a history of severe sulfa allergy and very sensitive skin with itching. Her hip surgery actually had to be postponed due to a severe rash. Continue PRN Hydrocorti sone. No concerns at present. Recurrent falls 02336082 2 R29.6 0438611 Fall precaution s in place.Cont inue therapies. Unfortunat elma pt's cognitive status makes prevention difficult, as pt continuall y attempts to stand without asking for help. Physical deconditioning [id number] 9102 R53.81 392599 Related to advanced age, recent surgery, comorbidit ies.Contin ue therapies & monitor progress. Pt will return home with family support upon d/c from [facility]. [id number] Kylee Jazminperla, DO [place] [address] [place] [address] 10/16/2024 09:37:58 10/27/2024 08:56:15 Osteonecrosis of hip 046419705 M87.051 [id number] s/p right total hip arthroplas ty on 09/29/[address] Hernandez.WB AT to RLE with anterior hip precaution s.Continue to monitor incision - zipline closure to remain until f/u appointmen t.Continue ASA BID for DVT prophylaxi s through 11/10.Cheryl nue routine APAP & PRN Celebrex for pain. Would like to d/c Celebrex as soon as able, however family does not want alternativ e medication s for pain utilized due to concerns will exacerbate confusion. Continue therapies. F/U with Dr. Hernandez (ortho) on 10/21 and 11/25. Anemia 260014222 D64.9 088858 Did not require blood transfusio n during her inpatient stay.Cheryl nue Ferrex and trend CBC. Edema of l ower extremity 589146685 R60.0 38589 Improved. Continue compressio n to BLE on AM off PM.Note, at appts with PCP in May and July 2024 she weighed 171 and 175 lbs respective ly. Disorientated 43810636 R 41.0 278737 Etiology is thought to be related to recent surgery/an esthesia and pain medication .Family would like to avoid all pain meds/narco tics, including Neurontin and Tramadol.M onitor closely for reversible causes.She did not have a UA done during her inpatient stay and has a history of UTIs. Monitor clinically and check should symptoms arise. Generalize d anxiety disorder 12216716 F41.1 98840 Mildly anxious, redirectab le. Continues on Duloxetine alone. Monitor for need for dose adjustment . Recurrent major depressive episodes, mild 489055888 F33.0 97258039 SEE ABOVE... Essential hypertension 20050593 I10 00824 Stable. Continue Lisinopril .Continue to trend blood pressures, monitor lytes and renal function, and adjust meds as clinically indicated. Hyperlipidemia 23958857 E78.5 37586274 Presumed stable. Continue Zetia and Statin. Gastroesop hageal reflux disease without esophagitis 360617274 K21.9 099513 Stable. Continue PPI and PRN Zofran. Slow trans it constipation 06255597 K59.01 8838 Stable. Continue Miralax and Senna S. History of skin disorder 283222518 Z87.2 9424904 Patient with a history of severe sulfa allergy and very sensitive skin with itching. Her hip surgery actually had to be postponed due to a severe rash. Continue PRN Hydrocorti sone. No concerns at present. Recurrent falls 74112392 2 R29.6 1189194 Fall precaution s in place.Cont inue therapies. Unfortunat elma pt's cognitive status makes prevention difficult, as pt continuall y attempts to stand without asking for help. Physical deconditioning 1474851589 9102 R53.81 413531 Related to advanced age, recent surgery, comorbidit ies.Contin ue therapies & monitor progress. Pt will return home with family support upon d/c from SNF. 066712 Kylee Morton, DO [address] [address] 10/20/2024 09:16:13 10/27/2024 08:56:40 Osteonecrosis of hip 662784531 M87.051 48586764 s/p right total hip arthroplas ty on 09/29/[address] Hernandez.WB AT to RLE with anterior hip precaution s.Continue to monitor incision - zipline closure to remain until f/u appointmen t.Continue ASA BID for DVT prophylaxi s through 11/10.Cheryl nue routine APAP & PRN Celebrex for pain. Would like to d/c Celebrex as soon as able, however family does not want alternativ e medication s for pain utilized due to concerns will exacerbate confusion. Continue therapies. F/U with Dr. Hernandez (ortho) on 10/21 and 11/25. Anemia 034210864 D64.9 155129 Did not require blood transfusio n during her inpatient stay.Cheryl nue Ferrex and trend CBC. Edema of l ower extremity 074483383 R60.0 76170 Improved. Continue compressio n to BLE on AM off PM.Note, at appts with PCP in May and July 2024 she weighed 171 and 175 lbs respective ly. Disorientated 08070842 R 41.0 831094 Etiology is thought to be related to recent surgery/an esthesia and pain medication .Family would like to avoid all pain meds/narco tics, including Neurontin and Tramadol.M onitor closely for reversible causes.She did not have a UA done during her inpatient stay and has a history of UTIs. Monitor clinically and check should symptoms arise. Generalize d anxiety disorder 62027933 F41.1 56707 Mildly anxious, redirectab le. Continues on Duloxetine alone. Monitor for need for dose adjustment . Recurrent major depressive episodes, mild 878437379 F33.0 41468694 SEE ABOVE... Essential hypertension 22502153 I10 62090 Stable. Continue Lisinopril .Continue to trend blood pressures, monitor lytes and renal function, and adjust meds as clinically indicated. Hyperlipidemia 21167711 E78.5 11357062 Presumed stable. Continue Zetia and Statin. Gastroesop hageal reflux disease without esophagitis 838949343 K21.9 026896 Stable. Continue PPI and PRN Zofran. Slow trans it constipation 14699379 K59.01 8838 Stable. Continue Miralax and Senna S. History of skin disorder 566551615 Z87.2 8202819 Patient with a history of severe sulfa allergy and very sensitive skin with itching. Her hip surgery actually had to be postponed due to a severe rash. Continue PRN Hydrocorti sone. No concerns at present. Recurrent falls 52822822 2 R29.6 5137490 Fall precaution s in place.Cont inue therapies. Unfortunat elma pt's cognitive status makes prevention difficult, as pt continuall y attempts to stand without asking for help. Physical deconditioning 4351120186 9102 R53.81 398353 Related to advanced age, recent surgery, comorbidit ies.Contin ue therapies & monitor progress. Pt will return home with family support upon d/c from SNF. [id number] Kylee Morton DO [place] [address] [address] [facility] [place] [address] 10/22/2024 10:11:38 10/27/2024 08:57:28 Osteonecrosis of hip 659381131 M87.051 65940688 s/p right total hip arthroplas ty on 09/29/[address] Hernandez.WB AT to RLE with anterior hip precaution s.Continue to monitor incision - zipline closure to remain until f/u appointmen t.Continue ASA BID for DVT prophylaxi s through 11/10.Cheryl nue routine APAP & PRN Celebrex for pain. Would like to d/c Celebrex as soon as able, however family does not want alternativ e medication s for pain utilized due to concerns will exacerbate confusion. Continue therapies. F/U with Dr. Hernandez (ortho) on 10/21 (remote visit) with NNO, continue compressio n of BLE, PRN ice, and therapies. Will f/u next on 11/25. Anemia 911583791 D64.9 095848 Did not require blood transfusio n during her inpatient stay.Cheryl nue Ferrex and trend CBC. Edema of l ower extremity 159746298 R60.0 59494 Improved. Continue compressio n to BLE on AM off PM.Note, at appts with PCP in May and July 2024 she weighed 171 and 175 lbs respective ly. Essential hypertension 17512002 I10 28110 Stable. Continue Lisinopril .Continue to trend blood pressures, monitor lytes and renal function, and adjust meds as clinically indicated. Hyperlipidemia 92960434 E78.5 18514173 Presumed stable. Continue Zetia and Statin. Gastroesop hageal reflux disease without esophagitis 134904640 K21.9 798194 Stable. Continue PPI and PRN Zofran. Slow trans it constipation 76077259 K59.01 8838 Stable. Continue Miralax and Senna S. Disorientated 90444895 R 41.0 482116 Etiology is thought to be related to recent surgery/an esthesia and pain medication .Family would like to avoid all pain meds/narco tics, including Neurontin and Tramadol.M onitor closely for reversible causes.She did not have a UA done during her inpatient stay and has a history of UTIs. Monitor clinically and check should symptoms arise. Generalize d anxiety disorder 52063476 F41.1 64184 Mildly anxious, redirectab le. Continues on Duloxetine alone. Monitor for need for dose adjustment . Recurrent major depressive episodes, mild 097606564 F33.0 15132979 SEE ABOVE... History of skin disorder 477073529 Z87.2 9230107 Patient with a history of severe sulfa allergy and very sensitive skin with itching. Her hip surgery actually had to be postponed due to a severe rash. Continue PRN Hydrocorti sone. No concerns at present. Recurrent falls 63904325 2 R29.6 5291073 Fall precaution s in place.Cont inue therapies. Unfortunat elma pt's cognitive status makes prevention difficult, as pt continuall y attempts to stand without asking for help. Physical deconditioning 9825853020 9102 R53.81 191827 Related to advanced age, recent surgery, comorbidit ies.Contin ue therapies & monitor progress. Pt will return home with family support upon d/c from SNF. 123500 Kylee Morton, DO [address] [address] 10/24/2024 09:23:38 11/05/2024 08:57:25 Osteonecrosis of hip 707720511 M87.051 50604068 s/p right total hip arthroplas ty on 09/29/[address] Hernandez.WB AT to RLE with anterior hip precaution s.Continue to monitor incision - zipline closure removed, nursing are now covering with DD daily.Cont inues ASA BID for DVT prophylaxi s through 11/10.Cheryl nue routine APAP & PRN Celebrex for pain. Would like to d/c Celebrex as soon as able, however family does not want alternativ e medication s for pain utilized due to concerns will exacerbate confusion. Continue therapies. F/U with Dr. Hernandez (ortho) on 10/21 (remote visit) with NNO, continue compressio n of BLE, PRN ice, and therapies. Will f/u next on 11/25. Anemia 667166539 D64.9 898079 Did not require blood transfusio n during her inpatient stay.Cheryl nue Ferrex and trend CBC. Edema of l ower extremity 859269793 R60.0 92503 Improved. Continue compressio n to BLE on AM off PM.Note, at appts with PCP in May and July 2024 she weighed 171 and 175 lbs respective ly. Essential hypertension 83395748 I10 91351 Stable. Continue Lisinopril .Continue to trend blood pressures, monitor lytes and renal function, and adjust meds as clinically indicated. Hyperlipidemia 95131094 E78.5 19390958 Presumed stable. Continue Zetia and Statin. Gastroesop hageal reflux disease without esophagitis 030537985 K21.9 353549 Stable. Continue PPI and PRN Zofran. Slow trans it constipation 11555593 K59.01 8838 Stable. Continue Miralax and Senna S. Disorientated 94004923 R 41.0 971899 Etiology is thought to be related to recent surgery/an esthesia and pain medication .Family would like to avoid all pain meds/narco tics, including Neurontin and Tramadol.M onitor closely for reversible causes.She did not have a UA done during her inpatient stay and has a history of UTIs. Monitor clinically and check should symptoms arise. Generalize d anxiety disorder 50593198 F41.1 82227 Mildly anxious, redirectab le. Continues on Duloxetine alone. Monitor for need for dose adjustment . Recurrent major depressive episodes, mild 157310670 F33.0 95973744 SEE ABOVE... History of skin disorder 418597659 Z87.2 1445400 Patient with a history of severe sulfa allergy and very sensitive skin with itching. Her hip surgery actually had to be postponed due to a severe rash. Continue PRN Hydrocorti sone. No concerns at present. Recurrent falls 39451501 2 R29.6 4268444 Fall precaution s in place.Cont inue therapies. Unfortunat elma pt's cognitive status makes prevention difficult, as pt continuall y attempts to stand without asking for help. Physical deconditioning 4506244660 9102 R53.81 695154 Related to advanced age, recent surgery, comorbidit ies.Contin ue therapies & monitor progress. Pt will return home with family support upon d/c from SNF. Health Concerns Section Related Observation LastModified by Organization Detai ls LastModified Time None Recorded Concern Status LastModified by Organization Details LastModified Time None Recorded Advance Directives Directive None Recorded Payers Insurance Date Sequence Insurance Name Policy Number Policy Contreras Covered Member ID Contreras Member ID Guarantor Name 11/05/2024 1 [facility] (MEDICARE REPLACEMENT HMO) [id number] Arina Hernandez [id number] Arina Hernandez 10/02/2024 1 *SELF PAY* Dorys Hernandez Notes Date Note Type Note Provider Name and Address Organization Details Recorded Time 10/14/2024 text/html ROS as noted in the HPI F/U elective right total hip arthroplasty due to avascular necrosis, post-operative confusion & anemia, and chronic medical conditions.---10/01/24T he patient is up in her bedside chair this afternoon. Her daughter is at the bedside and able to provide a history and interpret during this exam. The patient is very tired after her trip from the hospital. Aside from her right hip pain and wanting to rest, she is without complaints or concerns.---10/06/24Dorys kahn is seated in a recliner in the common area, a high fall risk as she continues to try to get up without staff assistance despite frequent reminders. She is noted to do this after my examination, staff is able to intervene and help her transfer to a w/c and to the dining table. She has fallen twice, on 10/03 & 10/04, without injury. Both times, pt stood up and attempted to ambulate without calling for staff. Since then, staff have been attempting to keep her in the living room for close observation. Arina speaks in broken Vietnamese but is able to communicate that she is concerned with her BLE swelling (R>L) and that this is unusual for her. She continually tells me in an anxious manner that her right leg doesn't work and that she wants to get up and go. She repeats her dislike for sitting around multiple times and that she wants to move. I attempt to relay to her the normal process following a total hip replacement and that her muscles are weakened from the surgery and will take time to heal, during which we will utilize therapy to build her strength back up. It is unclear whether she understands as she continues to appear mildly anxious and confused. VSS. Staff is without concerns beyond fall risk above, for which fall preventions are in place. No therapy notes available since 10/03.---10/08/24Arina is seated in her recliner in the common, her daughter at her side and able to translate during my visit both ways. She reports she feels her mother is doing well, acknowledges she has pain to her right hip, especially with ambulation, but believes it is well-managed on current regimen. Pt is currently with ice pack in place. Arina is pleasant, denies concerns today. She does ask me if she can have a weems catheter placed so she doesn't have to get up to urinate. I explain the reasoning why this is not best practice and she expresses understanding. VSS. Staff is without concerns today. Per therapy notes = Conducted gait training with FWW ~5 steps encouragement to continue task. pt limited distance.Maxwell. sit/stand from toilet and from wc CGA cues for safety. pvt transfer toilet/wc Maxwell of 1 . standing balance techniques with tolerance up to 2 minutes . pt speaks [place] and has difficulty following instruction.---Arina is doing well today, seated in her recliner, reports she is constipated but has received Miralax from nursing. Her daughter is at bedside to translate for me. Arina continues to report discomfort to her right hip but pain is managed and she improving with therapy, walking longer distances. VSS. Staff is without concerns today.---10/14/24Arina is seated in a recliner in the common area, no family available for translation, but she is able to make her concerns to me known -- namely the edema of her BLE. Pt had been refusing compression wraps but staff was able to convince her to wear them today. She has them elevated when at rest when able. Staff remain keeping her close for increased observation. VSS. Staff is without concerns today. Per therapy notes = Patient ambulated 40 ft on level surfaces with a FWW, requiring CGA. Pt reported increased leg pain this date, nursing aware. Limited distances due to pain. Malia Hitchcock, [facility] [address] [facility], [place], [address], [facility] - [facility] 10/14/2024 18:03:42 10/16/2024 text/html ROS as noted in the HPI F/U elective right total hip arthroplasty due to avascular necrosis, post-operative confusion & anemia, and chronic medical conditions.---10/01/24T he patient is up in her bedside chair this afternoon. Her daughter is at the bedside and able to provide a history and interpret during this exam. The patient is very tired after her trip from the hospital. Aside from her right hip pain and wanting to rest, she is without complaints or concerns.---10/06/24Dorys kahn is seated in a recliner in the common area, a high fall risk as she continues to try to get up without staff assistance despite frequent reminders. She is noted to do this after my examination, staff is able to intervene and help her transfer to a w/c and to the dining table. She has fallen twice, on 10/03 & 10/04, without injury. Both times, pt stood up and attempted to ambulate without calling for staff. Since then, staff have been attempting to keep her in the living room for close observation. Arina speaks in broken Vietnamese but is able to communicate that she is concerned with her BLE swelling (R>L) and that this is unusual for her. She continually tells me in an anxious manner that her right leg doesn't work and that she wants to get up and go. She repeats her dislike for sitting around multiple times and that she wants to move. I attempt to relay to her the normal process following a total hip replacement and that her muscles are weakened from the surgery and will take time to heal, during which we will utilize therapy to build her strength back up. It is unclear whether she understands as she continues to appear mildly anxious and confused. VSS. Staff is without concerns beyond fall risk above, for which fall preventions are in place. No therapy notes available since 10/03.---10/08/24Arina is seated in her recliner in the common, her daughter at her side and able to translate during my visit both ways. She reports she feels her mother is doing well, acknowledges she has pain to her right hip, especially with ambulation, but believes it is well-managed on current regimen. Pt is currently with ice pack in place. Arina is pleasant, denies concerns today. She does ask me if she can have a weems catheter placed so she doesn't have to get up to urinate. I explain the reasoning why this is not best practice and she expresses understanding. VSS. Staff is without concerns today. Per therapy notes = Conducted gait training with FWW ~5 steps encouragement to continue task. pt limited distance.Maxwell. sit/stand from toilet and from wc CGA cues for safety. pvt transfer toilet/wc Maxwell of 1 . standing balance techniques with tolerance up to 2 minutes . pt speaks [place] and has difficulty following instruction.---Arina is doing well today, seated in her recliner, reports she is constipated but has received Miralax from nursing. Her daughter is at bedside to translate for me. Arina continues to report discomfort to her right hip but pain is managed and she improving with therapy, walking longer distances. VSS. Staff is without concerns today.---10/14/24Arina is seated in a recliner in the common area, no family available for translation, but she is able to make her concerns to me known -- namely the edema of her BLE. Pt had been refusing compression wraps but staff was able to convince her to wear them today. She has them elevated when at rest when able. Staff remain keeping her close for increased observation. VSS. Staff is without concerns today. Per therapy notes = Patient ambulated 40 ft on level surfaces with a FWW, requiring CGA. Pt reported increased leg pain this date, nursing aware. Limited distances due to pain.---10/16/24Arina is seated in her recliner in the common area, doing well today, but is later seen attempting to stand up independently without attempting to speak to anyone because she needs to use the restroom. A nearby patient has stopped her and I remind her to wait until help can be obtained. A PRINCIPAL BIOSTATISTICIAN quickly comes to assist her. For this reason, staff continues to keep a very close eye on her. VSS. Staff is without concerns. Per therapy notes = Patient ambulated 200 ft on level surfaces with a FWW, requiring CGA. Patient required cueing for navigation. Pt performed sit to stand to FWW requiring CGA. Malia Hitchcock, [facility] [address] [facility], [place], [phone], [facility] - [facility] 10/16/2024 15:04:50 10/20/2024 text/html ROS as noted in the HPI F/U elective right total hip arthroplasty due to avascular necrosis, post-operative confusion & anemia, and chronic medical conditions.---10/01/24 he patient is up in her bedside chair this afternoon. Her daughter is at the bedside and able to provide a history and interpret during this exam. The patient is very tired after her trip from the hospital. Aside from her right hip pain and wanting to rest, she is without complaints or concerns.---10/06/24Dorys kahn is seated in a recliner in the common area, a high fall risk as she continues to try to get up without staff assistance despite frequent reminders. She is noted to do this after my examination, staff is able to intervene and help her transfer to a w/c and to the dining table. She has fallen twice, on 10/03 & 10/04, without injury. Both times, pt stood up and attempted to ambulate without calling for staff. Since then, staff have been attempting to keep her in the living room for close observation. Arina speaks in broken Vietnamese but is able to communicate that she is concerned with her BLE swelling (R>L) and that this is unusual for her. She continually tells me in an anxious manner that her right leg doesn't work and that she wants to get up and go. She repeats her dislike for sitting around multiple times and that she wants to move. I attempt to relay to her the normal process following a total hip replacement and that her muscles are weakened from the surgery and will take time to heal, during which we will utilize therapy to build her strength back up. It is unclear whether she understands as she continues to appear mildly anxious and confused. VSS. Staff is without concerns beyond fall risk above, for which fall preventions are in place. No therapy notes available since 10/03.---10/08/24Arina is seated in her recliner in the common, her daughter at her side and able to translate during my visit both ways. She reports she feels her mother is doing well, acknowledges she has pain to her right hip, especially with ambulation, but believes it is well-managed on current regimen. Pt is currently with ice pack in place. Arina is pleasant, denies concerns today. She does ask me if she can have a weems catheter placed so she doesn't have to get up to urinate. I explain the reasoning why this is not best practice and she expresses understanding. VSS. Staff is without concerns today. Per therapy notes = Conducted gait training with FWW ~5 steps encouragement to continue task. pt limited distance.Maxwell. sit/stand from toilet and from wc CGA cues for safety. pvt transfer toilet/wc Maxwell of 1 . standing balance techniques with tolerance up to 2 minutes . pt speaks [place] and has difficulty following instruction.---Arina is doing well today, seated in her recliner, reports she is constipated but has received Miralax from nursing. Her daughter is at bedside to translate for me. Arina continues to report discomfort to her right hip but pain is managed and she improving with therapy, walking longer distances. VSS. Staff is without concerns today.---10/14/24Arina is seated in a recliner in the common area, no family available for translation, but she is able to make her concerns to me known -- namely the edema of her BLE. Pt had been refusing compression wraps but staff was able to convince her to wear them today. She has them elevated when at rest when able. Staff remain keeping her close for increased observation. VSS. Staff is without concerns today. Per therapy notes = Patient ambulated 40 ft on level surfaces with a FWW, requiring CGA. Pt reported increased leg pain this date, nursing aware. Limited distances due to pain.---10/16/24Arina is seated in her recliner in the common area, doing well today, but is later seen attempting to stand up independently without attempting to speak to anyone because she needs to use the restroom. A nearby patient has stopped her and I remind her to wait until help can be obtained. A PRINCIPAL BIOSTATISTICIAN quickly comes to assist her. For this reason, staff continues to keep a very close eye on her. VSS. Staff is without concerns. Per therapy notes = Patient ambulated 200 ft on level surfaces with a FWW, requiring CGA. Patient required cueing for navigation. Pt performed sit to stand to FWW requiring CGA.---10/20/24Arina is seated in the recliner in the common area, resting comfortable, language barrier makes ROS difficult but she tells me she is okay today and denies pain at this time. 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 She reportedly slid out of the recliner onto the floor. VSS. Staff is without concerns today. Per therapy notes = 200 ft SBA with FWW with cues to slow gait speed for safety due to pt impuslively ambulating too quickly. Pt performs STS SBA but occasionally sits impulsively once she is mcc standing - this may be due to language barrier. Malia Hitchcock, [facility] [address], [place], [address], [place] [facility] 10/20/2024 15:05:22 10/22/2024 text/html ROS as noted in the HPI F/U elective right total hip arthroplasty due to avascular necrosis, post-operative confusion & anemia, and chronic medical conditions.---10/01/24T he patient is up in her bedside chair this afternoon. Her daughter is at the bedside and able to provide a history and interpret during this exam. The patient is very tired after her trip from the hospital. Aside from her right hip pain and wanting to rest, she is without complaints or concerns.---10/06/24Ro is seated in a recliner in the common area, a high fall risk as she continues to try to get up without staff assistance despite frequent reminders. She is noted to do this after my examination, staff is able to intervene and help her transfer to a w/c and to the dining table. She has fallen twice, on 10/03 & 10/04, without injury. Both times, pt stood up and attempted to ambulate without calling for staff. Since then, staff have been attempting to keep her in the living room for close observation. Arina speaks in broken Vietnamese but is able to communicate that she is concerned with her BLE swelling (R>L) and that this is unusual for her. She continually tells me in an anxious manner that her right leg doesn't work and that she wants to get up and go. She repeats her dislike for sitting around multiple times and that she wants to move. I attempt to relay to her the normal process following a total hip replacement and that her muscles are weakened from the surgery and will take time to heal, during which we will utilize therapy to build her strength back up. It is unclear whether she understands as she continues to appear mildly anxious and confused. VSS. Staff is without concerns beyond fall risk above, for which fall preventions are in place. No therapy notes available since 10/03.---10/08/24Rosa is seated in her recliner in the common, her daughter at her side and able to translate during my visit both ways. She reports she feels her mother is doing well, acknowledges she has pain to her right hip, especially with ambulation, but believes it is well-managed on current regimen. Pt is currently with ice pack in place. Arina is pleasant, denies concerns today. She does ask me if she can have a weems catheter placed so she doesn't have to get up to urinate. I explain the reasoning why this is not best practice and she expresses understanding. VSS. Staff is without concerns today. Per therapy notes = Conducted gait training with FWW ~5 steps encouragement to continue task. pt limited distance.Maxwell. sit/stand from toilet and from wc CGA cues for safety. pvt transfer toilet/wc Maxwell of 1 . standing balance techniques with tolerance up to 2 minutes . pt speaks [place] and has difficulty following instruction.---Arina is doing well today, seated in her recliner, reports she is constipated but has received Miralax from nursing. Her daughter is at bedside to translate for me. Arina continues to report discomfort to her right hip but pain is managed and she improving with therapy, walking longer distances. VSS. Staff is without concerns today.---10/14/24Arina is seated in a recliner in the common area, no family available for translation, but she is able to make her concerns to me known -- namely the edema of her BLE. Pt had been refusing compression wraps but staff was able to convince her to wear them today. She has them elevated when at rest when able. Staff remain keeping her close for increased observation. VSS. Staff is without concerns today. Per therapy notes = Patient ambulated 40 ft on level surfaces with a FWW, requiring CGA. Pt reported increased leg pain this date, nursing aware. Limited distances due to pain.---10/16/24Arina is seated in her recliner in the common area, doing well today, but is later seen attempting to stand up independently without attempting to speak to anyone because she needs to use the restroom. A nearby patient has stopped her and I remind her to wait until help can be obtained. A PRINCIPAL BIOSTATISTICIAN quickly comes to assist her. For this reason, staff continues to keep a very close eye on her. VSS. Staff is without concerns. Per therapy notes = Patient ambulated 200 ft on level surfaces with a FWW, requiring CGA. Patient required cueing for navigation. Pt performed sit to stand to FWW requiring CGA.---10/20/24Rosjonny is seated in the recliner in the common area, resting comfortable, language barrier makes ROS difficult but she tells me she is okay today and denies pain at this time. 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 She reportedly slid out of the recliner onto the floor. VSS. Staff is without concerns today. Per therapy notes = 200 ft SBA with FWW with cues to slow gait speed for safety due to pt impuslively ambulating too quickly. Pt performs STS SBA but occasionally sits impulsively once she is mcc standing - this may be due to language barrier.---10/22/24Ro sa is resting comfortably in the recliner in the common area, has been doing fairly well, remains without complaints overall. VSS. Staff does not report any concerns. Per therapy notes = Patient ambulated 200 ft on level surfaces with a FWW, requiring CGA. Patient required cueing for navigation and decreasing srikanth. Malia Hitchcock, [facility] [address] [place], [address], [facility] 10/22/2024 14:08:27 10/24/2024 text/html ROS as noted in the HPI 84 Y/O [place] female with a history of HTN, HLD, GERD, constipation and depression/anxiety admitted to [facility] for post acute rehab subsequent to an inpatient stay at [facility] 09/29-10/01/2024 following an elective right BUSTER per Dr. Hernandez due to AVN. No d/c summary done but per family report/review of [facility] progress notes, her post operative course has been complicated by confusion (narcotics and gabapentin d/c'd in response to this) and anemia that did not require transfusion. Hb dropped to 7.1 on 10/01 with repeat this same day 8.2. She has been started on supplemental iron. The patient lives alone in a home in [place] - family is nearby and able to assistPrior to July of this year, she was IND/caring for self. However, her right hip pain which she had x several months, became very severe making her unable to AMB. She was unable to care for herself so admitted to [facility] in [place] for >1 month prior to current surgery. She was initially receiving therapy services but these had been discontinued prior to surgery. The patient is up in her bedside chair this afternoon. Her daughter is at the bedside and able to provide a history and interpret during this exam. The patient is very tired after her trip from the hospital. Aside from her right hip pain and wanting to rest, she is without complaints or concerns. New medications: Vitamin C, ASA, Celebrex, ferrous sulfate, zofran, senna sDose adjusted meds: NONEDiscontinued medications: gabapentin (concern that this was worsening confusion) code status is fullPOAs - daughters Bobbi and Salome (at the bedside today)[place] speaks only [place]pharmacy: [facility] [place]---10/01/24 patient is up in her bedside chair this afternoon. Her daughter is at the bedside and able to provide a history and interpret during this exam. The patient is very tired after her trip from the hospital. Aside from her right hip pain and wanting to rest, she is without complaints or concerns.---10/06/24Ro is seated in a recliner in the common area, a high fall risk as she continues to try to get up without staff assistance despite frequent reminders. She is noted to do this after my examination, staff is able to intervene and help her transfer to a w/c and to the dining table. She has fallen twice, on 10/03 & 10/04, without injury. Both times, pt stood up and attempted to ambulate without calling for staff. Since then, staff have been attempting to keep her in the living room for close observation. Arina speaks in broken Vietnamese but is able to communicate that she is concerned with her BLE swelling (R>L) and that this is unusual for her. She continually tells me in an anxious manner that her right leg doesn't work and that she wants to get up and go. She repeats her dislike for sitting around multiple times and that she wants to move. I attempt to relay to her the normal process following a total hip replacement and that her muscles are weakened from the surgery and will take time to heal, during which we will utilize therapy to build her strength back up. It is unclear whether she understands as she continues to appear mildly anxious and confused. VSS. Staff is without concerns beyond fall risk above, for which fall preventions are in place. No therapy notes available since 10/03.---10/08/24Arina is seated in her recliner in the common, her daughter at her side and able to translate during my visit both ways. She reports she feels her mother is doing well, acknowledges she has pain to her right hip, especially with ambulation, but believes it is well-managed on current regimen. Pt is currently with ice pack in place. Arina is pleasant, denies concerns today. She does ask me if she can have a weems catheter placed so she doesn't have to get up to urinate. I explain the reasoning why this is not best practice and she expresses understanding. VSS. Staff is without concerns today. Per therapy notes = Conducted gait training with FWW ~5 steps encouragement to continue task. pt limited distance.Maxwell. sit/stand from toilet and from wc CGA cues for safety. pvt transfer toilet/wc Maxwell of 1 . standing balance techniques with tolerance up to 2 minutes . pt speaks [place] and has difficulty following instruction.---Arina is doing well today, seated in her recliner, reports she is constipated but has received Miralax from nursing. Her daughter is at bedside to translate for me. Arina continues to report discomfort to her right hip but pain is managed and she improving with therapy, walking longer distances. VSS. Staff is without concerns today.---10/14/24Arina is seated in a recliner in the common area, no family available for translation, but she is able to make her concerns to me known -- namely the edema of her BLE. Pt had been refusing compression wraps but staff was able to convince her to wear them today. She has them elevated when at rest when able. Staff remain keeping her close for increased observation. VSS. Staff is without concerns today. Per therapy notes = Patient ambulated 40 ft on level surfaces with a FWW, requiring CGA. Pt reported increased leg pain this date, nursing aware. Limited distances due to pain.---10/16/24Arina is seated in her recliner in the common area, doing well today, but is later seen attempting to stand up independently without attempting to speak to anyone because she needs to use the restroom. A nearby patient has stopped her and I remind her to wait until help can be obtained. A PRINCIPAL BIOSTATISTICIAN quickly comes to assist her. For this reason, staff continues to keep a very close eye on her. VSS. Staff is without concerns. Per therapy notes = Patient ambulated 200 ft on level surfaces with a FWW, requiring CGA. Patient required cueing for navigation. Pt performed sit to stand to FWW requiring CGA.---10/20/24Arina is seated in the recliner in the common area, resting comfortable, language barrier makes ROS difficult but she tells me she is okay today and denies pain at this time. 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 She reportedly slid out of the recliner onto the floor. VSS. Staff is without concerns today. Per therapy notes = 200 ft SBA with FWW with cues to slow gait speed for safety due to pt impuslively ambulating too quickly. Pt performs STS SBA but occasionally sits impulsively once she is mcc standing - this may be due to language barrier.---10/22/24Dorys kahn is resting comfortably in the recliner in the common area, has been doing fairly well, remains without complaints overall. VSS. Staff does not report any concerns. Per therapy notes = Patient ambulated 200 ft on level surfaces with a FWW, requiring CGA. Patient required cueing for navigation and decreasing srikanth.---10/24/24Dorys kahn is resting in the recliner in the common area, initially napping but awakens to my voice. She tells me she is doing well and denies pain. Otherwise she is not able to communicate with me very much. Her edema to her BLE continues to improve, she has yvrose hose in place today. VSS. Staff is without concerns today. Per therapy notes = Conducted gait training with FWW 200' SBA cues for safety awareness. Impulsive. sit/stand SBA . standing balance techniques. Malia Hitchcock, [facility] [address] [place], [address], [facility] 10/25/2024 08:58:49 OBGyn Episode No OBEpisode recorded.
--- OUTSIDE RECORDS SUMMARY | 2025-02-22 17:38 | XMS_ITS | Encounter Summary ---
Author Organization [facility] Address [address] [place] [address] Phone Care Team Providers Care Endless Belt Finisher Name Role Phone Isaías Peoples MD Primary Care Provi kori Encounter Details Date Type Department Care Team (Latest Contact Info) Description 09/11/2024 Transcribe Orders [facility] Preop/Pacu II [address] [place] [address] Justin Boykin MD [address] [place] [address] Pre-op testing (Primary Dx) Social History Tobacco [...] declined 08/17/2024 How often do you attend jehovah's witness or temple serv ices? Patient declined 08/17/2024 Do you belong to any clubs o r organizations such as jehovah's witness groups, unions, fraternal or athletic groups, or [...] medical care, and heating? Patient declined 08/17/2024 [facility] - Occup[facility] Stress [...] any time in the past 12 m [facility], were you homeless or living in a residential (including now)? Patient declined 08/17/2024 [facility] Util[employer] Answer Date Recorded In the past [...] documented as of this encounter Care Teams Endless Belt Finisher Relationship Specialty Start Date End Date Isaías Peoples MD [address] , [address] [place] [address] PCP - General Family Medicine 08/17/24 documented as of this encounter
[2025-02-22 17:40] VITALS: BP 152/55; PULSE 74; RESP 20; TEMP 36.4; O2SAT 96
--- NOTE | 2025-02-22 18:25 | ED_ITS ---
HPI - URI/Sore Throat General Chief Complaint: Upper Respiratory Infection Stated Complaint: cough/rattling chest Time Seen by Provider: 02/22/25 18:10 Source: patient and RN notes reviewed Mode of arrival: ambulatory Limitations: no limitations History of Present Illness HPI Narrative: 85-year-old female presents to the [facility] with daughter complaining of cough for 1 week. Patient denies any other upper respiratory symptoms, she reports having a pinkish white cough that is intermittent. Patient has any shortness of breath reports fatigue. Patient is seen at an urgent care 1 week ago head negative viral swabs and a chest x-ray obtained that was unremarkable. Patient returns today because daughter says that she had a rattle in her chest. Patient has any fevers, body aches, chills, chest pain, difficulty breathing, any other upper respiratory symptoms, any other symptoms. Patient has a history of high cholesterol and hypertension. Deny any significant cardiac history. No history of heart failure. Related Data Home Medications ?Medication ?Instructions ?Recorded ?Confirmed ?Last Taken ?Type benzonatate 100 mg capsule mg PO 02/22/25 Unknown His tory duloxetine 30 mg capsule,delayed mg PO 02/22/25 Unkno wn History release ezetimibe 10 mg tablet mg 02/22/25 Unknown History fluticasone propionate 50 intranasal 02/22/25 Unknown History mcg/actuation nasal spray,suspension lisinopril 5 mg tablet mg 02/22/25 Unknown History pantoprazole 40 mg tablet,delayed mg PO 02/22/25 Unkn own History release polysaccharide iron complex 150 mg mg 02/22/25 Unknow n History iron capsule (Ferrex) rosuvastatin 40 mg tablet mg 02/22/25 Unknown History Allergies Allergy/AdvReac Type Severity Reaction Status Date / Time cefazolin Allergy Unknown Unknown Verified 02/22/25 17:48 morphine Allergy Unknown Unknown Verified 02/22/25 17:48 Penicillins Allergy Unknown Unknown Verified 02/22/25 17:48 Sulfa (Sulfonamide Allergy Unknown Unknown Verified 02/22/25 17:48 Antibiotics) Review of Systems Review of Systems: CONSTITUTIONAL: Denies fever, chills, or sweats. Positive for fatigue. EYES: Denies visual changes, redness, or discharge. ENT: Denies rhinorrhea, congestion, sore throat, or otalgia. CARDIOVASCULAR: Denies chest pain, palpitations, or edema. RESPIRATORY: Positive for cough. Negative for wheezing or dyspnea. GASTROINTESTINAL: Denies abdominal pain, nausea, vomiting, or diarrhea. GENITOURINARY: Denies dysuria or hematuria. SKIN: Denies rash or itching. MUSCULOSKELETAL: Denies back pain, joint pain, or myalgia. NEUROLOGIC: Denies headache, numbness, or weakness. PSYCHIATRIC: Denies anxiety or depression. All other systems reviewed are negative, except as documented in HPI. PMFSH Past Medical History Medical History Elevated cholesterol Hypertension Surgical History Surgical History History of bilateral knee replacement Social History Social History Smoking status: Never smoker Alcohol intake: current Alcohol use details: social Substance use: never Living arrangements: with family Gender identity (if verbalized by the patient): Female Comments At the time of my signature, I reviewed and agree with the nursing past medical, surgical, social, and family history. There is no relevant family history pertinent to the patient complaint. Exam Narrative: GENERAL: This is a well-nourished, well-developed adult, in no apparent distress. They are non ill-appearing, nontoxic appearing. HEAD: normocephalic, atraumatic. EYES: Sclera clear/white. Conjunctiva normal. Vision is grossly intact. Extraocular movements intact EARS: External ears normal, Hearing grossly intact. NOSE: External nose normal THROAT: Mucous membranes moist, NECK: Neck supple, CARDIOVASCULAR: Regular rate and rhythm without murmurs, gallops, or rubs. RESPIRATORY: Crackles present the left lower lobe.. Breath sounds equal bilaterally. No wheezes, rales, or rhonchi. SKIN: warm, Dry, intact with no suspicious lesions or rash, good texture and turgor. NEURO: awake, alert, and oriented to person, place and time. There were no obvious focal neurologic abnormalities. EXTREMITIES: No joint tenderness, effusion. 1+ pitting edema to bilateral lower extremities BACK: Nontender without deformity. No CVA tenderness. Course Course Level of Care: Express Care Visit Vital Signs Vital signs: Vital Signs Temperature 97.6 F 02/22/25 17:40 Pulse Rate 74 02/22/25 17:40 Respiratory Rate 20 02/22/25 17:40 Blood Pressure 152/55 H 02/22/25 17:40 Pulse Oximetry 96 02/22/25 17:40 Oxygen Delivery Room Air 02/22/25 17:40 Temperature 97.6 F 02/22/25 17:40 Pulse Rate 74 02/22/25 17:40 Respiratory Rate 20 02/22/25 17:40 Blood Pressure 152/55 H 02/22/25 17:40 Pulse Oximetry 96 02/22/25 17:40 Oxygen Delivery Room Air 02/22/25 17:40 Transfer Transfered to: [facility] Transportation: Other (Private vehicle) Transfer rationale: Rule out heart failure with lab work and further evaluatio, patient requires higher level care. Accepting physician: Dr. Nair [facility] Narrative Medical decision making narrative: Chest x-ray shows concerns of congestive heart failure. Patient's symptoms are also clinically concerning for heart failure. Patient has no history of heart failure any significant cardiac problems. Patient nontoxic appearing, no ap parent distress. Patient has a history of hypertension and high cholesterol. Given patient's symptoms and findings, it is recommend the patient seek a higher level care and proceed immediately to the emergency department. Patient and patient's daughter agreeable to go to [facility] ER. Called over to [facility] ER and spoke to Diana Dillon who is aware this patient and Dr. Nair who accepted this patient for transfer. Patient buys remain NPO proceed immediately to the ER. Patient is hemodynamically stable to go to the hospital via private vehicle with daughter. Differential Diagnosis Differential Diagnosis: Pneumonia, congestive heart failure, upper respiratory infection, sinusitis, viral illness Imaging Data Radiologist's impression: ITS Impressions Chest X-Ray 02/22/25 18:05 IMPRESSION: 1. Cardiomegaly and atherosclerotic aorta. 2. Diffusely increased reticular nodular interstitial pattern suggests probable chronic interstitial fibrosis. Superimpose mild congestive heart failure is suggested with blunting of costophrenic angles. Please correlate with lab results including BNP. Critical Care Time Critical Care Time Critical Care Time: No Discharge Plan Discharge Clinical Impression: Abnormal chest x-ray Cough Qualifiers: Cough type: acute Qualified Code(s): R05.1 - Acute cough Patient Disposition: Acute Care Hospital Condition: Stable Patient Language: Kinyarwanda Prescriptions: No Action polysaccharide iron complex [Ferrex 150] 150 mg iron capsule benzonatate 100 mg capsule PO pantoprazole 40 mg tablet,delayed release (DR/EC) PO lisinopril 5 mg tablet fluticasone propionate 50 mcg/actuation spray,suspension INTRANASAL ezetimibe 10 mg tablet rosuvastatin 40 mg tablet duloxetine 30 mg capsule,delayed release(DR/EC) PO Follow-up/Referrals: Carito,Vincenzo Dumont DO [Primary Care Provider, Unknown] Time of Disposition: 18:25
== END 2025-02-22 18:34 | disposition short-term general hospital (02) ==
PROVIDERS: PCP Family Medicine
DX: R05.1 Acute cough (principal); E78.00 Pure hypercholesterolemia, unspecified; I70.0 Atherosclerosis of aorta; I11.0 Hypertensive heart disease with heart failure
CPT/HCPCS: 71046; 99213; G0463